=== PATIENT | female | born 1940 | race Caucasian/White ===

== ENCOUNTER 2019-02-25 14:07 | IRF | payer MEDICARE, OTHER, SELFPAY ==
[2019-02-25 14:51] LABS: Glucose Point of Care 216 (65-105)
[2019-02-25 14:57] VITALS: BP 151/73; PULSE 65; RESP 18; TEMP 36.2; O2SAT 96; BMI 18.3
--- NOTE | 2019-02-25 16:47 | P.DS_ITS ---
DS: Summary Time Spent with Patient Time attestation: Total time spent providing and/or coordinating discharge ser vices: 35 minutes DS: Data Data Completed and Pending Labs on day of discharge: Labs from last 24 hours 02/25/19 14:46 POC Capillary Glucose 216 H Discharge Plan Discharge Discharge Medications: No Action ergocalciferol (vitamin D2) 2,500 unit capsule 2,500 unit PO DAILY RF: 0 atenolol 25 mg tablet 50 mg PO BID RF: 0 Durlaza 162.5 mg capsule,extended release 24hr 162.5 mg PO DAILY RF: 0 Januvia 100 mg Tablet 100 mg PO DAILY RF: 0 ezetimibe 10 mg tablet 10 mg PO DAILY RF: 0 levofloxacin [Levaquin] 750 mg Tablet 750 mg PO DAILY 3 Days Qty: 3 RF: 0 lisinopril 40 mg tablet 40 mg PO DAILY 30 Days Qty: 30 RF: 0 insulin aspart U-100 [Novolog U-100 Insulin aspart] 100 unit/mL Solution 3 - 6 unit subcut TIDWM Qty: 10 RF: 0 Date of admission: 02/25/19 14:07 Primary Care Provider: UNKNOWN,DOCTOR Admitting Provider: Sher Ortega Attending physician on admission: Sher Ortega
[2019-02-25 17:41] LABS: Glucose Point of Care 174 (65-105)
[2019-02-25 18:00] VITALS: PULSE 64
[2019-02-25] MEDS: atenoloL 50 MG TABLET PO (18:00)
[2019-02-25 18:01] VITALS: BP 146/56; PULSE 64
--- NOTE | 2019-02-25 20:36 | ADMGEN ---
This patient, Marily St, was admitted to [facility] Room 219-02. Patient/family oriented to hospital policies and general routines including ID bracelet, bed and alarms, visiting hours, pain management, procedures, bathroom and other care routines, personal items, smoking policy, room service/diet, and visiting hours. Valuables list has been completed. Information on how to activate the Rapid Response Team has been discussed. Patient/Family are encouraged to report perceived risks to care and to ask questions if they do not understand what they are told or what they should do. 1450 Here per 3rd med./surg. staff in bed, awake, alert, no complaints, up in bed, call parsons within reach.
[2019-02-25 21:11] VITALS: BP 154/57; PULSE 65; RESP 20; TEMP 36.3; O2SAT 94
[2019-02-26 04:59] LABS: Basophils Absolute Auto 0.1 K/mm3 (0.0-0.1); Basophils Percent Auto 0.9 % (0.2-1.2); Eosinophils Absolute Auto 0.2 K/mm3 (0-0.3); Eosinophils Percent Auto 1.6 % (0-4.4); Hematocrit 40.9 % (37.0-47.0); Hemoglobin 13.8 g/dL (12.0-15.0); Immature Granulocyte Absolute 0.08 K/mm3 (0.00-0.031); Immature Granulocyte Percent A 0.6 % (0-0.5); Lymphocytes Absolute Auto 3.76 K/mm3 (0.9-3.2); Mean Corpuscular HGB Conc 33.7 g/dl (32-36); Mean Corpuscular Hemoglobin 29.9 pg (26-34); Mean Corpuscular Volume 88.7 fl (80-100); Mean Platelet Volume 10.8 fl (7.4-10.4); Monocytes Absolute Auto 1.4 K/mm3 (0.1-0.6); Monocytes Percent Auto 9.3 % (2.6-8.5); Neutrophils Absolute Auto 8.9 K/mm3 (1.3-6.7); Neutrophils Percent Auto 61.6 % (45.5-73.1); Platelet Count Result 299 k/mm3 (150-375); Red Blood Count 4.61 M/mm3 (4.2-5.4); Red Cell Distribution Width 13.6 % (11.5-14.5); White Blood Count 14.5 K/mm3 (4.5-10.0)
[2019-02-26 05:11] LABS: Blood Urea Nitrogen 22 mg/dL (7-17); Calcium 8.9 mg/dL (8.4-10.2); Carbon Dioxide 26 mmol/L (22-30); Chloride 104 mmol/L (98-107); Cholesterol 170 mg/dL (0-200); Estimated CRCL calculation 40 ml/min; Estimated Glomerular Filt Rate > 60; Glucose 247 mg/dL (65-105); HDL Direct 25 mg/dL; Sodium 137 mmol/L (137-145); Triglycerides 167 mg/dL (<150)
[2019-02-26 05:22] LABS: LDL Cholesterol Direct 132 mg/dL
[2019-02-26 06:00] VITALS: BP 215/74; PULSE 56; RESP 20; TEMP 36.4; O2SAT 94
[2019-02-26 06:53] LABS: Glucose Point of Care 244 (65-105)
[2019-02-26 07:14] VITALS: BP 120/88
[2019-02-26] MEDS: INSULIN ASPART (*BKC) 100 UNITS/ML SUB-Q ×3 (09:06→17:16)
[2019-02-26 09:08] VITALS: PULSE 56
[2019-02-26] MEDS: EZETIMIBE 10 MG TABLET PO (09:08)
[2019-02-26] MEDS: ASPIRIN 81 MG ENTERIC TABLET 162 MG PO (09:08)
[2019-02-26] MEDS: atenoloL 50 MG TABLET PO ×2 (09:08→17:15)
[2019-02-26] MEDS: lisinopriL 20 MG TABLET 40 MG PO (09:09)
[2019-02-26 12:13] LABS: Glucose Point of Care 274 (65-105)
--- NOTE | 2019-02-26 13:48 | RPD ---
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 The patient needs physician monitoring and treatment of hypertension, hyperglycemia, UTI with urinary incontinence, monitoring for adverse reactions to new medications, monitoring of infection, and pain control. The patient requires nursing services for frequent neuro checks, anticoagulation therapy, medication management and education, pressure relief and skin care management, monitoring of labs, bowel and bladder training, diabetes management and education, and fall/safety precautions. Deficits include:ADLs, Balance, Endurance, Family Training/Education, Mobility, Pain Management, ROM, Safety, Strength, Transfers, Speech, and Cognition. Keyliner/Case Management for: Discharge Planning and Patient/Family Counseling Physical Therapy: 5 days per week for 90 minutes. Treatments may include: Therapeutic Exercise, Gait Training, Neuromuscular Re-education, Transfer Training, Community Reintegration, Bed Mobility, Patient/Family Education, Wheelchair Mobility Group Therapy/Concurrent Therapy Rationales: -Improve attention span during functional activities in a distracted environment. -Enhance problem solving and/or adequate judgment skills during functional activities in a distracted environment. -Promote increased safety awareness in a distracted environment to reduce fall risk with functional tasks, transfers, and ambulation to allow a more safe, self-sufficient return to the home environment. -Improve dynamic balance skills to promote safety and independence with functional activities in a distracted environment for maximum gain. Occupational Therapy: 5 days per week for 90 minutes. Treatments may include: Therapeutic Exercise, Therapeutic Activity, Cognitive Training, Self-Care Transfer Training, Community Reintegration, Home Management, Patient/Family Education, Wheelchair Mobility Training, Energy Conservation Training Group Therapy/Concurrent Therapy Rationales: -Allow therapist to observe and teach generalization and carry-over of skills learned in individual therapy. -Enhance problem solving and sequencing skills during therapeutic activities in a distracted environment. -Promote increased safety awareness in a realistic setting to reduce fall risk with functional tasks due to visual and verbal distractions. -Increase functional level with ADLs, ADL transfers and use of adaptive equipment through therapeutic activities with others while promoting safety to allow a more safe, self-sufficient return home. Medical Prognosis: Good Anticipated Length of Stay: 10 days Rehab Goals: Eating Goal: 05-Setup or Clean Up Assistance Oral Hygiene Goal: 06-Independent Toileting Hygiene Goal: 04-Supervision or Touching Assistance Shower/Bathe Self Goal: 04-Supervision or Touching Assistance Upper Body Dressing Goal: 04-Supervision or Touching Assistance Lower Body Dressing Goal: 04-Supervision or Touching Assistance Putting On/Taking Off Footwear Goal: 04-Supervision or Touching Assistance Rolling Left and Right Goal: 05-Setup or Clean Up Assistance Sit to Lying Goal: 05-Setup or Clean Up Assistance Lying to Sitting on Side of Bed Goal: 05-Setup or Clean Up Assistance Sit to Stand Goal: 05-Setup or Clean Up Assistance Chair/[id number] Transfer Goal: 05-Setup or Clean Up Assistance Toilet Transfer Goal: 04-Supervision or Touching Assistance Car Transfer Goal: 05-Setup or Clean Up Assistance Walk 10' Goal: 03-Partial/Moderate Assistance Walk 50' with Two Turns Goal: 03-Partial/Moderate Assistance Walk 150' Goal: 09-Not Applicable W
[2019-02-26 13:56] VITALS: BMI 18.3
[2019-02-26 14:00] VITALS: BP 150/69; PULSE 62; RESP 16; TEMP 36.6; O2SAT 94
[2019-02-26 14:17] VITALS: BMI 18.3
--- NOTE | 2019-02-26 14:40 | PCNSR ---
On 02/26/19, the student, Saumya Madison, provided care and completed [facility] documentation on this patient. I have reviewed the student's documentation and agree with the findings.
--- NOTE | 2019-02-26 15:14 | REHAB_ITS ---
DATE OF SERVICE: 02/26/2019 An 79-year-old right-handed female has been admitted to [facility] with the patient's primary rehab impairment category of a stroke and etiological diagnosis of acute infarct in right lentiform nucleus. The patient was seen [id number] on February 26, 2019 at 08:30 a.m. HISTORY OF PRESENT ILLNESS: An 79-year-old right-handed female with past medical history of: 1. Hypertension. 2. Diabetes mellitus. Presented to the [facility] Room on 02/22/2019 with the complaints of left-sided weakness along with slurred speech and recurrent falls. She is usually very active and goes golfing about 3 times a week. She had a CT scan, which revealed right lacunar infract of undetermined age. MRI of the brain documented acute infarct, the right lentiform nucleus, along with the chronic cystic encephalomalacia in the left frontal lobe and right parietal lobe, deep white matter. In addition to the nonspecific white matter disease and pontine disease on the basis of the chronic small-vessel ischemic changes. Carotid Doppler study documented less than 50% stenosis in the right and left internal carotid artery. The chest x-ray was negative. Her blood pressure was elevated at 206/96. She received one dose of hydralazine and was continued on lisinopril and atenolol. Her blood sugar was 349 with A1c of 9.8. UA was positive and patient was started on IV Rocephin and urine cultures were pending at that time. Medical complications included hypertension, hyperglycemia, urinary incontinence, and falls. The patient was hesitant to start any new medication before consulting her primary care physician, who is Dr. Jonathon Love in [facility], because she was unable to tolerate statins in the past and she was already on Zetia. Neurology service was consulted and confirmed finding consistent with bihemispheric stroke with left hemiparesis on clinical examination, along with the left facial droop, dysarthria, unstable gait and turned instability. She was discharged to [facility] on aspirin for DVT prophylaxis and p.o. antibiotic for the UTI. Therapy was initiated at the acute care facility and patient was transferred to us from [facility] on 02/25/2019. Surgery or fall, the patient has had no major surgeries in the last 100 days prior to admission. There were falls in the past year. They have had falls with injury in the past year. PAST MEDICAL HISTORY: Hyperlipidemia, hypertension, diabetes mellitus, closed displaced fracture of the shaft of the 5th metacarpal bone of left hand, arthritis, bilateral cataract, myocardial infarction, and shingles. PAST SURGICAL HISTORY: Cataract extraction, colectomy, cardiac catheterization, intestinal surgery, CABG, and cholecystectomy. SOCIAL HISTORY: The patient is retired and lives alone. She is a former smoker of 30 packs a year with a stop date in 1997. She does not use alcohol or any illicit drugs. FAMILY HISTORY: Mother had colon cancer. Father had a cerebrovascular accident. Sibling had esophageal cancer as well. PRIOR LEVEL OF FUNCTION: The patient was independent in eating, oral care, toileting hygiene, bathing and shower upper body, lower body, footwear, left and right rolling, sit to lying, lying to sitting, sit to stand, bed to chair, toilet transfer. She was previously ambulating independently with no assistive device for 750 feet. She was not using any wheelchair and she was able to complete 14 stairs independently. CURRENT LEVEL OF FUNCTION: The patient required setup for the eating or cleanup. Partial assistance for the oral care, toileting hygiene, bathing and shower, upper body dressing, lower body dressing, footwear, rolling left and right, sit to lying, lying to sitting, sit to stand, bed to chair transfer,
[2019-02-26 17:01] LABS: Glucose Point of Care 216 (65-105)
[2019-02-26 17:15] VITALS: PULSE 62
[2019-02-26 21:41] VITALS: BP 140/80; PULSE 93; RESP 20; TEMP 36.5; O2SAT 94
[2019-02-27 06:00] VITALS: BP 142/80; PULSE 60; RESP 20; TEMP 36.5; O2SAT 95
[2019-02-27 06:51] LABS: Glucose Point of Care 212 (65-105)
[2019-02-27] MEDS: INSULIN ASPART (*BKC) 100 UNITS/ML SUB-Q ×2 (08:49→12:34)
[2019-02-27 08:50] VITALS: PULSE 60
[2019-02-27] MEDS: EZETIMIBE 10 MG TABLET PO (08:50)
[2019-02-27] MEDS: ASPIRIN 81 MG ENTERIC TABLET 162 MG PO (08:50)
[2019-02-27] MEDS: atenoloL 50 MG TABLET PO ×2 (08:50→17:31)
[2019-02-27] MEDS: lisinopriL 20 MG TABLET 40 MG PO (08:51)
[2019-02-27 12:10] LABS: Glucose Point of Care 253 (65-105)
--- NOTE | 2019-02-27 12:51 | WPDNEURORHBP ---
Subjective Date/time seen: 02/27/19 12:51 Interval history: patient is here with a history of stroke and left-sided hemiparesis arm and leg equally involved. She is being treated presently for the UTI does not have any chills or fever sore throat headache nausea vomiting chest pain shortness of breath she was present physically at the time of the weekly conference with her uncle and the friend for 50 years she gives me the history of hypertension and diabetes otherwise moving forward in the rehab Review of Systems Review of Systems: All systems reviewed & are unremarkable except as noted in HPI and below Functional Status Ambulation Ability Ambulation Assistive Devices: Parallel Bars Exam Const: General: comfortable and no acute distress HENMT: Other: normal Eyes: General: appearance normal, both eyes and all related structures Neck: Neck: supple and no JVD Resp: Effort & Inspection: normal respiratory effort Auscultation: clear to auscultation bilaterally Cardio: Rate: regular rate Rhythm: regular rhythm GI: GI Palp: Yes Soft to palpation Auscultation: normal bowel sounds Skin: General skin exam: normal color and no rashes or lesions noted Neuro: Other: patient's mental status examination is fairly decent and intact she is awake alert well oriented in time place and person she has a little neglect on the left side and moderately severe left-sided hemiparesis on the leg equally involved needing assistance in the all the activities of daily living 1+ deep tendon reflexes abnormal gait needing significant assistance and positive Babinski sign on the left side Extrem: General: normal to inspection Objective Data Vital Signs Vital Signs: Vital Signs - 24 hr 02/26/19 14:00 02/26/19 17:15 02/26/19 21:41 Temperature 36.6 C 36.5 C Pulse Rate 62 62 93 Respiratory Rate 16 20 Blood Pressure 150/69 H 140/80 Pulse Oximetry 94 94 02/27/19 06:00 02/27/19 08:50 Temperature 36.5 C Pulse Rate 60 60 Respiratory Rate 20 Blood Pressure 142/80 H Pulse Oximetry 95 Intake/Output Intake/Output: Intake & Output 02/24/19 02/25/19 02/26/19 02/27/19 23:59 23:59 23:59 23:59 Intake Total 840 360 Balance 840 360 Meds/Results Medications: Active Medications Generic Name Dose Route Start Last Admin Trade Name Freq PRN Reason Stop Dose Admin Aspirin 162 mg 02/26/19 09:00 02/27/19 08:50 Aspirin Ec PO 162 mg DAILY JEFF Administration Atenolol 50 mg 02/25/19 17:00 02/27/19 08:50 Tenormin PO 50 mg BID JEFF Administration Dextrose 12.5 gm 02/25/19 17:23 Dextrose 50% Syringe IV PUSH PRN PRN Hypoglycemia Protocol Ezetimibe 10 mg 02/26/19 09:00 02/27/19 08:50 Zetia PO 10 mg DAILY JEFF Administration Glucagon 1 mg 02/25/19 17:23 Glucagon For Inj IM PRN PRN Hypoglycemia Protocol Glucose 15 gm 02/25/19 17:23 Glutose 15 PO PRN PRN Hypoglycemia Protocol Dextrose 1,000 mls @ 100 mls/hr 02/25/19 17:23 Dextrose 5% 1,000 Ml IVPB PRN PRN Hypoglycemia Protocol Insulin Aspart 3 - 6 units 02/25/19 17:25 02/27/19 12:34 Novolog SUB-Q 4 units TIDWM JEFF Administration Protocol Levofloxacin 750 mg 02/27/19 09:00 02/27/19 08:51 Levaquin Tab PO 750 mg Q48HR JEFF Administration Lisinopril 40 mg 02/26/19 09:00 02/27/19 08:51 Prinivil PO 40 mg DAILY JEFF Administration Sitagliptin Phosphate 100 mg 02/26/19 09:00 02/27/19 08:51 Januvia PO 100 mg DAILY JEFF Administration Labs Labs: Laboratory Results - last 24 hr 02/26/19 02/27/19 02/27/19 16:55 06:48 12:02 POC Capillary Glucose 216 H 212 H 253 H Progress Note: A&P Assessment and Plan (1) DVT prophylaxis: Code(s): Z29.9 - Encounter for prophylactic measures, unspecified Status: Acute (2) UTI (urinary tract infection): Code(s): N39.0 - Urinary tract infection, s
[2019-02-27 14:00] VITALS: BP 159/77; PULSE 68; RESP 18; TEMP 36.1; O2SAT 96
[2019-02-27 17:11] LABS: Glucose Point of Care 200 (65-105)
[2019-02-27 17:31] VITALS: PULSE 68
[2019-02-27 21:26] VITALS: BP 150/70; PULSE 60; RESP 18; TEMP 36.6; O2SAT 94
[2019-02-28 06:11] LABS: Glucose Point of Care 211 (65-105)
[2019-02-28 06:46] VITALS: PULSE 60; RESP 18; TEMP 36.2; O2SAT 93
[2019-02-28] MEDS: INSULIN ASPART (*BKC) 100 UNITS/ML SUB-Q ×2 (09:04→16:58)
[2019-02-28 09:09] VITALS: PULSE 60
[2019-02-28] MEDS: lisinopriL 20 MG TABLET 40 MG PO (09:09)
[2019-02-28] MEDS: atenoloL 50 MG TABLET PO ×2 (09:09→16:58)
[2019-02-28] MEDS: ASPIRIN 81 MG ENTERIC TABLET 162 MG PO (09:09)
[2019-02-28] MEDS: EZETIMIBE 10 MG TABLET PO (09:09)
--- NOTE | 2019-02-28 12:57 | WPDNEURORHBP ---
Subjective Date/time seen: 02/28/19 12:57 Interval history: patient is doing fairly well however her sugars are up being on sliding scale and also Januvia she cannot tolerate metformin so we will have to add small dose of Lantus at night overall neurological status is improved Patient denies any headache nausea vomiting chest pain shortness of breath double vision blurred vision etc Review of Systems Review of Systems: All systems reviewed & are unremarkable except as noted in HPI and below Functional Status Ambulation Ability Ambulation Assistive Devices: Cane, Marty and Parallel Bars Exam Const: General: comfortable and no acute distress HENMT: Other: normal exam Eyes: General: appearance normal, both eyes and all related structures Neck: Neck: supple and no JVD Resp: Effort & Inspection: normal respiratory effort Auscultation: clear to auscultation bilaterally Cardio: Rate: regular rate Rhythm: regular rhythm GI: GI Palp: Yes Soft to palpation Auscultation: normal bowel sounds Skin: General skin exam: normal color and no rashes or lesions noted Neuro: Other: mental status examination is normal cranial examination reveals left-sided facial weakness related to the stroke left-sided hemiparesis improving Extrem: General: normal to inspection Objective Data Vital Signs Vital Signs: Vital Signs - 24 hr 02/27/19 14:00 02/27/19 17:31 02/27/19 21:26 Temperature 36.1 C L 36.6 C Pulse Rate 68 68 60 Respiratory Rate 18 18 Blood Pressure 159/77 H 150/70 H Pulse Oximetry 96 94 02/28/19 06:46 02/28/19 09:09 Temperature 36.2 C L Pulse Rate 60 60 Respiratory Rate 18 Blood Pressure Pulse Oximetry 93 Intake/Output Intake/Output: Intake & Output 02/25/19 02/26/19 02/27/19 02/28/19 23:59 23:59 23:59 23:59 Intake Total 840 840 240 Balance 840 840 240 Meds/Results Medications: Active Medications Generic Name Dose Route Start Last Admin Trade Name Freq PRN Reason Stop Dose Admin Aspirin 162 mg 02/26/19 09:00 02/28/19 09:09 Aspirin Ec PO 162 mg DAILY JEFF Administration Atenolol 50 mg 02/25/19 17:00 02/28/19 09:09 Tenormin PO 50 mg BID JEFF Administration Dextrose 12.5 gm 02/25/19 17:23 Dextrose 50% Syringe IV PUSH PRN PRN Hypoglycemia Protocol Ezetimibe 10 mg 02/26/19 09:00 02/28/19 09:09 Zetia PO 10 mg DAILY JEFF Administration Glucagon 1 mg 02/25/19 17:23 Glucagon For Inj IM PRN PRN Hypoglycemia Protocol Glucose 15 gm 02/25/19 17:23 Glutose 15 PO PRN PRN Hypoglycemia Protocol Dextrose 1,000 mls @ 100 mls/hr 02/25/19 17:23 Dextrose 5% 1,000 Ml IVPB PRN PRN Hypoglycemia Protocol Insulin Aspart 3 - 6 units 02/25/19 17:25 02/28/19 12:09 Novolog SUB-Q Not Given TIDWM JEFF Protocol Insulin Glargine 5 units 02/28/19 21:00 Lantus SUB-Q HS JEFF Levofloxacin 750 mg 02/27/19 09:00 02/27/19 08:51 Levaquin Tab PO 750 mg Q48HR JEFF Administration Lisinopril 40 mg 02/26/19 09:00 02/28/19 09:09 Prinivil PO 40 mg DAILY JEFF Administration Sitagliptin Phosphate 100 mg 02/26/19 09:00 02/28/19 09:09 Januvia PO 100 mg DAILY JEFF Administration Labs Labs: Laboratory Results - last 24 hr 02/27/19 02/28/19 17:06 05:52 POC Capillary Glucose 200 H 211 H Progress Note: A&P Assessment and Plan (1) Left hemiparesis: Code(s): G81.94 - Hemiplegia, unspecified affecting left nondominant side Status: Acute (2) DVT prophylaxis: Code(s): Z29.9 - Encounter for prophylactic measures, unspecified Status: Acute (3) UTI (urinary tract infection): Code(s): N39.0 - Urinary tract infection, site not specified Status: Acute (4) HLD (hyperlipidemia): Code(s): E78.5 - Hyperlipidemia, unspecified Status: Chronic (5) Acute CVA (cerebrovascular accident):
[2019-02-28 14:00] VITALS: BP 152/54; PULSE 62; RESP 18; TEMP 36.2; O2SAT 95
[2019-02-28 16:34] LABS: Glucose Point of Care 201 (65-105)
[2019-02-28 16:58] VITALS: PULSE 62
[2019-02-28] MEDS: AMOXICILLIN/CLAVULANATE K 875-125 MG TAB 1 TABLET PO (20:02)
[2019-02-28] MEDS: INSULIN GLARGINE (*BKC) 100 UNITS/ML SUB-Q (20:25)
[2019-02-28 22:00] VITALS: BP 150/54; PULSE 54; RESP 18; TEMP 36.6; O2SAT 95
[2019-03-01 05:56] VITALS: BP 124/56; PULSE 62; RESP 18; TEMP 36.4; O2SAT 95
[2019-03-01 06:14] LABS: Glucose Point of Care 186 (65-105)
[2019-03-01] MEDS: lisinopriL 20 MG TABLET 40 MG PO (09:22)
[2019-03-01] MEDS: ASPIRIN 81 MG ENTERIC TABLET 162 MG PO (09:22)
[2019-03-01] MEDS: AMOXICILLIN/CLAVULANATE K 875-125 MG TAB 1 TABLET PO ×2 (09:22→20:09)
[2019-03-01 09:23] VITALS: PULSE 62
[2019-03-01] MEDS: atenoloL 50 MG TABLET PO ×2 (09:23→17:08)
[2019-03-01] MEDS: EZETIMIBE 10 MG TABLET PO (09:23)
--- NOTE | 2019-03-01 11:49 | WPDNEURORHBP ---
Subjective Date/time seen: 03/01/19 11:49 Interval history: patient is very happy that she has taken 29 steps of course with the assistance she denies any chest pain shortness of breath and any new neurological symptoms particularly nothing to suggest TIA headache chest pain shortness of breath Review of Systems Review of Systems: All systems reviewed & are unremarkable except as noted in HPI and below Functional Status Ambulation Ability Ability to Ambulate 10 Feet: Moderate Assistance X 1 Ambulation Assistive Devices: Cane, Marty Exam Const: General: comfortable and no acute distress HENMT: General nose exam: Normal nares present Mouth: Yes moist mucous membranes Eyes: General: appearance normal, both eyes and all related structures Neck: Neck: supple and no JVD Resp: Effort & Inspection: normal respiratory effort Auscultation: clear to auscultation bilaterally Cardio: Rate: regular rate Rhythm: regular rhythm GI: GI Palp: Yes Soft to palpation Auscultation: normal bowel sounds Skin: General skin exam: normal color and no rashes or lesions noted Neuro: Other: patient's mental status is normal cranial nerve examination reveals facial asymmetry related to the stroke and also the hemiparesis which is improving of course with the assistance Extrem: General: normal to inspection Objective Data Vital Signs Vital Signs: Vital Signs - 24 hr 02/28/19 14:00 02/28/19 16:58 02/28/19 22:00 Temperature 36.2 C L 36.6 C Pulse Rate 62 62 54 L Respiratory Rate 18 18 Blood Pressure 152/54 H 150/54 H Pulse Oximetry 95 95 03/01/19 05:56 03/01/19 09:23 Temperature 36.4 C Pulse Rate 62 62 Respiratory Rate 18 Blood Pressure 124/56 L Pulse Oximetry 95 Intake/Output Intake/Output: Intake & Output 02/26/19 02/27/19 02/28/19 03/01/19 23:59 23:59 23:59 23:59 Intake Total 840 840 720 240 Balance 840 840 720 240 Meds/Results Medications: Active Medications Generic Name Dose Route Start Last Admin Trade Name Freq PRN Reason Stop Dose Admin Amoxicillin/Clavulanate Potassium 1 tablet 02/28/19 21:00 03/01/19 09:22 Augmentin 875-125 Mg Tab PO 03/07/19 09:01 1 tablet Q12HR JEFF Administration Aspirin 162 mg 02/26/19 09:00 03/01/19 09:22 Aspirin Ec PO 162 mg DAILY JEFF Administration Atenolol 50 mg 02/25/19 17:00 03/01/19 09:23 Tenormin PO 50 mg BID JEFF Administration Dextrose 12.5 gm 02/25/19 17:23 Dextrose 50% Syringe IV PUSH PRN PRN Hypoglycemia Protocol Ezetimibe 10 mg 02/26/19 09:00 03/01/19 09:23 Zetia PO 10 mg DAILY JEFF Administration Glucagon 1 mg 02/25/19 17:23 Glucagon For Inj IM PRN PRN Hypoglycemia Protocol Glucose 15 gm 02/25/19 17:23 Glutose 15 PO PRN PRN Hypoglycemia Protocol Dextrose 1,000 mls @ 100 mls/hr 02/25/19 17:23 Dextrose 5% 1,000 Ml IVPB PRN PRN Hypoglycemia Protocol Insulin Aspart 3 - 6 units 02/25/19 17:25 03/01/19 08:45 Novolog SUB-Q Not Given TIDWM [facility] Protocol Insulin Glargine 5 units 02/28/19 21:00 02/28/19 20:25 Lantus SUB-Q 5 units HS JEFF Administration Lisinopril 40 mg 02/26/19 09:00 03/01/19 09:22 Prinivil PO 40 mg DAILY JEFF Administration Sitagliptin Phosphate 100 mg 02/26/19 09:00 03/01/19 09:23 Januvia PO 100 mg DAILY JEFF Administration Labs Labs: Laboratory Results - last 24 hr 02/28/19 03/01/19 16:30 05:45 POC Capillary Glucose 201 H 186 H Progress Note: A&P Assessment and Plan (1) Left hemiparesis: Code(s): G81.94 - Hemiplegia, unspecified affecting left nondominant side Status: Acute (2) DVT prophylaxis: Code(s): Z29.9 - Encounter for prophylactic measures, unspecified Status: Acute (3) UTI (urinary tract infection): Code(s): N39.0 - Urinary tract infection, site not specified Status: Acute (4) HLD (hype
[2019-03-01] MEDS: INSULIN ASPART (*BKC) 100 UNITS/ML SUB-Q (12:07)
--- NOTE | 2019-03-01 12:45 | PCDIET ---
Nutrition Follow-Up Complete: Nutrition Diagnosis: Inadequate energy intake related to decreased appetite as evidenced by unintentional weight loss of approximetley 7.5kg in 2-3 months and report of low appetite. Nutrition Goals: Patient will consume >75% of all meals and drink supplemental drink Glucerna. Goals met. Patient consumed average of 79% of meals since 02/27/19 on diabetic diet which is appropriate. Patient reports taking Glucerna 1x daily and would like to continue to receive daily. Last recorded weight is 47 kg. Recommend obtaining new weight. Bowel Motility: No documented BM; however, patient denies GI c/o at time of visit. Labs Reviewed: Glu (186) Meds Noted: Augmentin, Novolog, Lantus, Januvia Additional Notes: No documented skin breakdown. Recommend adding medication to promote bowel movement, if indicated. Nutrition Monitoring and Evaluation: Will follow up in 7 days.
--- NOTE | 2019-03-01 13:07 | PCPTNOTE ---
Bridget AYolanda David PTA completed an inpatient rehab wheelchair evaluation on [address] on 03/01/2019. The patient is unable to safely and independently ambulate household distances due to their current impairments. Their diagnosis is CVA and their impairments include decreased strength, decreased endurance, decreased range of motion, decreased balance, and lower extremity weakness. Marily's weight bearing status is weight-bearing as tolerated on the bilateral lower legs. The patient demonstrates significant functional mobility limitations that impair their ability to participate in mobility-related activities of daily living (MRADLs), including toileting, feeding, dressing, grooming, and bathing in the customary locations in the home. These limitations cannot be sufficiently resolved by the use of an appropriately fitted cane or walker. It is recommended that the patient utilize a wheelchair for functional mobility within the home in order to facilitate optimal safety, independence and participation in all MRADL's and adequately access their home environment on a regular basis. The patient's home provides adequate access between rooms, maneuvering space, and surfaces to accommodate the recommended wheelchair. The use of a wheelchair for functional mobility is strongly recommended and the patient is receptive to using the wheelchair. The use of this wheelchair will significantly improve the patient's ability to participate in MRADLS and the patient will use it on a regular basis in the home. This will facilitate optimal safety, independence, and participation. The patient has demonstrated sufficient physical and mental capabilities needed to safely propel a manual wheelchair that is provided in the home during a typical day. Recommended Wheelchair Frame: standard Recommended Wheelchair Size: 18x18 Recommended Wheelchair Cushion: standard Wheelchair Leg Recommendations: swing away leg rests - Anti-tippers are recommended due to patient demonstrating increased risk for falls. They would benefit from anti-tippers with added safety and stabilization. - A LEFT arm trough is recommended because the patient has hemiplegia. - Adjustable arm height is recommended because the patient requires an arm height that is different than that which is available using non-adjustable arms. The patient spends at least 2 hours per day in the wheelchair. 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 Referring Physician Date I agree with and certify that the above recommendation is medically necessary. Referring Physician Date
--- NOTE | 2019-03-01 13:12 | PCPTNOTE ---
[address] was evaluated for a malcolm cane on 03/01/2019 by this physical therapist medical receptionist medical assistant. The malcolm cane will resolve patient's mobility limitations and will be used for ADL's within the home. The patient can safely use the malcolm cane. ?The malcolm cane will resolve the patient?s mobility deficits, including decreased left sided weakness in left upper extremity and left lower extremity, decreased balance and decreased endurance.
[2019-03-01 14:00] VITALS: BP 128/62; PULSE 66; RESP 18; TEMP 36.3; O2SAT 97
[2019-03-01 16:29] LABS: Glucose Point of Care 260 (65-105)
[2019-03-01 16:38] LABS: Glucose Point of Care 127 (65-105)
[2019-03-01 17:08] VITALS: PULSE 66
[2019-03-01] MEDS: INSULIN GLARGINE (*BKC) 100 UNITS/ML SUB-Q (20:43)
[2019-03-01 22:00] VITALS: BP 168/56; PULSE 75; RESP 18; TEMP 36.2; O2SAT 99
[2019-03-02 05:53] VITALS: BP 126/56; PULSE 82; RESP 18; TEMP 36.5; O2SAT 98
[2019-03-02 06:31] LABS: Glucose Point of Care 196 (65-105)
[2019-03-02] MEDS: ASPIRIN 81 MG ENTERIC TABLET 162 MG PO (08:42)
[2019-03-02] MEDS: AMOXICILLIN/CLAVULANATE K 875-125 MG TAB 1 TABLET PO ×2 (08:42→20:17)
[2019-03-02 08:43] VITALS: PULSE 82
[2019-03-02] MEDS: lisinopriL 20 MG TABLET 40 MG PO (08:43)
[2019-03-02] MEDS: EZETIMIBE 10 MG TABLET PO (08:43)
[2019-03-02] MEDS: atenoloL 50 MG TABLET PO ×2 (08:43→17:30)
--- NOTE | 2019-03-02 12:00 | WPDNEURORHBP ---
Subjective Date/time seen: 03/02/19 12:00 Interval history: patient is little emotional today and crying due to having had stroke otherwise she is improving in the left hemiparesis she does have movement in the left shoulder and also left foot and able to take several steps with the help of the therapist denies any headache nausea vomiting chest pain or shortness of breath Review of Systems Review of Systems: All systems reviewed & are unremarkable except as noted in HPI and below Functional Status Ambulation Ability Ability to Ambulate 10 Feet: Moderate Assistance X 1 Ambulation Assistive Devices: Cane, Marty Exam Const: General: comfortable and no acute distress HENMT: General nose exam: Normal nares present Mouth: Yes moist mucous membranes Eyes: General: appearance normal, both eyes and all related structures Neck: Neck: supple and no JVD Resp: Effort & Inspection: normal respiratory effort Auscultation: clear to auscultation bilaterally Cardio: Rate: regular rate Rhythm: regular rhythm Skin: General skin exam: normal color and no rashes or lesions noted Neuro: Other: patient's mental status is normal cranial nerve examination reveals flattening of the left nasal labial fold and moderate left hemiparesis which is slowly improving She needs assistance all the activities of daily living Objective Data Vital Signs Vital Signs: Vital Signs - 24 hr 03/01/19 14:00 03/01/19 17:08 03/01/19 22:00 Temperature 36.3 C L 36.2 C L Pulse Rate 66 66 75 Respiratory Rate 18 18 Blood Pressure 128/62 168/56 H Pulse Oximetry 97 99 03/02/19 05:53 03/02/19 08:43 Temperature 36.5 C Pulse Rate 82 82 Respiratory Rate 18 Blood Pressure 126/56 L Pulse Oximetry 98 Intake/Output Intake/Output: Intake & Output 02/27/19 02/28/19 03/01/19 03/02/19 23:59 23:59 23:59 23:59 Intake Total 840 720 720 360 Balance 840 720 720 360 Meds/Results Medications: Active Medications Generic Name Dose Route Start Last Admin Trade Name Freq PRN Reason Stop Dose Admin Amoxicillin/Clavulanate Potassium 1 tablet 02/28/19 21:00 03/02/19 08:42 Augmentin 875-125 Mg Tab PO 03/07/19 09:01 1 tablet Q12HR JEFF Administration Aspirin 162 mg 02/26/19 09:00 03/02/19 08:42 Aspirin Ec PO 162 mg DAILY JEFF Administration Atenolol 50 mg 02/25/19 17:00 03/02/19 08:43 Tenormin PO 50 mg BID JEFF Administration Dextrose 12.5 gm 02/25/19 17:23 Dextrose 50% Syringe IV PUSH PRN PRN Hypoglycemia Protocol Ezetimibe 10 mg 02/26/19 09:00 03/02/19 08:43 Zetia PO 10 mg DAILY JEFF Administration Glucagon 1 mg 02/25/19 17:23 Glucagon For Inj IM PRN PRN Hypoglycemia Protocol Glucose 15 gm 02/25/19 17:23 Glutose 15 PO PRN PRN Hypoglycemia Protocol Dextrose 1,000 mls @ 100 mls/hr 02/25/19 17:23 Dextrose 5% 1,000 Ml IVPB PRN PRN Hypoglycemia Protocol Insulin Aspart 3 - 6 units 02/25/19 17:25 03/02/19 08:42 Novolog SUB-Q Not Given TIDWM [facility] Protocol Insulin Glargine 5 units 02/28/19 21:00 03/01/19 20:43 Lantus SUB-Q 5 units HS JEFF Administration Lisinopril 40 mg 02/26/19 09:00 03/02/19 08:43 Prinivil PO 40 mg DAILY JEFF Administration Sitagliptin Phosphate 100 mg 02/26/19 09:00 03/02/19 08:43 Januvia PO 100 mg DAILY JEFF Administration Labs Labs: Laboratory Results - last 24 hr 03/01/19 03/01/19 03/02/19 11:45 16:34 06:26 POC Capillary Glucose 260 H 127 H 196 H Progress Note: A&P Assessment and Plan (1) Left hemiparesis: Code(s): G81.94 - Hemiplegia, unspecified affecting left nondominant side Status: Acute (2) DVT prophylaxis: Code(s): Z29.9 - Encounter for prophylactic measures, unspecified Status: Acute (3) UTI (urinary tract infection): Code(s): N39.0 - Urinary tract infection, site not specified S
[2019-03-02 12:15] LABS: Glucose Point of Care 256 (65-105)
[2019-03-02] MEDS: INSULIN ASPART (*BKC) 100 UNITS/ML SUB-Q (12:23)
[2019-03-02 14:00] VITALS: BP 175/67; PULSE 62; RESP 18; TEMP 36.4; O2SAT 94
[2019-03-02 17:07] LABS: Glucose Point of Care 144 (65-105)
[2019-03-02 17:30] VITALS: PULSE 62
[2019-03-02 20:16] VITALS: BP 183/63; PULSE 56; RESP 18; TEMP 36.6; O2SAT 93
[2019-03-02] MEDS: INSULIN GLARGINE (*BKC) 100 UNITS/ML SUB-Q (20:19)
[2019-03-03 06:00] VITALS: BP 140/60; PULSE 59; RESP 18; TEMP 36.6; O2SAT 95
[2019-03-03 06:52] LABS: Glucose Point of Care 155 (65-105)
[2019-03-03] MEDS: AMOXICILLIN/CLAVULANATE K 875-125 MG TAB 1 TABLET PO ×2 (08:44→20:07)
[2019-03-03] MEDS: EZETIMIBE 10 MG TABLET PO (08:44)
[2019-03-03] MEDS: ASPIRIN 81 MG ENTERIC TABLET 162 MG PO (08:44)
[2019-03-03] MEDS: lisinopriL 20 MG TABLET 40 MG PO (08:44)
[2019-03-03 08:45] VITALS: PULSE 64
[2019-03-03] MEDS: atenoloL 50 MG TABLET PO ×2 (08:45→17:26)
[2019-03-03 12:02] LABS: Glucose Point of Care 228 (65-105)
[2019-03-03] MEDS: INSULIN ASPART (*BKC) 100 UNITS/ML SUB-Q (12:24)
[2019-03-03 14:00] VITALS: BP 180/72; PULSE 56; RESP 18; TEMP 36.6; O2SAT 96
[2019-03-03 16:59] LABS: Glucose Point of Care 144 (65-105)
[2019-03-03 17:26] VITALS: PULSE 566
[2019-03-03] MEDS: INSULIN GLARGINE (*BKC) 100 UNITS/ML SUB-Q (20:06)
[2019-03-03 21:29] VITALS: BP 163/59; PULSE 56; RESP 20; TEMP 36.3; O2SAT 96
[2019-03-03 21:54] LABS: Glucose Point of Care 220 (65-105)
[2019-03-04 06:00] VITALS: BP 169/70; PULSE 72; RESP 16; TEMP 36.2; O2SAT 97
[2019-03-04 06:33] LABS: Glucose Point of Care 155 (65-105)
[2019-03-04 09:09] VITALS: PULSE 74
[2019-03-04] MEDS: AMOXICILLIN/CLAVULANATE K 875-125 MG TAB 1 TABLET PO ×2 (09:09→20:15)
[2019-03-04] MEDS: EZETIMIBE 10 MG TABLET PO (09:09)
[2019-03-04] MEDS: ASPIRIN 81 MG ENTERIC TABLET 162 MG PO (09:09)
[2019-03-04] MEDS: atenoloL 50 MG TABLET PO ×2 (09:09→16:50)
[2019-03-04] MEDS: lisinopriL 20 MG TABLET 40 MG PO (09:10)
[2019-03-04 11:56] LABS: Glucose Point of Care 243 (65-105)
[2019-03-04] MEDS: INSULIN ASPART (*BKC) 100 UNITS/ML SUB-Q (12:20)
--- NOTE | 2019-03-04 13:32 | WPDNEURORHBP ---
Subjective Date/time seen: 03/04/19 13:32 Interval history: this patient is here having had a stroke of right hemisphere with the left hemiparesis along with history of diabetes mellitus and high blood pressure also being treated for urinary tract infection She denies any headache chest pain or shortness of breath She is depressed and at times has raised concern about emotional state and depression She is not suicidal Review of Systems Review of Systems: All systems reviewed & are unremarkable except as noted in HPI and below Constitutional: Constitutional: Reports no additional constitutional complaints Eyes: Eyes: Reports no additional eye complaints ENT: Reports system reviewed and no additional complaints, except as documented Cardiovascular: Cardiovascular: Reports no additional cardiovascular complaints Respiratory: Respiratory: Reports no additional respiratory complaints Gastrointestinal: Gastrointestinal: Reports no additional gastrointestinal complaints Musculoskeletal: Musculoskeletal: Reports no additional musculoskeletal complaints Integumentary/Breasts: Skin/Breast: Reports system reviewed and no additional complaints, except as docu Neurologic: Comments: she was able to walk 20 steps and happy about it Psychiatric: Comments: patient is emotional relatively tearful and depressed Functional Status Ambulation Ability Ability to Ambulate 10 Feet: Moderate Assistance X 1 Ambulation Assistive Devices: Railings Exam Const: General: comfortable and no acute distress HENMT: General nose exam: Normal nares present Eyes: General: appearance normal, both eyes and all related structures Neck: Neck: supple and no JVD Resp: Effort & Inspection: normal respiratory effort Auscultation: clear to auscultation bilaterally Cardio: Rate: regular rate Rhythm: regular rhythm GI: GI Palp: Yes Soft to palpation Auscultation: normal bowel sounds Skin: General skin exam: normal color and no rashes or lesions noted Neuro: Other: left-sided hemiparesis improvement noted needing assistance all the activities of daily living Extrem: General: normal to inspection Objective Data Vital Signs Vital Signs: Vital Signs - 24 hr 03/03/19 14:00 03/03/19 17:26 03/03/19 21:29 Temperature 36.6 C 36.3 C L Pulse Rate 56 L 566 H 56 L Respiratory Rate 18 20 Blood Pressure 180/72 H 163/59 H Pulse Oximetry 96 96 03/04/19 06:00 03/04/19 09:09 Temperature 36.2 C L Pulse Rate 72 74 Respiratory Rate 16 Blood Pressure 169/70 H Pulse Oximetry 97 Intake/Output Intake/Output: Intake & Output 03/01/19 03/02/19 03/03/19 03/04/19 23:59 23:59 23:59 23:59 Intake Total 720 700 840 360 Balance 720 700 840 360 Meds/Results Medications: Active Medications Generic Name Dose Route Start Last Admin Trade Name Freq PRN Reason Stop Dose Admin Amoxicillin/Clavulanate Potassium 1 tablet 02/28/19 21:00 03/04/19 09:09 Augmentin 875-125 Mg Tab PO 03/07/19 09:01 1 tablet Q12HR JEFF Administration Aspirin 162 mg 02/26/19 09:00 03/04/19 09:09 Aspirin Ec PO 162 mg DAILY JEFF Administration Atenolol 50 mg 02/25/19 17:00 03/04/19 09:09 Tenormin PO 50 mg BID JEFF Administration Dextrose 12.5 gm 02/25/19 17:23 Dextrose 50% Syringe IV PUSH PRN PRN Hypoglycemia Protocol Ezetimibe 10 mg 02/26/19 09:00 03/04/19 09:09 Zetia PO 10 mg DAILY JEFF Administration Glucagon 1 mg 02/25/19 17:23 Glucagon For Inj IM PRN PRN Hypoglycemia Protocol Glucose 15 gm 02/25/19 17:23 Glutose 15 PO PRN PRN Hypoglycemia Protocol Dextrose 1,000 mls @ 100 mls/hr 02/25/19 17:23 Dextrose 5% 1,000 Ml IVPB PRN PRN Hypoglycemia Protocol Insulin Aspart 3 - 6 units 02/25/19 17:25 03/04/19 12:20 Novolog SUB-Q 3 units TIDWM JEFF Administration Protocol Insulin Glargine 5 units 02/28/19 21:00 03/03/19 20
[2019-03-04 14:00] VITALS: BP 141/66; PULSE 62; RESP 18; TEMP 36.4; O2SAT 93
[2019-03-04] MEDS: ESCITALOPRAM OXALATE 5 MG TABLET PO (14:17)
[2019-03-04 16:47] LABS: Glucose Point of Care 128 (65-105)
[2019-03-04 16:50] VITALS: PULSE 60
[2019-03-04] MEDS: INSULIN GLARGINE (*BKC) 100 UNITS/ML 6 UNITS SUB-Q (20:16)
[2019-03-04 22:00] VITALS: BP 174/66; PULSE 56; RESP 16; TEMP 36.3; O2SAT 93
[2019-03-05 02:02] LABS: Glucose Point of Care 194 (65-105)
[2019-03-05 05:12] LABS: Basophils Absolute Auto 0.1 K/mm3 (0.0-0.1); Basophils Percent Auto 0.9 % (0.2-1.2); Eosinophils Absolute Auto 0.4 K/mm3 (0-0.3); Immature Granulocyte Absolute 0.13 K/mm3 (0.00-0.031); Immature Granulocyte Percent A 0.9 % (0-0.5); Lymphocytes Absolute Auto 3.43 K/mm3 (0.9-3.2); Lymphocytes Percent Auto 24.3 % (18.3-44.2); Mean Corpuscular HGB Conc 32.5 g/dl (32-36); Mean Corpuscular Hemoglobin 29.4 pg (26-34); Mean Corpuscular Volume 90.5 fl (80-100); Mean Platelet Volume 11.6 fl (7.4-10.4); Monocytes Absolute Auto 1.7 K/mm3 (0.1-0.6); Monocytes Percent Auto 11.7 % (2.6-8.5); Neutrophils Absolute Auto 8.4 K/mm3 (1.3-6.7); Neutrophils Percent Auto 59.2 % (45.5-73.1); Platelet Count Result 271 k/mm3 (150-375); Red Blood Count 4.42 M/mm3 (4.2-5.4); Red Cell Distribution Width 13.6 % (11.5-14.5); White Blood Count 14.1 K/mm3 (4.5-10.0)
[2019-03-05 05:18] LABS: Blood Urea Nitrogen 19 mg/dL (7-17); Calcium 8.9 mg/dL (8.4-10.2); Carbon Dioxide 26 mmol/L (22-30); Chloride 103 mmol/L (98-107); Estimated CRCL calculation 40 ml/min; Estimated Glomerular Filt Rate > 60; Glucose 147 mg/dL (65-105); Potassium 3.8 mmol/L (3.4-5.0); Sodium 138 mmol/L (137-145)
[2019-03-05 05:50] VITALS: BP 108/56; PULSE 55; RESP 16; TEMP 36.4; O2SAT 96
[2019-03-05 06:03] LABS: Glucose Point of Care 155 (65-105)
[2019-03-05] MEDS: AMOXICILLIN/CLAVULANATE K 875-125 MG TAB 1 TABLET PO ×2 (07:43→21:00)
[2019-03-05] MEDS: ASPIRIN 81 MG ENTERIC TABLET 162 MG PO (07:43)
[2019-03-05] MEDS: ESCITALOPRAM OXALATE 5 MG TABLET PO (07:44)
[2019-03-05] MEDS: EZETIMIBE 10 MG TABLET PO (07:44)
[2019-03-05] MEDS: atenoloL 50 MG TABLET PO ×2 (07:44→16:45)
[2019-03-05] MEDS: lisinopriL 20 MG TABLET 40 MG PO (07:44)
[2019-03-05 11:48] LABS: Glucose Point of Care 157 (65-105)
[2019-03-05 14:33] VITALS: BP 150/60; PULSE 60; RESP 18; TEMP 36; O2SAT 97
[2019-03-05 16:49] LABS: Glucose Point of Care 160 (65-105)
[2019-03-05] MEDS: INSULIN GLARGINE (*BKC) 100 UNITS/ML 6 UNITS SUB-Q (21:00)
[2019-03-05 21:04] LABS: Glucose Point of Care 166 (65-105)
[2019-03-05 21:45] VITALS: BP 144/65; PULSE 57; RESP 20; TEMP 36.4; O2SAT 93
[2019-03-06 05:53] VITALS: BP 155/57; PULSE 51; RESP 20; TEMP 36.3; O2SAT 97
[2019-03-06 07:01] LABS: Glucose Point of Care 145 (65-105)
[2019-03-06] MEDS: ASPIRIN 81 MG ENTERIC TABLET 162 MG PO (08:33)
[2019-03-06] MEDS: AMOXICILLIN/CLAVULANATE K 875-125 MG TAB 1 TABLET PO ×2 (08:33→20:16)
[2019-03-06 08:34] VITALS: PULSE 51
[2019-03-06] MEDS: atenoloL 50 MG TABLET PO ×2 (08:34→17:49)
[2019-03-06] MEDS: ESCITALOPRAM OXALATE 5 MG TABLET PO (08:34)
[2019-03-06] MEDS: EZETIMIBE 10 MG TABLET PO (08:34)
[2019-03-06] MEDS: lisinopriL 20 MG TABLET 40 MG PO (08:35)
--- NOTE | 2019-03-06 11:56 | WPDNEURORHBP ---
Subjective Date/time seen: 03/06/19 11:56 Interval history: this 79-year-old woman who has never been is here because of the stroke having left-sided hemiparesis superimposed with the urinary tract infection which is being treated and she herself is present in the team conference along with the uncle and a friend Patient is happy with the care improving overall however is still has needs Beside the hemiparesis the patient has does not have any headache chest pain shortness of breath double vision blurred vision or any new evidence of stroke or TIAs Review of Systems Constitutional: Constitutional: Reports no additional constitutional complaints Eyes: Eyes: Reports no additional eye complaints ENT: Reports system reviewed and no additional complaints, except as documented Cardiovascular: Cardiovascular: Reports no additional cardiovascular complaints Respiratory: Respiratory: Reports no additional respiratory complaints Gastrointestinal: Gastrointestinal: Reports no additional gastrointestinal complaints Genitourinary: Genitourinary: Reports no additional female genitourinary complaints Musculoskeletal: Musculoskeletal: Reports no additional musculoskeletal complaints Integumentary/Breasts: Skin/Breast: Reports system reviewed and no additional complaints, except as docu Neurologic: Reports system reviewed and no additional complaints, except as documented Psychiatric: Comments: patient's situational depression is much better she is not diet tearful are crying Functional Status Ambulation Ability Ability to Ambulate 10 Feet: Moderate Assistance X 1 Ability to Ambulate 50 Feet With 2 Turns: Moderate Assistance X 1 Ambulation Assistive Devices: Cane, Marty Exam Const: General: comfortable and no acute distress HENMT: General nose exam: Normal nares present Mouth: Yes moist mucous membranes Eyes: General: appearance normal, both eyes and all related structures Neck: Neck: supple and no JVD Resp: Effort & Inspection: normal respiratory effort Auscultation: clear to auscultation bilaterally Cardio: Rate: regular rate Rhythm: regular rhythm GI: GI Palp: Yes Soft to palpation Auscultation: normal bowel sounds Skin: General skin exam: normal color and no rashes or lesions noted Neuro: Other: mental status is normal left-sided hemiparesis is improving however she has still needs and has potential to improve Extrem: General: normal to inspection Objective Data Vital Signs Vital Signs: Vital Signs - 24 hr 03/05/19 14:33 03/05/19 21:45 03/06/19 05:53 Temperature 36.0 C L 36.4 C L 36.3 C L Pulse Rate 60 57 L 51 L Respiratory Rate 18 20 20 Blood Pressure 150/60 H 144/65 H 155/57 H Pulse Oximetry 97 93 97 03/06/19 08:34 Temperature Pulse Rate 51 L Respiratory Rate Blood Pressure Pulse Oximetry Intake/Output Intake/Output: Intake & Output 03/03/19 03/04/19 03/05/19 03/06/19 23:59 23:59 23:59 23:59 Intake Total 840 1060 480 240 Balance 840 1060 480 240 Meds/Results Medications: Active Medications Generic Name Dose Route Start Last Admin Trade Name Freq PRN Reason Stop Dose Admin Amoxicillin/Clavulanate Potassium 1 tablet 02/28/19 21:00 03/06/19 08:33 Augmentin 875-125 Mg Tab PO 03/07/19 09:01 1 tablet Q12HR JEFF Administration Aspirin 162 mg 02/26/19 09:00 03/06/19 08:33 Aspirin Ec PO 162 mg DAILY JEFF Administration Atenolol 50 mg 02/25/19 17:00 03/06/19 08:34 Tenormin PO 50 mg BID JEFF Administration Dextrose 12.5 gm 02/25/19 17:23 Dextrose 50% Syringe IV PUSH PRN PRN Hypoglycemia Protocol Ezetimibe 10 mg 02/26/19 09:00 03/06/19 08:34 Zetia PO 10 mg DAILY JEFF Administration Escitalopram Oxalate 5 mg 03/04/19 13:50 03/06/19 08:34 Lexapro PO 5 mg QAM JEFF Administration Glucagon 1 mg 02/25/19 17:23 Glucagon For Inj IM PRN PRN Hypoglycemia Protocol Glucose 15 gm
[2019-03-06 12:19] LABS: Glucose Point of Care 146 (65-105)
[2019-03-06 14:00] VITALS: BP 154/65; PULSE 55; RESP 18; TEMP 36; O2SAT 98
[2019-03-06 17:44] LABS: Glucose Point of Care 173 (65-105)
[2019-03-06 17:49] VITALS: PULSE 65
[2019-03-06 20:05] LABS: Glucose Point of Care 118 (65-105)
[2019-03-06 22:00] VITALS: BP 173/63; PULSE 58; RESP 16; TEMP 36.5; O2SAT 92
[2019-03-07 05:31] VITALS: BP 174/63; PULSE 55; RESP 16; TEMP 36.2; O2SAT 93
[2019-03-07 06:40] LABS: Glucose Point of Care 138 (65-105)
[2019-03-07] MEDS: ASPIRIN 81 MG ENTERIC TABLET 162 MG PO (08:43)
[2019-03-07] MEDS: ESCITALOPRAM OXALATE 5 MG TABLET PO (08:43)
[2019-03-07] MEDS: AMOXICILLIN/CLAVULANATE K 875-125 MG TAB 1 TABLET PO (08:43)
[2019-03-07] MEDS: EZETIMIBE 10 MG TABLET PO (08:43)
[2019-03-07] MEDS: lisinopriL 20 MG TABLET 40 MG PO (08:43)
[2019-03-07 08:45] VITALS: PULSE 58
[2019-03-07] MEDS: atenoloL 50 MG TABLET PO ×2 (08:45→17:23)
[2019-03-07 11:48] LABS: Glucose Point of Care 177 (65-105)
--- NOTE | 2019-03-07 12:50 | WPDNEURORHBP ---
Subjective Date/time seen: 03/07/19 12:50 Interval history: patient's depression is better she is moving forward and engage in therapy no new specific complaints She is recuperating from stroke with left-sided hemiparesis Review of Systems Constitutional: Constitutional: Reports no additional constitutional complaints Eyes: Eyes: Reports no additional eye complaints ENT: Reports system reviewed and no additional complaints, except as documented Cardiovascular: Cardiovascular: Reports no additional cardiovascular complaints Respiratory: Respiratory: Reports no additional respiratory complaints Gastrointestinal: Gastrointestinal: Reports no additional gastrointestinal complaints Genitourinary: Genitourinary: Reports no additional female genitourinary complaints Musculoskeletal: Musculoskeletal: Reports no additional musculoskeletal complaints Integumentary/Breasts: Skin/Breast: Reports system reviewed and no additional complaints, except as docu Neurologic: Reports system reviewed and no additional complaints, except as documented Psychiatric: Psychiatric: Reports no additional psychiatric complaints Functional Status Ambulation Ability Ability to Ambulate 10 Feet: Moderate Assistance X 1 Ability to Ambulate 50 Feet With 2 Turns: Moderate Assistance X 1 Ambulation Assistive Devices: Cane, Marty Exam Const: General: comfortable and no acute distress HENMT: General nose exam: Normal nares present Mouth: Yes moist mucous membranes Eyes: General: appearance normal, both eyes and all related structures Neck: Neck: supple and no JVD Resp: Effort & Inspection: normal respiratory effort Auscultation: clear to auscultation bilaterally Cardio: Rate: regular rate Rhythm: regular rhythm GI: GI Palp: Yes Soft to palpation Auscultation: normal bowel sounds Skin: General skin exam: normal color and no rashes or lesions noted Neuro: Other: mental status is fairly decent and intact, cranial examination is now except the facial asymmetry Left-sided hemiparesis is improving likewise the sensory deficit is also improving Extrem: General: normal to inspection Objective Data Vital Signs Vital Signs: Vital Signs - 24 hr 03/06/19 14:00 03/06/19 17:49 03/06/19 22:00 Temperature 36.0 C L 36.5 C Pulse Rate 55 L 65 58 L Respiratory Rate 18 16 Blood Pressure 154/65 H 173/63 H Pulse Oximetry 98 92 03/07/19 05:31 03/07/19 08:45 Temperature 36.2 C L Pulse Rate 55 L 58 L Respiratory Rate 16 Blood Pressure 174/63 H Pulse Oximetry 93 Intake/Output Intake/Output: Intake & Output 03/04/19 03/05/19 03/06/19 03/07/19 23:59 23:59 23:59 23:59 Intake Total 1060 480 720 540 Balance 1060 480 720 540 Meds/Results Medications: Active Medications Generic Name Dose Route Start Last Admin Trade Name Freq PRN Reason Stop Dose Admin Aspirin 162 mg 02/26/19 09:00 03/07/19 08:43 Aspirin Ec PO 162 mg DAILY JEFF Administration Atenolol 50 mg 02/25/19 17:00 03/07/19 08:45 Tenormin PO 50 mg BID JEFF Administration Dextrose 12.5 gm 02/25/19 17:23 Dextrose 50% Syringe IV PUSH PRN PRN Hypoglycemia Protocol Ezetimibe 10 mg 02/26/19 09:00 03/07/19 08:43 Zetia PO 10 mg DAILY JEFF Administration Escitalopram Oxalate 5 mg 03/04/19 13:50 03/07/19 08:43 Lexapro PO 5 mg QAM JEFF Administration Glucagon 1 mg 02/25/19 17:23 Glucagon For Inj IM PRN PRN Hypoglycemia Protocol Glucose 15 gm 02/25/19 17:23 Glutose 15 PO PRN PRN Hypoglycemia Protocol Dextrose 1,000 mls @ 100 mls/hr 02/25/19 17:23 Dextrose 5% 1,000 Ml IVPB PRN PRN Hypoglycemia Protocol Insulin Aspart 3 - 6 units 02/25/19 17:25 03/07/19 12:05 Novolog SUB-Q Not Given TIDWM [facility] Protocol Insulin Glargine 6 units 03/04/19 13:39 03/05/19 21:00 Lantus SUB-Q 6 units HS JEFF Administration Lisinopril 40 mg
[2019-03-07 14:00] VITALS: BP 178/69; PULSE 64; RESP 18; TEMP 36.1; O2SAT 93
[2019-03-07 17:07] LABS: Glucose Point of Care 136 (65-105)
[2019-03-07 17:23] VITALS: PULSE 60
[2019-03-07 21:04] LABS: Glucose Point of Care 116 (65-105)
[2019-03-07 21:11] VITALS: BP 167/70; PULSE 56; RESP 20; TEMP 36.4; O2SAT 93
[2019-03-08 06:00] VITALS: BP 174/62; PULSE 53; RESP 20; TEMP 36.1; O2SAT 93
[2019-03-08 06:59] LABS: Glucose Point of Care 140 (65-105)
[2019-03-08 07:15] VITALS: BP 211/60
[2019-03-08] MEDS: ASPIRIN 81 MG ENTERIC TABLET 162 MG PO (11:13)
[2019-03-08 11:14] VITALS: PULSE 64
[2019-03-08] MEDS: atenoloL 50 MG TABLET PO ×2 (11:14→17:21)
[2019-03-08] MEDS: ESCITALOPRAM OXALATE 5 MG TABLET PO (11:14)
[2019-03-08] MEDS: EZETIMIBE 10 MG TABLET PO (11:14)
[2019-03-08] MEDS: lisinopriL 20 MG TABLET 40 MG PO (11:15)
--- NOTE | 2019-03-08 11:35 | WPDNEURORHBP ---
Subjective Date/time seen: 03/08/19 11:35 Interval history: patient is doing well her depression is better she does not have any new specific complaints particularly denies chest pain shortness of breath Review of Systems Constitutional: Constitutional: Reports no additional constitutional complaints Eyes: Eyes: Reports no additional eye complaints ENT: Reports system reviewed and no additional complaints, except as documented Cardiovascular: Cardiovascular: Reports no additional cardiovascular complaints Respiratory: Respiratory: Reports no additional respiratory complaints Gastrointestinal: Gastrointestinal: Reports no additional gastrointestinal complaints Genitourinary: Genitourinary: Reports no additional female genitourinary complaints Musculoskeletal: Musculoskeletal: Reports no additional musculoskeletal complaints Integumentary/Breasts: Skin/Breast: Reports system reviewed and no additional complaints, except as docu Neurologic: Reports system reviewed and no additional complaints, except as documented Psychiatric: Psychiatric: Reports no additional psychiatric complaints Functional Status Ambulation Ability Ability to Ambulate 10 Feet: Moderate Assistance X 1 Ability to Ambulate 50 Feet With 2 Turns: Moderate Assistance X 1 Ambulation Assistive Devices: Cane, Marty Exam Const: General: comfortable and no acute distress HENMT: General nose exam: Normal nares present Mouth: Yes moist mucous membranes Eyes: General: appearance normal, both eyes and all related structures Neck: Neck: supple and no JVD Resp: Auscultation: clear to auscultation bilaterally Cardio: Rate: regular rate Rhythm: regular rhythm GI: GI Palp: Yes Soft to palpation Auscultation: normal bowel sounds Skin: General skin exam: normal color and no rashes or lesions noted Neuro: Other: mental status examination is decent more weakness of the left side is getting better she has already done 57 steps today which is significant improvement from the time we received her at our acute rehab Extrem: General: normal to inspection Objective Data Vital Signs Vital Signs: Vital Signs - 24 hr 03/07/19 14:00 03/07/19 17:23 03/07/19 21:11 Temperature 36.1 C L 36.4 C Pulse Rate 64 60 56 L Respiratory Rate 18 20 Blood Pressure 178/69 H 167/70 H Pulse Oximetry 93 93 03/08/19 06:00 03/08/19 11:14 Temperature 36.1 C L Pulse Rate 53 L 64 Respiratory Rate 20 Blood Pressure 174/62 H Pulse Oximetry 93 Intake/Output Intake/Output: Intake & Output 03/05/19 03/06/19 03/07/19/30/20 23:59 23:59 23:59 23:59 Intake Total 075 810 7745 300 Balance 618 667 5844 300 Meds/Results Medications: Active Medications Generic Name Dose Route Start Last Admin Trade Name Freq PRN Reason Stop Dose Admin Aspirin 162 mg 02/26/19 09:00 03/08/19 11:13 Aspirin Ec PO 162 mg DAILY JEFF Administration Atenolol 50 mg 02/25/19 17:00 03/08/19 11:14 Tenormin PO 50 mg BID JEFF Administration Dextrose 12.5 gm 02/25/19 17:23 Dextrose 50% Syringe IV PUSH PRN PRN Hypoglycemia Protocol Ezetimibe 10 mg 02/26/19 09:00 03/08/19 11:14 Zetia PO 10 mg DAILY JEFF Administration Escitalopram Oxalate 5 mg 03/04/19 13:50 03/08/19 11:14 Lexapro PO 5 mg QAM JEFF Administration Glucagon 1 mg 02/25/19 17:23 Glucagon For Inj IM PRN PRN Hypoglycemia Protocol Glucose 15 gm 02/25/19 17:23 Glutose 15 PO PRN PRN Hypoglycemia Protocol Dextrose 1,000 mls @ 100 mls/hr 02/25/19 17:23 Dextrose 5% 1,000 Ml IVPB PRN PRN Hypoglycemia Protocol Insulin Aspart 3 - 6 units 02/25/19 17:25 03/08/19 11:12 Novolog SUB-Q Not Given TIDWM [facility] Protocol Insulin Glargine 6 units 03/04/19 13:39 03/05/19 21:00 Lantus SUB-Q 6 units HS JEFF Administration Lisinopril 40 mg 02/26/19 09:00 03/08/19 11:15 Prinivil PO
[2019-03-08 12:52] LABS: Glucose Point of Care 196 (65-105)
[2019-03-08 14:00] VITALS: BP 157/79; PULSE 53; RESP 17; TEMP 36.2; O2SAT 97
--- NOTE | 2019-03-08 14:35 | PCDIET ---
Nutrition Follow-Up Complete: Nutrition Diagnosis: Inadequate energy intake related to decreased appetite as evidenced by unintentional weight loss of approximetley 7.5kg in 2-3 months and report of low appetite. Nutrition Goals: Patient will consume >75% of all meals and drink supplemental drink Glucerna. Goals met with patient consuming an average of 78% of meals since 03/02/19. Patient also reports taking Glucerna daily and feels once daily is adequate. Diet order is appropriate. Recommend continuing Glucerna 1x daily for time being. Last recorded weight is 47 kg. Recommend obtaining new weight. Bowel Motility: +BM 03/07/19. Labs Reviewed: Glu (140) Meds Noted: Novolog, Lantus, Januvia Additional Notes: No reported skin breakdown. Will continue to monitor with same goals. Nutrition Monitoring and Evaluation: Will follow up in 7 days.
[2019-03-08 17:21] VITALS: PULSE 53
[2019-03-08 17:42] LABS: Glucose Point of Care 130 (65-105)
[2019-03-08 20:45] LABS: Glucose Point of Care 157 (65-105)
[2019-03-08 22:00] VITALS: BP 187/68; PULSE 54; RESP 17; TEMP 36; O2SAT 97
[2019-03-08] MEDS: INSULIN GLARGINE (*BKC) 100 UNITS/ML 6 UNITS SUB-Q (22:28)
[2019-03-09] VITALS (7 sets, daily range): BP systolic 123–204; BP diastolic 61–74; PULSE 57–97; RESP 16–22; TEMP 36.6–37.1; O2SAT 94–100
[2019-03-09] MEDS: lisinopriL 20 MG TABLET 40 MG PO (05:12)
[2019-03-09] MEDS: atenoloL 50 MG TABLET PO ×2 (05:13→17:51)
[2019-03-09 06:32] LABS: Glucose Point of Care 140 (65-105)
[2019-03-09] MEDS: ASPIRIN 81 MG ENTERIC TABLET 162 MG PO (08:53)
[2019-03-09] MEDS: ESCITALOPRAM OXALATE 5 MG TABLET PO (08:54)
[2019-03-09] MEDS: EZETIMIBE 10 MG TABLET PO (08:54)
[2019-03-09 12:31] LABS: Glucose Point of Care 170 (65-105)
--- NOTE | 2019-03-09 13:15 | WPDNEURORHBP ---
Subjective Date/time seen: 03/09/19 13:15 Interval history: patient was relatively hypertensive earlier this morning when I was called by the night nurse however she did not need clonidine which I had ordered and the blood pressure settled down after her regular medications She is doing fairly well and stable at this point without any complaints Review of Systems Constitutional: Constitutional: Reports no additional constitutional complaints Eyes: Eyes: Reports no additional eye complaints ENT: Reports system reviewed and no additional complaints, except as documented Cardiovascular: Cardiovascular: Reports no additional cardiovascular complaints Respiratory: Respiratory: Reports no additional respiratory complaints Gastrointestinal: Gastrointestinal: Reports no additional gastrointestinal complaints Genitourinary: Genitourinary: Reports no additional female genitourinary complaints Musculoskeletal: Musculoskeletal: Reports no additional musculoskeletal complaints Integumentary/Breasts: Skin/Breast: Reports system reviewed and no additional complaints, except as docu Neurologic: Reports system reviewed and no additional complaints, except as documented Psychiatric: Psychiatric: Reports no additional psychiatric complaints Functional Status Ambulation Ability Ability to Ambulate 10 Feet: Moderate Assistance X 1 Ability to Ambulate 50 Feet With 2 Turns: Moderate Assistance X 1 Ambulation Assistive Devices: Cane, Marty Exam Const: General: comfortable and no acute distress HENMT: General nose exam: Normal nares present Mouth: Yes moist mucous membranes Eyes: General: appearance normal, both eyes and all related structures Neck: Neck: supple and no JVD Resp: Effort & Inspection: normal respiratory effort Auscultation: clear to auscultation bilaterally Cardio: Rate: regular rate Rhythm: regular rhythm GI: GI Palp: Yes Soft to palpation Auscultation: normal bowel sounds Skin: General skin exam: normal color and no rashes or lesions noted Neuro: Other: patient's left hemiparesis is improving and mental status Flick is decent and within the normal range along with a cane the examination except she does have left-sided facial weakness Objective Data Vital Signs Vital Signs: Vital Signs - 24 hr 03/08/19 14:00 03/08/19 17:21 03/08/19 22:00 Temperature 36.2 C L 36.0 C L Pulse Rate 53 L 53 L 54 L Respiratory Rate 17 17 Blood Pressure 157/79 H 187/68 H Pulse Oximetry 97 97 03/09/19 05:13 03/09/19 05:57 03/09/19 07:28 Temperature 37.1 C Pulse Rate 58 L 58 L Respiratory Rate 16 Blood Pressure 167/73 H 204/64 H Pulse Oximetry 94 03/09/19 08:27 Temperature Pulse Rate 57 L Respiratory Rate Blood Pressure 136/61 Pulse Oximetry Intake/Output Intake/Output: Intake & Output 03/06/19 03/07/19 03/08/19 03/09/19 23:59 23:59 23:59 23:59 Intake Total 720 1040 780 360 Balance 720 1040 780 360 Meds/Results Medications: Active Medications Generic Name Dose Route Start Last Admin Trade Name Freq PRN Reason Stop Dose Admin Aspirin 162 mg 02/26/19 09:00 03/09/19 08:53 Aspirin Ec PO 162 mg DAILY JEFF Administration Atenolol 50 mg 02/25/19 17:00 03/09/19 05:13 Tenormin PO 50 mg BID JEFF Administration Dextrose 12.5 gm 02/25/19 17:23 Dextrose 50% Syringe IV PUSH PRN PRN Hypoglycemia Protocol Ezetimibe 10 mg 02/26/19 09:00 03/09/19 08:54 Zetia PO 10 mg DAILY JEFF Administration Escitalopram Oxalate 5 mg 03/04/19 13:50 03/09/19 08:54 Lexapro PO 5 mg QAM JEFF Administration Glucagon 1 mg 02/25/19 17:23 Glucagon For Inj IM PRN PRN Hypoglycemia Protocol Glucose 15 gm 02/25/19 17:23 Glutose 15 PO PRN PRN Hypoglycemia Protocol Dextrose 1,000 mls @ 100 mls/hr 02/25/19 17:23 Dextrose 5% 1,000 Ml IVPB PRN PRN Hypoglycemia Protocol Insulin Aspart 3 - 6
[2019-03-09 18:11] LABS: Glucose Point of Care 138 (65-105)
[2019-03-09] MEDS: INSULIN GLARGINE (*BKC) 100 UNITS/ML 6 UNITS SUB-Q (21:20)
[2019-03-10 06:00] VITALS: BP 164/57; PULSE 55; RESP 16; TEMP 36.3; O2SAT 93
[2019-03-10 06:29] LABS: Glucose Point of Care 139 (65-105)
[2019-03-10 08:20] VITALS: PULSE 55
[2019-03-10] MEDS: atenoloL 50 MG TABLET PO ×2 (08:20→17:57)
[2019-03-10] MEDS: ASPIRIN 81 MG ENTERIC TABLET 162 MG PO (08:20)
[2019-03-10] MEDS: ESCITALOPRAM OXALATE 5 MG TABLET PO (08:21)
[2019-03-10] MEDS: lisinopriL 20 MG TABLET 40 MG PO (08:21)
[2019-03-10] MEDS: EZETIMIBE 10 MG TABLET PO (08:21)
[2019-03-10 12:09] LABS: Glucose Point of Care 217 (65-105)
[2019-03-10] MEDS: INSULIN ASPART (*BKC) 100 UNITS/ML SUB-Q (12:49)
[2019-03-10 14:00] VITALS: BP 153/50; PULSE 62; RESP 18; TEMP 36.1; O2SAT 94
[2019-03-10 17:13] LABS: Glucose Point of Care 102 (65-105)
[2019-03-10 17:57] VITALS: PULSE 62
[2019-03-10 20:40] LABS: Glucose Point of Care 197 (65-105)
[2019-03-10] MEDS: INSULIN GLARGINE (*BKC) 100 UNITS/ML 6 UNITS SUB-Q (20:49)
[2019-03-10 22:00] VITALS: BP 106/60; PULSE 80; RESP 18; TEMP 36.9; O2SAT 100
[2019-03-11 06:00] VITALS: BP 120/78; PULSE 60; RESP 20; TEMP 36.6; O2SAT 93
[2019-03-11 06:37] LABS: Glucose Point of Care 137 (65-105)
[2019-03-11 08:53] VITALS: PULSE 60
[2019-03-11] MEDS: atenoloL 50 MG TABLET PO ×2 (08:53→17:36)
[2019-03-11] MEDS: ASPIRIN 81 MG ENTERIC TABLET 162 MG PO (08:53)
[2019-03-11] MEDS: ESCITALOPRAM OXALATE 5 MG TABLET PO (08:54)
[2019-03-11] MEDS: lisinopriL 20 MG TABLET 40 MG PO (08:54)
[2019-03-11] MEDS: EZETIMIBE 10 MG TABLET PO (08:54)
[2019-03-11 12:11] LABS: Glucose Point of Care 193 (65-105)
--- NOTE | 2019-03-11 12:32 | WPDNEURORHBP ---
Subjective Date/time seen: 03/11/19 12:32 Review of Systems Review of Systems: All systems reviewed & are unremarkable except as noted in HPI and below Functional Status Ambulation Ability Ability to Ambulate 10 Feet: Minimum Assistance X 1 Ability to Ambulate 50 Feet With 2 Turns: Moderate Assistance X 1 Ambulation Assistive Devices: Cane, Marty Exam Const: General: cooperative and comfortable Eyes: General: appearance normal, both eyes and all related structures Neck: Neck: full ROM and no lymphadenopathy Thyroid: thyroid normal Resp: Effort & Inspection: normal respiratory effort Auscultation: clear to auscultation bilaterally Cardio: Rate: regular rate Rhythm: regular rhythm GI: Auscultation: normal bowel sounds Neuro: General: patient oriented x3 and moves all extremities Cranial nerves: Yes Equal, round and reactive pupils present, Yes Bilaterally intact EOM present, Yes Nystagmus not present, Yes facial symmetry, Yes Midline tongue present and Yes Normal gag reflex present Gait exam (Neuro): Ataxic gait present Motor exam (neuro): Abnormal motor strength present (left hemiparesis) Deep tendon reflexes (DTR's): Right triceps reflex intensity grade: 1+, Left triceps reflex intensity grade: 2+, Rt Biceps (C5, C6): 1+, Left biceps reflex intensity grade: 2+, Right brachioradialis reflex intensity grade: 1+, Left brachioradialis reflex intensity grade: 2+, Right patellar reflex intensity grade: 1+, Left patellar reflex intensity grade: 2+, Right ankle reflex intensity grade: 1+ and Left ankle reflex intensity grade: 2+ Plantar Reflex Responses: downgoing: right and upgoing (positive Babinski): left Psych: Appearance: grossly normal Objective Data Vital Signs Vital Signs: Vital Signs - 24 hr 03/10/19 14:00 03/10/19 17:57 03/10/19 22:00 Temperature 36.1 C L 36.9 C Pulse Rate 62 62 80 Respiratory Rate 18 18 Blood Pressure 153/50 H 106/60 Pulse Oximetry 94 100 03/11/19 06:00 03/11/19 08:53 Temperature 36.6 C Pulse Rate 60 60 Respiratory Rate 20 Blood Pressure 120/78 Pulse Oximetry 93 Intake/Output Intake/Output: Intake & Output 03/08/19 03/09/19 03/10/19 03/11/19 23:59 23:59 23:59 23:59 Intake Total 780 600 680 360 Balance 780 600 680 360 Meds/Results Medications: Active Medications Generic Name Dose Route Start Last Admin Trade Name Freq PRN Reason Stop Dose Admin Aspirin 162 mg 02/26/19 09:00 03/11/19 08:53 Aspirin Ec PO 162 mg DAILY JEFF Administration Atenolol 50 mg 02/25/19 17:00 03/11/19 08:53 Tenormin PO 50 mg BID JEFF Administration Dextrose 12.5 gm 02/25/19 17:23 Dextrose 50% Syringe IV PUSH PRN PRN Hypoglycemia Protocol Ezetimibe 10 mg 02/26/19 09:00 03/11/19 08:54 Zetia PO 10 mg DAILY JEFF Administration Escitalopram Oxalate 5 mg 03/04/19 13:50 03/11/19 08:54 Lexapro PO 5 mg QAM JEFF Administration Glucagon 1 mg 02/25/19 17:23 Glucagon For Inj IM PRN PRN Hypoglycemia Protocol Glucose 15 gm 02/25/19 17:23 Glutose 15 PO PRN PRN Hypoglycemia Protocol Dextrose 1,000 mls @ 100 mls/hr 02/25/19 17:23 Dextrose 5% 1,000 Ml IVPB PRN PRN Hypoglycemia Protocol Insulin Aspart 3 - 6 units 02/25/19 17:25 03/11/19 12:01 Novolog SUB-Q Not Given [facility] Protocol Insulin Glargine 6 units 03/04/19 13:39 03/10/19 20:49 Lantus SUB-Q 6 units HS JEFF Administration Lisinopril 40 mg 02/26/19 09:00 03/11/19 08:54 Prinivil PO 40 mg DAILY JEFF Administration Sitagliptin Phosphate 100 mg 02/26/19 09:00 03/11/19 08:54 Januvia PO 100 mg DAILY JEFF Administration Labs Labs: Laboratory Results - last 24 hr 03/10/19 03/10/19 03/11/19 16:45 20:16 06:14 POC Capillary Glucose 102 197 H 137 H 03/11/19 11:50 POC Capillary Glucose 193 H Progress Note: A&P Assessment and Plan (1) Dep
[2019-03-11 14:00] VITALS: BP 175/80; PULSE 58; RESP 16; TEMP 37; O2SAT 94
[2019-03-11 17:07] LABS: Glucose Point of Care 121 (65-105)
[2019-03-11 17:36] VITALS: PULSE 58
[2019-03-11] MEDS: INSULIN GLARGINE (*BKC) 100 UNITS/ML 6 UNITS SUB-Q (20:26)
[2019-03-11 21:25] LABS: Glucose Point of Care 160 (65-105)
[2019-03-11 22:00] VITALS: BP 140/80; PULSE 61; RESP 18; TEMP 36.9; O2SAT 94
[2019-03-12] VITALS (7 sets, daily range): BP systolic 130–172; BP diastolic 62–90; PULSE 57–62; RESP 17–18; TEMP 36.3–36.7; O2SAT 92–94
[2019-03-12 06:01] LABS: Basophils Absolute Auto 0.1 K/mm3 (0.0-0.1); Basophils Percent Auto 0.9 % (0.2-1.2); Eosinophils Absolute Auto 0.4 K/mm3 (0-0.3); Eosinophils Percent Auto 3.2 % (0-4.4); Hematocrit 40.2 % (37.0-47.0); Hemoglobin 13.2 g/dL (12.0-15.0); Immature Granulocyte Percent A 0.9 % (0-0.5); Lymphocytes Absolute Auto 3.38 K/mm3 (0.9-3.2); Lymphocytes Percent Auto 28.9 % (18.3-44.2); Mean Corpuscular HGB Conc 32.8 g/dl (32-36); Mean Corpuscular Hemoglobin 29.7 pg (26-34); Mean Corpuscular Volume 90.3 fl (80-100); Mean Platelet Volume 10.9 fl (7.4-10.4); Monocytes Absolute Auto 1.2 K/mm3 (0.1-0.6); Neutrophils Absolute Auto 6.6 K/mm3 (1.3-6.7); Neutrophils Percent Auto 56.1 % (45.5-73.1); Platelet Count Result 337 k/mm3 (150-375); Red Blood Count 4.45 M/mm3 (4.2-5.4); Red Cell Distribution Width 13.9 % (11.5-14.5); White Blood Count 11.7 K/mm3 (4.5-10.0)
[2019-03-12 06:05] LABS: Blood Urea Nitrogen 13 mg/dL (7-17); Carbon Dioxide 28 mmol/L (22-30); Chloride 104 mmol/L (98-107); Estimated CRCL calculation 46 ml/min; Estimated Glomerular Filt Rate > 60; Glucose 125 mg/dL (65-105); Sodium 138 mmol/L (137-145)
[2019-03-12 07:42] LABS: Glucose Point of Care 138 (65-105)
[2019-03-12] MEDS: ASPIRIN 81 MG ENTERIC TABLET 162 MG PO (08:47)
[2019-03-12] MEDS: lisinopriL 20 MG TABLET 40 MG PO (08:48)
[2019-03-12] MEDS: EZETIMIBE 10 MG TABLET PO (08:48)
[2019-03-12] MEDS: atenoloL 50 MG TABLET PO ×2 (08:48→17:15)
[2019-03-12] MEDS: ESCITALOPRAM OXALATE 5 MG TABLET PO (08:48)
[2019-03-12 12:25] LABS: Glucose Point of Care 218 (65-105)
[2019-03-12] MEDS: INSULIN ASPART (*BKC) 100 UNITS/ML SUB-Q (12:51)
[2019-03-12] MEDS: ERGOCALCIFEROL 50,000 UNIT CAPSULE 50000 UNITS PO (15:17)
[2019-03-12 17:36] LABS: Glucose Point of Care 125 (65-105)
[2019-03-12] MEDS: INSULIN GLARGINE (*BKC) 100 UNITS/ML 6 UNITS SUB-Q (21:02)
[2019-03-12 21:26] LABS: Glucose Point of Care 148 (65-105)
[2019-03-13 06:00] VITALS: BP 166/61; PULSE 97; RESP 20; TEMP 36.4; O2SAT 98
[2019-03-13 07:07] LABS: Glucose Point of Care 129 (65-105)
[2019-03-13] MEDS: ESCITALOPRAM OXALATE 5 MG TABLET PO (07:47)
[2019-03-13] MEDS: ASPIRIN 81 MG ENTERIC TABLET 162 MG PO (07:47)
[2019-03-13 07:48] VITALS: PULSE 64
[2019-03-13] MEDS: EZETIMIBE 10 MG TABLET PO (07:48)
[2019-03-13] MEDS: atenoloL 50 MG TABLET PO ×2 (07:48→17:32)
[2019-03-13] MEDS: lisinopriL 20 MG TABLET 40 MG PO (07:48)
--- NOTE | 2019-03-13 12:23 | WPDNEURORHBP ---
Subjective Date/time seen: 03/13/19 12:23 Interval history: patient is slowly progressing in rehab and improving the left-sided hemiparesis walking about 40 feet with assistance of course quite motivated and energetic the family members were present at the time of the meeting 1 of them was sister from [place] the questions from the OT and PT in the nursing were answered to them Patient is doing fairly well but still needing lot of assistance Review of Systems Constitutional: Constitutional: Reports no additional constitutional complaints Eyes: Eyes: Reports no additional eye complaints ENT: Reports system reviewed and no additional complaints, except as documented Cardiovascular: Cardiovascular: Reports no additional cardiovascular complaints Respiratory: Respiratory: Reports no additional respiratory complaints Gastrointestinal: Gastrointestinal: Reports no additional gastrointestinal complaints Genitourinary: Genitourinary: Reports no additional female genitourinary complaints Musculoskeletal: Musculoskeletal: Reports no additional musculoskeletal complaints Integumentary/Breasts: Skin/Breast: Reports system reviewed and no additional complaints, except as docu Neurologic: Reports system reviewed and no additional complaints, except as documented Psychiatric: Psychiatric: Reports no additional psychiatric complaints Functional Status Ambulation Ability Ability to Ambulate 10 Feet: Minimum Assistance X 1 Ability to Ambulate 50 Feet With 2 Turns: Moderate Assistance X 1 Ambulation Assistive Devices: Cane, Marty Exam Const: General: comfortable and no acute distress HENMT: General nose exam: Normal nares present Mouth: Yes moist mucous membranes Eyes: General: appearance normal, both eyes and all related structures Neck: Neck: supple and no JVD Resp: Effort & Inspection: normal respiratory effort Auscultation: clear to auscultation bilaterally Cardio: Rate: regular rate Rhythm: regular rhythm GI: GI Palp: Yes Soft to palpation Auscultation: normal bowel sounds Skin: General skin exam: normal color and no rashes or lesions noted Neuro: Other: improving left-sided hemiparesis walking about 40 feet with a cane Extrem: General: normal to inspection Objective Data Vital Signs Vital Signs: Vital Signs - 24 hr 03/12/19 14:00 03/12/19 14:35 03/12/19 17:15 Temperature 36.3 C L 36.3 C L Pulse Rate 57 L 57 L 57 L Respiratory Rate 17 17 Blood Pressure 166/62 H 166/62 H Pulse Oximetry 93 93 03/12/19 20:19 03/13/19 06:00 03/13/19 07:48 Temperature 36.4 C L 36.4 C Pulse Rate 62 97 64 Respiratory Rate 18 20 Blood Pressure 172/70 H 166/61 H Pulse Oximetry 92 98 Intake/Output Intake/Output: Intake & Output 03/10/19 03/11/19 03/12/19 03/13/19 23:59 23:59 23:59 23:59 Intake Total 680 660 480 640 Balance 680 660 480 640 Meds/Results Medications: Active Medications Generic Name Dose Route Start Last Admin Trade Name Freq PRN Reason Stop Dose Admin Aspirin 162 mg 02/26/19 09:00 03/13/19 07:47 Aspirin Ec PO 162 mg DAILY JEFF Administration Atenolol 50 mg 02/25/19 17:00 03/13/19 07:48 Tenormin PO 50 mg BID JEFF Administration Dextrose 12.5 gm 02/25/19 17:23 Dextrose 50% Syringe IV PUSH PRN PRN Hypoglycemia Protocol Ezetimibe 10 mg 02/26/19 09:00 03/13/19 07:48 Zetia PO 10 mg DAILY JEFF Administration Ergocalciferol 50,000 unit 03/12/19 09:00 03/12/19 15:17 Drisdol PO 50,000 unit Mo@0900 JEFF Administration Escitalopram Oxalate 5 mg 03/04/19 13:50 03/13/19 07:47 Lexapro PO 5 mg QAM JEFF Administration Glucagon 1 mg 02/25/19 17:23 Glucagon For Inj IM PRN PRN Hypoglycemia Protocol Glucose 15 gm 02/25/19 17:23 Glutose 15 PO PRN PRN Hypoglycemia Protocol Dextrose 1,000 mls @ 100 mls/hr 02/25/19 17:23 Dextrose 5% 1,000 Ml IVPB PRN PRN Hypoglyce
[2019-03-13 12:47] LABS: Glucose Point of Care 193 (65-105)
[2019-03-13 14:00] VITALS: BP 165/66; PULSE 62; RESP 16; TEMP 35.8; O2SAT 94
[2019-03-13 17:32] VITALS: PULSE 62
[2019-03-13 17:47] LABS: Glucose Point of Care 123 (65-105)
[2019-03-13] MEDS: INSULIN GLARGINE (*BKC) 100 UNITS/ML 6 UNITS SUB-Q (21:01)
[2019-03-13 21:12] LABS: Glucose Point of Care 172 (65-105)
[2019-03-13 22:00] VITALS: BP 157/64; PULSE 79; RESP 16; TEMP 36.3; O2SAT 92
[2019-03-14 05:53] LABS: Glucose Point of Care 128 (65-105)
[2019-03-14 06:00] VITALS: BP 174/80; PULSE 58; RESP 16; TEMP 36.1; O2SAT 96
[2019-03-14] MEDS: lisinopriL 20 MG TABLET 40 MG PO (08:33)
[2019-03-14] MEDS: EZETIMIBE 10 MG TABLET PO (08:33)
[2019-03-14] MEDS: ESCITALOPRAM OXALATE 5 MG TABLET PO (08:33)
[2019-03-14] MEDS: ASPIRIN 81 MG ENTERIC TABLET 162 MG PO (08:33)
[2019-03-14 08:34] VITALS: PULSE 68
[2019-03-14] MEDS: atenoloL 50 MG TABLET PO ×2 (08:34→17:52)
[2019-03-14 11:54] LABS: Glucose Point of Care 194 (65-105)
--- NOTE | 2019-03-14 11:57 | WPDNEURORHBP ---
Subjective Date/time seen: 03/14/19 11:57 Interval history: This 79-year-old is on the acute rehab because having had a stroke with left-sided hemiparesis from which she is improving Patient denies any new complaints particularly denies any chest pain shortness of breath nausea vomiting abdominal pain fevers chills or sore throat She is happy with the care she is receiving and engage in therapy and quite motivated Review of Systems Constitutional: Constitutional: Reports no additional constitutional complaints Eyes: Eyes: Reports no additional eye complaints ENT: Reports system reviewed and no additional complaints, except as documented Cardiovascular: Cardiovascular: Reports no additional cardiovascular complaints Respiratory: Respiratory: Reports no additional respiratory complaints Gastrointestinal: Gastrointestinal: Reports no additional gastrointestinal complaints Genitourinary: Genitourinary: Reports no additional female genitourinary complaints Musculoskeletal: Musculoskeletal: Reports no additional musculoskeletal complaints Integumentary/Breasts: Skin/Breast: Reports system reviewed and no additional complaints, except as docu Neurologic: Reports system reviewed and no additional complaints, except as documented Psychiatric: Psychiatric: Reports no additional psychiatric complaints Functional Status Ambulation Ability Ability to Ambulate 10 Feet: Moderate Assistance X 1 Ability to Ambulate 50 Feet With 2 Turns: Moderate Assistance X 1 Ambulation Assistive Devices: Cane, Marty Exam Const: General: comfortable and no acute distress HENMT: General nose exam: Normal nares present Mouth: Yes moist mucous membranes Eyes: General: appearance normal, both eyes and all related structures Neck: Neck: supple and no JVD Resp: Effort & Inspection: normal respiratory effort Auscultation: clear to auscultation bilaterally Cardio: Rate: regular rate Rhythm: regular rhythm GI: GI Palp: Yes Soft to palpation Auscultation: normal bowel sounds Skin: General skin exam: normal color and no rashes or lesions noted Neuro: Other: patient is well oriented time place and person apart from the left-sided facial central weakness the cranial nerve examination is normal she is improving as for as the walking is concerned left hemiparesis is improving and patient is able to walk up to 50 feet reflexes remained the same and Babinski sign is positive on the left side Extrem: General: normal to inspection Objective Data Vital Signs Vital Signs: Vital Signs - 24 hr 03/13/19 14:00 03/13/19 17:32 03/13/19 22:00 Temperature 35.8 C L 36.3 C L Pulse Rate 62 62 79 Respiratory Rate 16 16 Blood Pressure 165/66 H 157/64 H Pulse Oximetry 94 92 03/14/19 06:00 03/14/19 08:34 Temperature 36.1 C L Pulse Rate 58 L 68 Respiratory Rate 16 Blood Pressure 174/80 H Pulse Oximetry 96 Intake/Output Intake/Output: Intake & Output 03/11/19 03/12/19 03/13/19 03/14/19 23:59 23:59 23:59 23:59 Intake Total 116 585 2111 540 Balance 973 218 6757 540 Meds/Results Medications: Active Medications Generic Name Dose Route Start Last Admin Trade Name Freq PRN Reason Stop Dose Admin Aspirin 162 mg 02/26/19 09:00 03/14/19 08:33 Aspirin Ec PO 162 mg DAILY JEFF Administration Atenolol 50 mg 02/25/19 17:00 03/14/19 08:34 Tenormin PO 50 mg BID JEFF Administration Dextrose 12.5 gm 02/25/19 17:23 Dextrose 50% Syringe IV PUSH PRN PRN Hypoglycemia Protocol Ezetimibe 10 mg 02/26/19 09:00 03/14/19 08:33 Zetia PO 10 mg DAILY JEFF Administration Ergocalciferol 50,000 unit 03/12/19 09:00 03/12/19 15:17 Drisdol PO 50,000 unit Mo@0900 JEFF Administration Escitalopram Oxalate 5 mg 03/04/19 13:50 03/14/19 08:33 Lexapro PO 5 mg QAM JEFF Administration Glucagon 1 mg 02/25/19 17:23 Glucagon For Inj IM PRN PRN Hypoglycemia Protocol Glucos
[2019-03-14 14:00] VITALS: BP 165/62; PULSE 55; RESP 18; TEMP 36; O2SAT 95
[2019-03-14 17:07] LABS: Glucose Point of Care 138 (65-105)
[2019-03-14 17:52] VITALS: PULSE 72
[2019-03-14] MEDS: INSULIN GLARGINE (*BKC) 100 UNITS/ML 6 UNITS SUB-Q (20:54)
[2019-03-14 20:55] LABS: Glucose Point of Care 153 (65-105)
[2019-03-14 21:27] VITALS: BP 187/76; PULSE 102; RESP 18; TEMP 36.6; O2SAT 92
[2019-03-15 06:00] VITALS: BP 164/83; PULSE 55; RESP 16; TEMP 36.5; O2SAT 94
[2019-03-15 06:58] LABS: Glucose Point of Care 135 (65-105)
[2019-03-15 08:29] VITALS: PULSE 55
[2019-03-15] MEDS: ESCITALOPRAM OXALATE 5 MG TABLET PO (08:29)
[2019-03-15] MEDS: ASPIRIN 81 MG ENTERIC TABLET 162 MG PO (08:29)
[2019-03-15] MEDS: EZETIMIBE 10 MG TABLET PO (08:29)
[2019-03-15] MEDS: atenoloL 50 MG TABLET PO ×2 (08:29→17:30)
[2019-03-15] MEDS: lisinopriL 20 MG TABLET 40 MG PO (08:30)
--- NOTE | 2019-03-15 09:11 | PCCCNOTE ---
On 03/15/19, the student, [Jacques Thayer ], provided care and completed [facility] documentation on this patient. I have reviewed the student's documentation and agree with the findings.
--- NOTE | 2019-03-15 10:39 | WPDNEURORHBP ---
Subjective Date/time seen: 03/15/19 10:39 Interval history: this patient is here with the stroke with the left-sided hemiparesis and is improving she walked with the him I walker 53 feet and continues to make progress She denies any headache chest pain shortness of breath fevers chills sore throat diarrhea or vomiting Review of Systems Constitutional: Constitutional: Reports no additional constitutional complaints Eyes: Eyes: Reports no additional eye complaints ENT: Reports system reviewed and no additional complaints, except as documented Cardiovascular: Cardiovascular: Reports no additional cardiovascular complaints Respiratory: Respiratory: Reports no additional respiratory complaints Gastrointestinal: Gastrointestinal: Reports no additional gastrointestinal complaints Genitourinary: Genitourinary: Reports no additional female genitourinary complaints Musculoskeletal: Musculoskeletal: Reports no additional musculoskeletal complaints Integumentary/Breasts: Skin/Breast: Reports system reviewed and no additional complaints, except as docu Neurologic: Reports system reviewed and no additional complaints, except as documented Psychiatric: Psychiatric: Reports no additional psychiatric complaints Functional Status Ambulation Ability Ability to Ambulate 10 Feet: Minimum Assistance X 1 Ability to Ambulate 50 Feet With 2 Turns: Minimum Assistance X 1 Ambulation Assistive Devices: Cane, Marty Exam Const: General: comfortable and no acute distress HENMT: General nose exam: Normal nares present Mouth: Yes moist mucous membranes Eyes: General: appearance normal, both eyes and all related structures Neck: Neck: supple and no JVD Resp: Effort & Inspection: normal respiratory effort Auscultation: clear to auscultation bilaterally Cardio: Rate: regular rate Rhythm: regular rhythm GI: GI Palp: Yes Soft to palpation Auscultation: normal bowel sounds Skin: General skin exam: normal color and no rashes or lesions noted Neuro: Other: patient remains alert and well oriented in time place person the cranial examination is also improving by the fact that the face is not assessed is symmetrical is used to be the left-sided neglect is also improving likewise left-sided hemiparesis is also improving Extrem: General: normal to inspection Objective Data Vital Signs Vital Signs: Vital Signs - 24 hr 03/14/19 14:00 03/14/19 17:52 03/14/19 21:27 Temperature 36.0 C L 36.6 C Pulse Rate 55 L 72 102 H Respiratory Rate 18 18 Blood Pressure 165/62 H 187/76 H Pulse Oximetry 95 92 03/15/19 06:00 03/15/19 08:29 Temperature 36.5 C Pulse Rate 55 L 55 L Respiratory Rate 16 Blood Pressure 164/83 H Pulse Oximetry 94 Intake/Output Intake/Output: Intake & Output 03/12/19 03/13/19 03/14/19 03/15/19 23:59 23:59 23:59 23:59 Intake Total 480 1180 1020 240 Balance 480 1180 1020 240 Meds/Results Medications: Active Medications Generic Name Dose Route Start Last Admin Trade Name Freq PRN Reason Stop Dose Admin Aspirin 162 mg 02/26/19 09:00 03/15/19 08:29 Aspirin Ec PO 162 mg DAILY JEFF Administration Atenolol 50 mg 02/25/19 17:00 03/15/19 08:29 Tenormin PO 50 mg BID JEFF Administration Dextrose 12.5 gm 02/25/19 17:23 Dextrose 50% Syringe IV PUSH PRN PRN Hypoglycemia Protocol Ezetimibe 10 mg 02/26/19 09:00 03/15/19 08:29 Zetia PO 10 mg DAILY JEFF Administration Ergocalciferol 50,000 unit 03/12/19 09:00 03/12/19 15:17 Drisdol PO 50,000 unit Mo@0900 JEFF Administration Escitalopram Oxalate 5 mg 03/04/19 13:50 03/15/19 08:29 Lexapro PO 5 mg QAM JEFF Administration Glucagon 1 mg 02/25/19 17:23 Glucagon For Inj IM PRN PRN Hypoglycemia Protocol Glucose 15 gm 02/25/19 17:23 Glutose 15 PO PRN PRN Hypoglycemia Protocol Dextrose 1,000 mls @ 100 mls/hr 02/25/19 17:23 Dextrose 5% 1,000 Ml
[2019-03-15 11:49] LABS: Glucose Point of Care 245 (65-105)
--- NOTE | 2019-03-15 12:09 | PCDIET ---
Nutrition Follow-Up Complete: Nutrition Diagnosis: Inadequate energy intake related to decreased appetite as evidenced by unintentional weight loss of approximately 7.5kg in 2-3 months and report of low appetite. Nutrition Goals: Patient will consume >75% of all meals and drink supplemental drink Glucerna. Goals met. Patient consuming 75-100% of most meals on diabetic diet with Glucerna 1x daily. Recommend continuing present diet/supplement due to light meals being ordered. Patient aware of importance of choosing heart healthy meals long-term and plans to [facility]. Last recorded weight is 47 kg. Recommend obtaining new weight. Bowel Motility: +BM on 03/15/19. Labs Reviewed: Glu (135) Meds Noted: Julissa Vinson, Sekou Arenas Additional Notes: No documented skin breakdown. Will continue to monitor with same goals. Nutrition Monitoring and Evaluation: Will follow up in 7 days.
[2019-03-15] MEDS: INSULIN ASPART (*BKC) 100 UNITS/ML SUB-Q (12:17)
[2019-03-15 14:00] VITALS: BP 174/86; PULSE 60; RESP 18; TEMP 36.2; O2SAT 99
[2019-03-15 17:30] VITALS: PULSE 60
[2019-03-15 17:46] LABS: Glucose Point of Care 147 (65-105)
[2019-03-15 20:14] LABS: Glucose Point of Care 140 (65-105)
[2019-03-15] MEDS: INSULIN GLARGINE (*BKC) 100 UNITS/ML 6 UNITS SUB-Q (20:19)
[2019-03-15 22:00] VITALS: BP 156/61; PULSE 120; RESP 18; TEMP 36.9; O2SAT 92
[2019-03-16 06:00] VITALS: BP 164/70; PULSE 96; RESP 20; TEMP 36.6; O2SAT 93
[2019-03-16 07:09] LABS: Glucose Point of Care 142 (65-105)
[2019-03-16 08:00] VITALS: PULSE 96; RESP 20; O2SAT 93
[2019-03-16 09:21] VITALS: PULSE 96
[2019-03-16] MEDS: ASPIRIN 81 MG ENTERIC TABLET 162 MG PO (09:21)
[2019-03-16] MEDS: lisinopriL 20 MG TABLET 40 MG PO (09:21)
[2019-03-16] MEDS: atenoloL 50 MG TABLET PO ×2 (09:21→17:34)
[2019-03-16] MEDS: EZETIMIBE 10 MG TABLET PO (09:21)
[2019-03-16] MEDS: ESCITALOPRAM OXALATE 5 MG TABLET PO (09:22)
--- NOTE | 2019-03-16 11:56 | WPDNEURORHBP ---
Subjective Date/time seen: 03/16/19 11:56 Interval history: patient is doing remarkably well she walked 73 feet today and quite proud of herself she denies any headache chest pain shortness of breath or any other neurological complaints the stroke signs are improving and her and she herself is a very happy Review of Systems Constitutional: Constitutional: Reports no additional constitutional complaints Eyes: Eyes: Reports no additional eye complaints ENT: Reports system reviewed and no additional complaints, except as documented Cardiovascular: Cardiovascular: Reports no additional cardiovascular complaints Respiratory: Respiratory: Reports no additional respiratory complaints Gastrointestinal: Gastrointestinal: Reports no additional gastrointestinal complaints Genitourinary: Genitourinary: Reports no additional female genitourinary complaints Musculoskeletal: Musculoskeletal: Reports no additional musculoskeletal complaints Integumentary/Breasts: Skin/Breast: Reports system reviewed and no additional complaints, except as docu Neurologic: Reports system reviewed and no additional complaints, except as documented Psychiatric: Psychiatric: Reports no additional psychiatric complaints Functional Status Ambulation Ability Ability to Ambulate 10 Feet: Minimum Assistance X 1 Ability to Ambulate 50 Feet With 2 Turns: Minimum Assistance X 1 Ambulation Assistive Devices: Cane, Marty Exam Const: General: comfortable and no acute distress HENMT: General nose exam: Normal nares present Mouth: Yes moist mucous membranes Eyes: General: appearance normal, both eyes and all related structures Neck: Neck: supple and no JVD Resp: Effort & Inspection: normal respiratory effort Auscultation: clear to auscultation bilaterally Cardio: Rate: regular rate Rhythm: regular rhythm GI: GI Palp: Yes Soft to palpation Auscultation: normal bowel sounds Skin: General skin exam: normal color and no rashes or lesions noted Neuro: Other: the mental status examination is within the normal limits the cranial examination reveals now rather subtle left-sided facial weakness along with the significantly improving left-sided hemiparesis Extrem: General: normal to inspection Objective Data Vital Signs Vital Signs: Vital Signs - 24 hr 03/15/19 14:00 03/15/19 17:30 03/15/19 22:00 Temperature 36.2 C L 36.9 C Pulse Rate 60 60 120 H Respiratory Rate 18 18 Blood Pressure 174/86 H 156/61 H Pulse Oximetry 99 92 03/16/19 06:00 03/16/19 08:00 03/16/19 09:21 Temperature 36.6 C Pulse Rate 96 96 96 Respiratory Rate 20 20 Blood Pressure 164/70 H Pulse Oximetry 93 93 Intake/Output Intake/Output: Intake & Output 03/13/19 03/14/19 03/15/19 03/16/19 23:59 23:59 23:59 23:59 Intake Total 1180 1020 480 Balance 1180 1020 480 Meds/Results Medications: Active Medications Generic Name Dose Route Start Last Admin Trade Name Freq PRN Reason Stop Dose Admin Aspirin 162 mg 02/26/19 09:00 03/16/19 09:21 Aspirin Ec PO 162 mg DAILY JEFF Administration Atenolol 50 mg 02/25/19 17:00 03/16/19 09:21 Tenormin PO 50 mg BID JEFF Administration Dextrose 12.5 gm 02/25/19 17:23 Dextrose 50% Syringe IV PUSH PRN PRN Hypoglycemia Protocol Ezetimibe 10 mg 02/26/19 09:00 03/16/19 09:21 Zetia PO 10 mg DAILY JEFF Administration Ergocalciferol 50,000 unit 03/12/19 09:00 03/12/19 15:17 Drisdol PO 50,000 unit Mo@0900 JEFF Administration Escitalopram Oxalate 5 mg 03/04/19 13:50 03/16/19 09:22 Lexapro PO 5 mg QAM JEFF Administration Glucagon 1 mg 02/25/19 17:23 Glucagon For Inj IM PRN PRN Hypoglycemia Protocol Glucose 15 gm 02/25/19 17:23 Glutose 15 PO PRN PRN Hypoglycemia Protocol Dextrose 1,000 mls @ 100 mls/hr 02/25/19 17:23 Dextrose 5% 1,000 Ml IVPB PRN PRN Hypoglycemia Protocol Insu
[2019-03-16 12:13] LABS: Glucose Point of Care 188 (65-105)
[2019-03-16 15:25] VITALS: BP 150/57; PULSE 59; RESP 16; O2SAT 94
[2019-03-16 17:21] LABS: Glucose Point of Care 124 (65-105)
[2019-03-16 17:34] VITALS: PULSE 96
[2019-03-16 22:00] VITALS: BP 192/79; PULSE 60; RESP 16; TEMP 36.1; O2SAT 94
[2019-03-16 22:19] LABS: Glucose Point of Care 118 (65-105)
[2019-03-17 06:00] VITALS: BP 150/94; PULSE 60; RESP 16; TEMP 36.2; O2SAT 95
[2019-03-17 06:40] LABS: Glucose Point of Care 124 (65-105)
[2019-03-17] MEDS: ESCITALOPRAM OXALATE 5 MG TABLET PO (09:12)
[2019-03-17] MEDS: EZETIMIBE 10 MG TABLET PO (09:12)
[2019-03-17] MEDS: atenoloL 50 MG TABLET PO ×2 (09:12→18:02)
[2019-03-17] MEDS: ASPIRIN 81 MG ENTERIC TABLET 162 MG PO (09:12)
[2019-03-17] MEDS: lisinopriL 20 MG TABLET 40 MG PO (09:12)
[2019-03-17 11:51] LABS: Glucose Point of Care 179 (65-105)
[2019-03-17 14:00] VITALS: BP 151/64; PULSE 58; RESP 20; TEMP 36.4; O2SAT 95
[2019-03-17 17:25] LABS: Glucose Point of Care 107 (65-105)
[2019-03-17 20:49] LABS: Glucose Point of Care 116 (65-105)
[2019-03-17 22:00] VITALS: BP 150/60; PULSE 59; RESP 16; TEMP 36.2; O2SAT 95
[2019-03-18 06:00] VITALS: BP 160/80; PULSE 55; RESP 18; TEMP 36; O2SAT 99
[2019-03-18 06:55] LABS: Glucose Point of Care 131 (65-105)
[2019-03-18 09:33] VITALS: PULSE 61
[2019-03-18] MEDS: ASPIRIN 81 MG ENTERIC TABLET 162 MG PO (09:33)
[2019-03-18] MEDS: atenoloL 50 MG TABLET PO ×2 (09:33→16:48)
[2019-03-18] MEDS: ESCITALOPRAM OXALATE 5 MG TABLET PO (09:33)
[2019-03-18] MEDS: EZETIMIBE 10 MG TABLET PO (09:34)
[2019-03-18] MEDS: lisinopriL 20 MG TABLET 40 MG PO (09:34)
[2019-03-18 09:35] VITALS: BP 128/59; PULSE 61
[2019-03-18 11:51] LABS: Glucose Point of Care 176 (65-105)
--- NOTE | 2019-03-18 13:51 | WPDNEURORHBP ---
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 which is improving quite a bit she walked today 73 feet and quite happy about it her depression is fairly decently controlled with counseling and the medications there are no new issues particularly no change in the mental status no headache nausea vomiting shortness of breath and no neurological complaints Review of Systems Constitutional: Constitutional: Reports no additional constitutional complaints Eyes: Eyes: Reports no additional eye complaints ENT: Reports system reviewed and no additional complaints, except as documented Cardiovascular: Cardiovascular: Reports no additional cardiovascular complaints Respiratory: Respiratory: Reports no additional respiratory complaints Gastrointestinal: Gastrointestinal: Reports no additional gastrointestinal complaints Genitourinary: Genitourinary: Reports no additional female genitourinary complaints Musculoskeletal: Musculoskeletal: Reports no additional musculoskeletal complaints Integumentary/Breasts: Skin/Breast: Reports system reviewed and no additional complaints, except as docu Neurologic: Reports system reviewed and no additional complaints, except as documented Psychiatric: Psychiatric: Reports no additional psychiatric complaints Functional Status Ambulation Ability Ability to Ambulate 10 Feet: Minimum Assistance X 1 Ability to Ambulate 50 Feet With 2 Turns: Minimum Assistance X 1 Ambulation Assistive Devices: Cane, Marty Exam Const: General: comfortable and no acute distress HENMT: General nose exam: Normal nares present Mouth: Yes moist mucous membranes Eyes: General: appearance normal, both eyes and all related structures Neck: Neck: supple and no JVD Resp: Effort & Inspection: normal respiratory effort Auscultation: clear to auscultation bilaterally Cardio: Rate: regular rate Rhythm: regular rhythm GI: GI Palp: Yes Soft to palpation Auscultation: normal bowel sounds Skin: General skin exam: normal color and no rashes or lesions noted Neuro: Other: mental status is normal speech and language functions are normal flattening of the left-sided of the face is improving likewise the more weakness on the left side is improving she walked 73 feet today and quite happy about it Extrem: General: normal to inspection Objective Data Vital Signs Vital Signs: Vital Signs - 24 hr 03/17/19 14:00 03/17/19 22:00 03/18/19 06:00 Temperature 36.4 C 36.2 C L 36.0 C L Pulse Rate 58 L 59 L 55 L Respiratory Rate 20 16 18 Blood Pressure 151/64 H 150/60 H 160/80 H Pulse Oximetry 95 95 99 03/18/19 09:33 03/18/19 09:35 Temperature Pulse Rate 61 61 Respiratory Rate Blood Pressure 128/59 L Pulse Oximetry Intake/Output Intake/Output: Intake & Output 03/15/19 03/16/19 03/17/19 03/18/19 23:59 23:59 23:59 23:59 Intake Total 510 728 3508 420 Balance 328 710 6479 420 Meds/Results Medications: Active Medications Generic Name Dose Route Start Last Admin Trade Name Freq PRN Reason Stop Dose Admin Aspirin 162 mg 02/26/19 09:00 03/18/19 09:33 Aspirin Ec PO 162 mg DAILY JEFF Administration Atenolol 50 mg 02/25/19 17:00 03/18/19 09:33 Tenormin PO 50 mg BID JEFF Administration Dextrose 12.5 gm 02/25/19 17:23 Dextrose 50% Syringe IV PUSH PRN PRN Hypoglycemia Protocol Ezetimibe 10 mg 02/26/19 09:00 03/18/19 09:34 Zetia PO 10 mg DAILY JEFF Administration Ergocalciferol 50,000 unit 03/12/19 09:00 03/12/19 15:17 Drisdol PO 50,000 unit Mo@0900 JEFF Administration Escitalopram Oxalate 5 mg 03/04/19 13:50 03/18/19 09:33 Lexapro PO 5 mg QAM JEFF Administration Glucagon 1 mg 02/25/19 17:23 Glucagon For Inj IM PRN PRN Hypoglycemia Protocol Glucose 15 gm 02/25/19 17:23 Glutose 15 PO PRN PRN Hypoglycem
[2019-03-18 14:00] VITALS: BP 152/67; PULSE 58; RESP 16; TEMP 36.2; O2SAT 95
[2019-03-18 16:48] VITALS: PULSE 72
[2019-03-18 17:43] LABS: Glucose Point of Care 109 (65-105)
[2019-03-18 21:08] VITALS: BP 171/67; PULSE 53; RESP 20; TEMP 36.1; O2SAT 93
[2019-03-18 21:28] LABS: Glucose Point of Care 110 (65-105)
[2019-03-19 05:04] LABS: Basophils Absolute Auto 0.1 K/mm3 (0.0-0.1); Basophils Percent Auto 0.7 % (0.2-1.2); Eosinophils Absolute Auto 0.3 K/mm3 (0-0.3); Eosinophils Percent Auto 3.3 % (0-4.4); Hematocrit 39.9 % (37.0-47.0); Hemoglobin 13.2 g/dL (12.0-15.0); Immature Granulocyte Absolute 0.06 K/mm3 (0.00-0.031); Immature Granulocyte Percent A 0.6 % (0-0.5); Lymphocytes Absolute Auto 2.85 K/mm3 (0.9-3.2); Lymphocytes Percent Auto 28.5 % (18.3-44.2); Mean Corpuscular HGB Conc 33.1 g/dl (32-36); Mean Corpuscular Hemoglobin 29.9 pg (26-34); Mean Corpuscular Volume 90.3 fl (80-100); Mean Platelet Volume 10.5 fl (7.4-10.4); Monocytes Percent Auto 9.7 % (2.6-8.5); Neutrophils Absolute Auto 5.7 K/mm3 (1.3-6.7); Neutrophils Percent Auto 57.2 % (45.5-73.1); Platelet Count Result 333 k/mm3 (150-375); Red Blood Count 4.42 M/mm3 (4.2-5.4); Red Cell Distribution Width 14.2 % (11.5-14.5)
[2019-03-19 05:24] LABS: Blood Urea Nitrogen 14 mg/dL (7-17); Calcium 9.3 mg/dL (8.4-10.2); Carbon Dioxide 26 mmol/L (22-30); Chloride 103 mmol/L (98-107); Estimated CRCL calculation 46 ml/min; Estimated Glomerular Filt Rate > 60; Glucose 125 mg/dL (65-105); Sodium 139 mmol/L (137-145)
[2019-03-19 06:00] VITALS: BP 181/70; PULSE 52; RESP 20; TEMP 36.1; O2SAT 96
[2019-03-19 07:06] LABS: Glucose Point of Care 131 (65-105)
[2019-03-19 09:47] VITALS: PULSE 52
[2019-03-19] MEDS: EZETIMIBE 10 MG TABLET PO (09:47)
[2019-03-19] MEDS: ESCITALOPRAM OXALATE 5 MG TABLET PO (09:47)
[2019-03-19] MEDS: lisinopriL 20 MG TABLET 40 MG PO (09:47)
[2019-03-19] MEDS: ERGOCALCIFEROL 50,000 UNIT CAPSULE 50000 UNITS PO (09:47)
[2019-03-19] MEDS: ASPIRIN 81 MG ENTERIC TABLET 162 MG PO (09:47)
[2019-03-19] MEDS: atenoloL 50 MG TABLET PO ×2 (09:47→18:11)
[2019-03-19 12:27] LABS: Glucose Point of Care 143 (65-105)
[2019-03-19 14:00] VITALS: BP 128/80; PULSE 63; RESP 17; TEMP 36.6; O2SAT 96
[2019-03-19 17:25] LABS: Glucose Point of Care 117 (65-105)
[2019-03-19 18:11] VITALS: PULSE 63
[2019-03-19] MEDS: INSULIN GLARGINE (*BKC) 100 UNITS/ML 6 UNITS SUB-Q (21:03)
[2019-03-19 21:30] LABS: Glucose Point of Care 121 (65-105)
[2019-03-19 22:00] VITALS: BP 163/76; PULSE 55; RESP 18; TEMP 36.3; O2SAT 94
[2019-03-20 06:00] VITALS: BP 116/78; PULSE 56; RESP 18; TEMP 36.6; O2SAT 96
[2019-03-20 07:00] LABS: Glucose Point of Care 130 (65-105)
[2019-03-20 08:02] VITALS: PULSE 56
[2019-03-20] MEDS: ASPIRIN 81 MG ENTERIC TABLET 162 MG PO (08:02)
[2019-03-20] MEDS: EZETIMIBE 10 MG TABLET PO (08:02)
[2019-03-20] MEDS: ESCITALOPRAM OXALATE 5 MG TABLET PO (08:02)
[2019-03-20] MEDS: atenoloL 50 MG TABLET PO (08:02)
[2019-03-20] MEDS: lisinopriL 20 MG TABLET 40 MG PO (08:03)
--- NOTE | 2019-03-20 11:36 | WPDNEURORHBP ---
Subjective Date/time seen: 03/20/19 11:36 Interval history: Patient is here for stroke and she has done remarkably well and going to be discharged to shelter facility because of the social situation as for as the goals are concerned that have been achieved she denies any particular complaints particularly no headache nausea vomiting chest pain or shortness of breath Review of Systems Constitutional: Constitutional: Reports no additional constitutional complaints Eyes: Eyes: Reports no additional eye complaints ENT: Reports system reviewed and no additional complaints, except as documented Cardiovascular: Cardiovascular: Reports no additional cardiovascular complaints Respiratory: Respiratory: Reports no additional respiratory complaints Gastrointestinal: Gastrointestinal: Reports no additional gastrointestinal complaints Genitourinary: Genitourinary: Reports no additional female genitourinary complaints Musculoskeletal: Musculoskeletal: Reports no additional musculoskeletal complaints Integumentary/Breasts: Skin/Breast: Reports system reviewed and no additional complaints, except as docu Neurologic: Reports system reviewed and no additional complaints, except as documented Psychiatric: Psychiatric: Reports no additional psychiatric complaints Functional Status Ambulation Ability Ability to Ambulate 10 Feet: Minimum Assistance X 1 Ability to Ambulate 50 Feet With 2 Turns: Minimum Assistance X 1 Ambulation Assistive Devices: Cane, Marty Exam Const: General: comfortable and no acute distress HENMT: General nose exam: Normal nares present Mouth: Yes moist mucous membranes Eyes: General: appearance normal, both eyes and all related structures Neck: Neck: supple and no JVD Resp: Effort & Inspection: normal respiratory effort Auscultation: clear to auscultation bilaterally Cardio: Rate: regular rate Rhythm: regular rhythm GI: GI Palp: Yes Soft to palpation Auscultation: normal bowel sounds Skin: General skin exam: normal color and no rashes or lesions noted Neuro: Other: significantly improved hemiparesis please refer to the functionally independent measures at the time of discharge in the final discharge summary Extrem: General: normal to inspection Objective Data Vital Signs Vital Signs: Vital Signs - 24 hr 03/19/19 14:00 03/19/19 18:11 03/19/19 22:00 Temperature 36.6 C 36.3 C L Pulse Rate 63 63 55 L Respiratory Rate 17 18 Blood Pressure 128/80 163/76 H Pulse Oximetry 96 94 03/20/19 06:00 03/20/19 08:02 Temperature 36.6 C Pulse Rate 56 L 56 L Respiratory Rate 18 Blood Pressure 116/78 Pulse Oximetry 96 Intake/Output Intake/Output: Intake & Output 03/17/19 03/18/19 03/19/19 03/20/19 23:59 23:59 23:59 23:59 Intake Total 1200 900 730 350 Balance 1200 900 730 350 Meds/Results Medications: Active Medications Generic Name Dose Route Start Last Admin Trade Name Freq PRN Reason Stop Dose Admin Aspirin 162 mg 02/26/19 09:00 03/20/19 08:02 Aspirin Ec PO 162 mg DAILY JEFF Administration Atenolol 50 mg 02/25/19 17:00 03/20/19 08:02 Tenormin PO 50 mg BID JEFF Administration Dextrose 12.5 gm 02/25/19 17:23 Dextrose 50% Syringe IV PUSH PRN PRN Hypoglycemia Protocol Ezetimibe 10 mg 02/26/19 09:00 03/20/19 08:02 Zetia PO 10 mg DAILY JEFF Administration Ergocalciferol 50,000 unit 03/12/19 09:00 03/19/19 09:47 Drisdol PO 50,000 unit Mo@0900 JEFF Administration Escitalopram Oxalate 5 mg 03/04/19 13:50 03/20/19 08:02 Lexapro PO 5 mg QAM JEFF Administration Glucagon 1 mg 02/25/19 17:23 Glucagon For Inj IM PRN PRN Hypoglycemia Protocol Glucose 15 gm 02/25/19 17:23 Glutose 15 PO PRN PRN Hypoglycemia Protocol Dextrose 1,000 mls @ 100 mls/hr 02/25/19 17:23 Dextrose 5% 1,000 Ml IVPB PRN PRN Hypoglycemia Protocol Insulin Aspart 3 -
[2019-03-20 12:07] LABS: Glucose Point of Care 148 (65-105)
--- NOTE | 2019-03-24 15:16 | PM.DS ---
DS: Diagnosis Admitting Diagnosis Admitting Diagnosis: Cerebral infarction due to unspecified occlusion or stenosis of unspecified cerebral artery Discharge Diagnosis (1) Depression: Code(s): F32.9 - Major depressive disorder, single episode, unspecified Status: Acute (2) Left hemiparesis: Code(s): G81.94 - Hemiplegia, unspecified affecting left nondominant side Status: Acute (3) DVT prophylaxis: Code(s): Z29.9 - Encounter for prophylactic measures, unspecified Status: Acute (4) UTI (urinary tract infection): Code(s): N39.0 - Urinary tract infection, site not specified Status: Acute (5) HLD (hyperlipidemia): Code(s): E78.5 - Hyperlipidemia, unspecified Status: Chronic (6) Acute CVA (cerebrovascular accident): Code(s): I63.9 - Cerebral infarction, unspecified Status: Acute (7) Hypertension: Code(s): I10 - Essential (primary) hypertension Status: Acute (8) Diabetes: Code(s): E11.9 - Type 2 diabetes mellitus without complications Status: Acute DS: Summary Hospital Course Reason for hospitalization: this 79-year-old right-handed woman was admitted because of stroke of the right lentiform nucleus with left-sided hemiparesis along with the history of hypertension and diabetes the details are available from the history and physical examination by Dr. Peacock Hospital Course: patient's hospital course was complicated by the urinary tract infection which was treated and she did did fairly well At the time of discharge the functional independent measure as follows eating independent oral hygiene independent toileting partial assistance bearing partial assistance of her body dressing partial assistance well by dressing partial assistance foot fair partial assistance rolling in bed minimum assist sitting to lying partial assistance lying to sitting partial assistance sit to stand partial assistance chair transfers partial assistance per the transverse partial stents car transfers partial assistance walking 10 feet minimum assistance walking 50 feet with to torso partial assistance walking 150 feet Ancef to perform walking 10 feet and even surfaces minimum assist car were set up minimum assistance 4 steps partial systems 12 steps Ancef to perform became optic partial assistance wheelchair 50 feet partial assistance wheelchair 150 feet partial assistance Patient was sent to custodial facility for 20 days until assisted living is arranged no falls were Status at Discharge Cognitive/behavioral status at discharge: much better and improved Time Spent with Patient Time attestation: Total time spent providing and/or coordinating discharge services: Exam Const: General: comfortable and no acute distress Limitations: physical limitations HENMT: General nose exam: Normal nares present Mouth: Yes dry mucous membranes Eyes: General: appearance normal, both eyes and all related structures Neck: Neck: supple and no JVD Resp: Effort & Inspection: normal respiratory effort Auscultation: clear to auscultation bilaterally Cardio: Rate: regular rate Rhythm: regular rhythm GI: GI Palp: Yes Soft to palpation Auscultation: normal bowel sounds : External Female Exam: normal external appearance Skin: General skin exam: normal color and no rashes or lesions noted Neuro: Other: much improved neurological status particularly the left-sided weakness Extrem: General: normal to inspection DS: Data Data Completed and Pending Completed studies during hospitalization: [place] [address] hemoglobin 13.2 hematocrit of 39.9 and platelet from T under 33,000 patient did have UTI which was treated with the antibiotics she had E coli and group B Streptococcus not enterococcus Discharge Plan Discharge Attending physician on discharge: Fidel Virk Discharging Clinician: Fidel Virk Anticipated Discharge Date/Time: 03/20/19 11:39
== END 2019-03-20 13:30 | DRG 57 ==
PROVIDERS: Admitting Provider Psychiatry & Neurology Neurology; Visit Provider Psychiatry & Neurology Neurology
DX: I69.354 Hemiplegia and hemiparesis following cerebral infarction affecting left non-dominant side (principal); N39.0 Urinary tract infection, site not specified; I69.322 Dysarthria following cerebral infarction; I69.392 Facial weakness following cerebral infarction; B96.20 Unspecified Escherichia coli [E. coli] as the cause of diseases classified elsewhere; E78.5 Hyperlipidemia, unspecified; E11.65 Type 2 diabetes mellitus with hyperglycemia; F32.9 Major depressive disorder, single episode, unspecified; G93.89 Other specified disorders of brain; I25.2 Old myocardial infarction; I10 Essential (primary) hypertension; M19.90 Unspecified osteoarthritis, unspecified site; R32 Unspecified urinary incontinence; R29.6 Repeated falls; Z95.1 Presence of aortocoronary bypass graft; Z79.4 Long term (current) use of insulin; Z87.891 Personal history of nicotine dependence; Z79.82 Long term (current) use of aspirin
CPT/HCPCS: 36415; 80048; 80061; 85025; 92522; 97014; 97110; 97112; 97116; 97150; 97162; 97165; 97530; 97535; 97542; A9270; G0283; J1815

== ENCOUNTER 2019-09-17 20:12 | Observation (INO) | payer MEDICARE, OTHER, SELFPAY ==
--- NOTE | ~2019-09-17 | XR_ITS ---
EXAMINATION: XR chest 1V portable EXAM DATE: 09/17/2019 22:08 INDICATION: Leukocytosis. TECHNIQUE: Portable AP frontal chest x-ray was obtained. Comparison is made to prior examination from 02/22/2019. FINDINGS: The lungs are clear. There are no pleural effusions. Sternotomy wires are present without findings to suggest sternal dehiscence. Cardiomediastinal silhouette is normal. There is no pneumot horax suspected. The bones and soft tissues are unremarkable. There are cholecystectomy clips. Acc ounting for differences in technique, there is no significant interval change. IMPRESSION: No acute cardiopulmonary findings. Reviewed, dictated and finalized at location A.
--- NOTE | ~2019-09-17 | CT_ITS ---
EXAMINATION: CT brain wo con EXAM DATE: 09/17/2019 20:36 INDICATION: Fall, history of left-sided weakness from past stroke. TECHNIQUE: Spiral CT of the head was performed without contrast. Axial, coronal and sagittal images were reviewed. The dose-length product (DLP) for this examination was 605.33 mGy-cm. The exposure w as tailored according to patient size, and iterative reconstruction (ASIR) was used as additional dos e reduction technique. Comparison is made to prior examination from 02/22/2019. FINDINGS: Small old right periventricular infarction. Small old left occipital lobe infarction. Punct ate old bilateral basal ganglia lacunar infarctions. There is no acute intraparenchymal hemorrhage. No evidence of intraparenchymal brain mass lesion. No evidence of acute infarction. Please note vee t initial head CT has limited sensitivity for small or acute infarctions. There is moderate to severe periventricular and subcortical hypodensity, nonspecific but probably related to small vessel ischem ic disease. There is moderate prominence of the sulci and ventricles related to cerebral atrophy. There is intracranial carotid arteriosclerosis. There are no extra-axial collections. There is no mass effect or midline shift. Patient has had bilateral ocular lens surgery. Soft tissue is unremar kable. The visualized sinuses and mastoid air cells are well aerated. IMPRESSION: 1. No acute intracranial findings. 2. Chronic age related findings. 3. Old small infarctions. Reviewed, dictated and finalized at location A.
--- NOTE | ~2019-09-17 | XR_ITS ---
EXAMINATION: XR hand RT min 3V EXAM DATE: 09/17/2019 20:55 INDICATION: Initial encounter following injury, with pain of the right 1st finger. TECHNIQUE: Right hand frontal, lateral and oblique projections obtained and reviewed. There is no pr ior study for comparison. FINDINGS: Right metacarpal bones are unremarkable. There are no acute right 1st finger fractures or dislocations identified. There is no subcutaneous gas. The soft tissue is unremarkable. There are no radiopaque foreign bodies. IMPRESSION: 1. XR hand RT min 3V exam without acute osseous findings. Reviewed, dictated and finalized at location A.
--- NOTE | ~2019-09-17 | XR_ITS ---
EXAMINATION: XR shoulder LT min 2V EXAM DATE: 09/17/2019 20:55 INDICATION: Initial encounter following injury, with pain of the left shoulder. TECHNIQUE: The following left shoulder projections obtained: frontal projection with internal rotatio n, frontal projection with external rotation, Grashey, and scapular Y view (4+ views). There is no p rior study for comparison. FINDINGS: Acute closed posttraumatic minimally displaced fracture of the left humeral neck. No syl l dislocation. No other fracture identified. IMPRESSION: Acute left humeral neck fracture Reviewed, dictated and finalized at location A.
[2019-09-17 20:12] VITALS: PULSE 70; RESP 19; TEMP 36.5; O2SAT 98
--- NOTE | 2019-09-17 20:20 | ED.FALL ---
HPI - Fall General Chief Complaint: Fall Stated Complaint: fall, eye lac History of Present Illness HPI Narrative: History limited by poor historian She had a fall earlier in the day. Unclear how she fell. She hit the left side of her head. She also has pain in the left shoulder and right thumb. She reports multiple recent falls. She was not able to provide any details of these falls. She denies any other symptoms at this time. Related Data Home Medications Medication Instructions Recorded Confirmed aspirin 162.5 mg capsule,extended 162.5 mg PO DAILY 12/18/18 09/18/19 release 24 hr atenolol 25 mg tablet 50 mg PO BID 12/18/18 09/18/19 Januvia 100 mg PO DAILY 02/22/19 09/18/19 ezetimibe 10 mg PO DAILY 02/22/19 09/18/19 Allergies Allergy/AdvReac Type Severity Reaction Status Date / Time metformin Allergy Unknown Unknown Verified 09/17/19 23:03 Qiwvbrw-Fht-Tza Reductase Allergy Unknown Unknown Verified 09/17/19 23:03 Inhibitor Review of Systems Review of Systems: All systems reviewed & are unremarkable except as noted in HPI and below Constitutional: Constitutional: Denies fever(s) Cardiovascular: Cardiovascular: Denies chest pain Respiratory: Respiratory: Denies dyspnea Gastrointestinal: Gastrointestinal: Denies nausea Genitourinary: Genitourinary: Denies dysuria Musculoskeletal: Musculoskeletal: Denies back pain Neurologic: Denies dizziness [facility] Past Medical History Medical History (Updated 09/18/19 @ 03:50 by Shakeel Rebollar MD) Arm fracture, left Arthritis Cataracts, bilateral Diabetes HLD (hyperlipidemia) Hypertension Myocardial infarction Shingles Surgical History Surgical History (Updated 02/22/19 @ 23:59 by Queenie Smyth NP) H/O cataract extraction bilaterally H/O colectomy due to diverticular bleed History of cardiac catheterization History of intestinal surgery Hx of CABG 4 vessels Hx of cholecystectomy Family History Family History (Updated 09/18/19 @ 01:09 by Aixa Palacios RN) Father Cerebrovascular accident Mother Colon cancer Sibling Esophageal cancer Alzheimers disease Social History Social History (Updated 02/23/19 @ 00:01 by Queenie Smyth NP) Social History: the patient stated that she is single and has never . She requested to be a DNR. 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 She quit smoking when she had her heart attack in 1997. She smoked for about 30 years Smoking packs per day: 1 Smoking cigarettes per day: 20.0 Years smoked: 30 Smoking pack-years: 30.00 Smoking status: Former smoker Tobacco type: cigarettes Second hand tobacco smoke exposure: No Smoking end date: 03/03/97 Alcohol intake: never Substance use: never Substance use type: does not use Gender identity (if verbalized by the patient): Female Spiritual care concerns: No Agree to blood products: Yes Course Vital Signs Vital signs: Vital Signs Temperature 36.5 C 09/17/19 20:12 Pulse Rate 70 09/17/19 20:12 Respiratory Rate 19 09/17/19 20:12 Pulse Oximetry 98 09/17/19 20:12 Temperature 36.5 C 09/18/19 00:15 Pulse Rate 68 09/18/19 00:15 Respiratory Rate 16 09/18/19 00:15 Blood Pressure 158/73 H 09/18/19 00:15 Pulse Oximetry 94 09/18/19 00:15 MDM - Fall MDM Narrative Medical decision making narrative: She is mildly confused. She reports multiple falls, although history is unrelieable. She has UA concerning for infection. Very elevated BP. Proximal humerus fracture, which will require immobilization. I will admit for observation Medical Records Attestation: I reviewed the patient's medical records. Lab Data Attestation: I reviewed the patient's lab results. Result diagrams: 09/17/19 21:16 09/17/19 21:16 Labs: Lab Results 09/17/19 09/17/19 09/17/19 Range/Units 21:16 21:16 22:18 WBC 20.1 H (4.5-10.0) K/mm3 RB
[2019-09-17 20:30] VITALS: BP 225/115; PULSE 64; RESP 19; O2SAT 95
--- NOTE | 2019-09-17 21:02 | ECG_ITS ---
Measurements Intervals [place] Rate: 65 P: 48 DE: 145 QRS: 47 QRSD: 84 T: 78 QT: 463 QTc: 484 Interpretive Statements SINUS RHYTHM POSSIBLE LEFT ATRIAL ENLARGEMENT LEFT VENTRICULAR HYPERTROPHY AND ST-T CHANGE ST-T WAVE ABNORMALITY IN ANTERIOR LEADS- CONSIDER ISCHEMIA ABNORMAL ECG Electronically Signed On 09-18-2019 7:13:51 CDT by Cruzito Bourgeois D.O.
[2019-09-17] MEDS: hydrALAZINE HCL 20 MG/ML VIAL 10 MG IV PUSH (21:13)
[2019-09-17 21:21] LABS: Basophils Absolute Auto 0.1 K/mm3 (0.0-0.1); Basophils Percent Auto 0.7 % (0.2-1.2); Eosinophils Absolute Auto 0.2 K/mm3 (0-0.3); Eosinophils Percent Auto 0.8 % (0-4.4); Hematocrit 46.8 % (37.0-47.0); Hemoglobin 15.6 g/dL (12.0-15.0); Immature Granulocyte Absolute 0.17 K/mm3 (0.00-0.031); Immature Granulocyte Percent A 0.8 % (0-0.5); Lymphocytes Absolute Auto 2.06 K/mm3 (0.9-3.2); Lymphocytes Percent Auto 10.2 % (18.3-44.2); Mean Corpuscular HGB Conc 33.3 g/dl (32-36); Mean Corpuscular Hemoglobin 29.8 pg (26-34); Mean Corpuscular Volume 89.5 fl (80-100); Monocytes Percent Auto 5.1 % (2.6-8.5); Neutrophils Absolute Auto 16.6 K/mm3 (1.3-6.7); Neutrophils Percent Auto 82.4 % (45.5-73.1); Platelet Count Result 336 k/mm3 (150-375); Red Blood Count 5.23 M/mm3 (4.2-5.4); Red Cell Distribution Width 14.1 % (11.5-14.5); White Blood Count 20.1 K/mm3 (4.5-10.0)
[2019-09-17 21:26] VITALS: BP 172/73; PULSE 66; RESP 18; O2SAT 94
[2019-09-17 21:34] LABS: Anion Gap 10 mmol/L (8-16); Blood Urea Nitrogen 16 mg/dL (7-17); Calcium 9.2 mg/dL (8.4-10.2); Carbon Dioxide 25 mmol/L (22-30); Chloride 101 mmol/L (98-107); Estimated Glomerular Filt Rate > 60; Glucose 208 mg/dL (65-105); Potassium 3.8 mmol/L (3.4-5.0); Sodium 136 mmol/L (137-145)
[2019-09-17 22:14] VITALS: BP 140/64; PULSE 74; RESP 19; O2SAT 100
[2019-09-17 22:33] LABS: Add Urine Microscopic? YES; Appearance Urine Clear (Clear); Bacteria Urine Trace /hpf; Bilirubin Urine Negative (Negative); Blood Urine Negative (Negative); Color Urine Straw (Yellow); Glucose Urine UA 2+ mg/dL (Negative); Ketones Urine Negative (Negative); Leukocyte Esterase Ur Trace LEU/UL (Negative); Mucus Urine Rare /lpf; Nitrate Urine Negative (Negative); Protein Urine 2+ mg/dL (Negative); Specific Grav Ur 1.011 (1.001-1.035); Squamous Epithelial Cell Urine Moderate /hpf (Few); Urobilinogen Urine Negative mg/dL (<2.0); WBC Urine 16-20 /hpf
[2019-09-17 22:58] VITALS: BP 166/64; PULSE 63; RESP 17; O2SAT 95
[2019-09-17 23:49] VITALS: BP 133/64; PULSE 62; RESP 18; O2SAT 98
[2019-09-18] VITALS (13 sets, daily range): BP systolic 135–205; BP diastolic 63–89; PULSE 60–92; RESP 16–20; TEMP 36.5–37.1; O2SAT 60–95; BMI 18.8
--- NOTE | 2019-09-18 00:15 | ADMGEN ---
This patient, Marily St, was admitted to [facility] Room [facility]-01. Patient/family oriented to hospital policies and general routines including ID bracelet, bed and alarms, visiting hours, pain management, procedures, bathroom and other care routines, personal items, smoking policy, room service/diet, and visiting hours. Valuables list has been completed. Information on how to activate the Rapid Response Team has been discussed. Patient/Family are encouraged to report perceived risks to care and to ask questions if they do not understand what they are told or what they should do.
[2019-09-18 08:54] LABS: Basophils Absolute Auto 0.1 K/mm3 (0.0-0.1); Basophils Percent Auto 0.6 % (0.2-1.2); Eosinophils Absolute Auto 0.1 K/mm3 (0-0.3); Eosinophils Percent Auto 0.4 % (0-4.4); Hematocrit 42.4 % (37.0-47.0); Hemoglobin 14.1 g/dL (12.0-15.0); Immature Granulocyte Absolute 0.07 K/mm3 (0.00-0.031); Immature Granulocyte Percent A 0.4 % (0-0.5); Lymphocytes Absolute Auto 2.19 K/mm3 (0.9-3.2); Lymphocytes Percent Auto 13.7 % (18.3-44.2); Mean Corpuscular HGB Conc 33.3 g/dl (32-36); Mean Corpuscular Hemoglobin 29.6 pg (26-34); Mean Corpuscular Volume 88.9 fl (80-100); Mean Platelet Volume 10.7 fl (7.4-10.4); Monocytes Absolute Auto 1.3 K/mm3 (0.1-0.6); Monocytes Percent Auto 8.2 % (2.6-8.5); Neutrophils Absolute Auto 12.2 K/mm3 (1.3-6.7); Neutrophils Percent Auto 76.7 % (45.5-73.1); Platelet Count Result 277 k/mm3 (150-375); Red Blood Count 4.77 M/mm3 (4.2-5.4); Red Cell Distribution Width 14.1 % (11.5-14.5); White Blood Count 15.9 K/mm3 (4.5-10.0)
[2019-09-18 09:09] LABS: Anion Gap 6 mmol/L (8-16); Blood Urea Nitrogen 15 mg/dL (7-17); Carbon Dioxide 28 mmol/L (22-30); Chloride 103 mmol/L (98-107); Estimated CRCL calculation 46 ml/min; Estimated Glomerular Filt Rate > 60; Glucose 163 mg/dL (65-105); Potassium 3.5 mmol/L (3.4-5.0); Sodium 137 mmol/L (137-145)
[2019-09-18 09:29] LABS: Hemoglobin A1C 5.7 % (<5.7)
--- NOTE | 2019-09-18 09:38 | PM.CNOR ---
Assessment and Plan Assessment and plan (1) Fracture of proximal humerus: Qualifiers: Encounter type: initial encounter Fracture morphology: other fracture Fracture type: closed Laterality: left Fracture alignment: nondisplaced Qualified Code(s): S42.295A - Other nondisplaced fracture of upper end of left humerus, initial encounter for closed fracture Code(s): S42.209A - Unspecified fracture of upper end of unspecified humerus, initial encounter for closed fracture Status: Acute Assessment and Plan: New patient evaluation status post injury. The history, physical exam and radiographs reviewed with the patient. Type of fracture discussed in detail. left proximal humerus fracture with minimal displacement. Treatment options including operative and non operative treatment reviewed . Risks, benefits and alternatives of each treatment discussed in detail . The patient has declined surgical treatment. Risks of treatment decision discussed in detail. Potential problems with displacement of the fracture, loss of alignment, nonunion, malunion and dysfunction discussed in detail. The patient's questions were answered. They verbalized understanding and agreement. Conservative treatment with immobilization, ice. Fit with shoulder immobilizer in the emergency room. Continue with immobilizer. May adjust p.r.n. and for hygiene. Discussed treatment plan with the patient. Will need follow-up radiographs in approximately 3 weeks. History of Present Illness HPI Consult date: 09/18/19 Requesting physician: Shakeel Rebollar MD Consult reason: fracture ( left proximal humerus) Chief complaint: HTN, Multiple falls, humerus fracture,leukocytosis Narrative: 79-year-old female who is status post stroke with left-sided hemiparesis and multiple falls. Recent fall with left-sided head injury, left shoulder and right hand injury. Brought to the emergency room where radiographs showed left shoulder fracture. Also with urinary tract infection, admitted for further care. Complains of left shoulder pain and left arm pain. No mobility of the arm secondary to her stroke. She has been in physical therapy where they have improved her lower extremity strength and range of motion. Denies any new deficits. Review of Systems Constitutional: Constitutional: Denies fever(s) Eyes: Eyes: Denies blurry vision ENT: Reports Normal hearing present Cardiovascular: Cardiovascular: Denies chest pain and Denies dyspnea Respiratory: Respiratory: Denies dyspnea and Denies wheezing Gastrointestinal: Gastrointestinal: Denies abdominal pain Genitourinary: Genitourinary: Denies urinary urgency Musculoskeletal: Musculoskeletal: Reports as per HPI and Denies numbness Integumentary/Breasts: Skin/Breast: Denies changing lesions and Denies sores Neurologic: Reports Normal hearing present, Denies behavioral changes, Denies confusion, Reports frequent falls, Denies numbness, Denies convulsions and Reports other ( Stroke with left-sided hemiparesis) Psychiatric: Psychiatric: Denies behavioral changes, Denies confusion and Denies hallucinations Endocrine: Endocrine: Denies heat intolerance Hematologic/Lymphatic: Hematologic/Lymphatic: Denies easy bleeding Allergic/Immunologic: Allergic/Immunologic: Denies wheezing PMFSH Past Medical History Medical History Arm fracture, left Arthritis Cataracts, bilateral Diabetes HLD (hyperlipidemia) Hypertension Myocardial infarction Shingles Surgical History Surgical History H/O cataract extraction bilaterally H/O colectomy due to diverticular bleed History of cardiac catheterization History of intestinal surgery Hx of CABG 4 vessels Hx of cholecystectomy Family History Family History Father Cerebrovascular accident M
[2019-09-18] MEDS: atenoloL 50 MG TABLET PO ×2 (09:48→17:43)
[2019-09-18] MEDS: ASPIRIN 81 MG ENTERIC TABLET 162 MG PO (09:48)
[2019-09-18] MEDS: EZETIMIBE 10 MG TABLET PO (09:48)
[2019-09-18] MEDS: lisinopriL 20 MG TABLET 40 MG PO (09:48)
[2019-09-18] MEDS: ESCITALOPRAM OXALATE 5 MG TABLET PO (09:48)
[2019-09-18 10:00] LABS: Glucose Point of Care 150 (65-105)
--- NOTE | 2019-09-18 10:48 | PM.IMHP ---
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 Patient states she has some issues with ambulation due to her left sided deficit, but recently has been doing quite well the past 2 months with PT/OT at [facility]. Unfortunately, she states she lost her balance yesterday and stated she tripped over her feet, pushing a mobile table out of the way, causing her to fall on her left side. She notes hitting her head, but denies any LOC. She denies any associated dizziness, lightheadness, loss of vision, or increased deficits in left arm/leg. She has not had a fall since July. She is unsure many more details about her fall. She notes her pain, at its worse, was 5/10, but notes no pain at all at the moment. She has no other complaints at the moment. She denies any dysuria, hematuria, or cloudy urine. Denies f/c/s, headaches, current dizziness, lightheadedness, changes in v/h, cp/palpitations, sob/cough, current n/v/d/c, abd pain, changes in BMs, calf pain/swelling. While in the ED she was found to have an acute left humeral neck fracture. No other acute findings in right hand xray, or head ct. She was noted to have abnormal UA suggestive of possible UTI and leukocytosis of 20.1k. Review of Systems Review of Systems: All systems reviewed & are unremarkable except as noted in HPI and below PMFSH Past Medical History Medical History (Updated 09/18/19 @ 11:09 by Buck Contreras PA-C) Arm fracture, left Arthritis Cataracts, bilateral CVA (cerebral vascular accident) 02/2019, with residual left sided arm/leg deficits Diabetes HLD (hyperlipidemia) Hypertension Myocardial infarction Shingles Surgical History Surgical History (Updated 09/18/19 @ 11:10 by Buck Contreras PA-C) H/O cataract extraction bilaterally H/O colectomy due to diverticular bleed; patient denies this History of cardiac catheterization History of intestinal surgery Hx of CABG 4 vessels Hx of cholecystectomy Family History Family History Father Cerebrovascular accident Mother Colon cancer Sibling Esophageal cancer Alzheimers disease Social History Social History (Updated 09/18/19 @ 11:13 by Buck Contreras PA-C) Social History: Patient is single and has never . She requested to be a DNR. 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 She quit smoking when she had her heart attack in 1997. She smoked for about 30 years Smoking packs per day: 1 Smoking cigarettes per day: 20.0 Years smoked: 30 Smoking pack-years: 30.00 Smoking status: Former smoker Tobacco type: cigarettes Second hand tobacco smoke exposure: No Smoking end date: 03/03/97 Alcohol intake: never Substance use: never Substance use type: does not use Gender identity (if verbalized by the patient): Female Spiritual care concerns: No Agree to blood products: Yes Meds Home Medications and Allergies Home Medications Medication Instructions Recorded Confirmed Type aspirin 162.5 mg capsule,extended 162.5 mg PO DAILY 12/18/18 09/18/19 History release 24 hr atenolol 25 mg tablet 50 mg PO BID 12/18/18 09/18/19 History Januvia 100 mg PO DAILY 02/22/19 09/18/19 History ezetimibe 10 mg PO DAILY 02/22/19 09/18/19 History lisinopril 40 mg PO DAILY 30 Days #30 tablet 02/25/19 09/18/19 Rx ergocalciferol (vitamin D2) 50,000 unit PO Mo@0900 #0 cap 03/20/19 09/18/19 Rx [Vitamin D2] escitalopram oxalate 5 mg PO QAM #0 tablet 03/20/19 09/18/19 Rx Allergies Allergy/AdvReac Type Severity Reaction
[2019-09-18] MEDS: INSULIN ASPART (*BKC) 100 UNITS/ML SUB-Q (12:46)
[2019-09-18 14:27] LABS: Glucose Point of Care 210 (65-105)
[2019-09-18] MEDS: ACETAMINOPHEN 325 MG TABLET 650 MG PO (16:15)
[2019-09-18 18:06] LABS: Glucose Point of Care 134 (65-105)
[2019-09-18 22:07] LABS: Glucose Point of Care 128 (65-105)
[2019-09-19] VITALS (10 sets, daily range): BP systolic 150–192; BP diastolic 66–102; PULSE 56–67; RESP 16–20; TEMP 36.3–36.9; O2SAT 92–100
[2019-09-19 06:07] LABS: Basophils Absolute Auto 0.1 K/mm3 (0.0-0.1); Basophils Percent Auto 0.8 % (0.2-1.2); Eosinophils Absolute Auto 0.2 K/mm3 (0-0.3); Eosinophils Percent Auto 1.5 % (0-4.4); Hematocrit 44.8 % (37.0-47.0); Immature Granulocyte Absolute 0.06 K/mm3 (0.00-0.031); Immature Granulocyte Percent A 0.4 % (0-0.5); Lymphocytes Absolute Auto 2.63 K/mm3 (0.9-3.2); Lymphocytes Percent Auto 19.5 % (18.3-44.2); Mean Corpuscular HGB Conc 33.5 g/dl (32-36); Mean Corpuscular Hemoglobin 29.8 pg (26-34); Mean Corpuscular Volume 89.1 fl (80-100); Mean Platelet Volume 10.9 fl (7.4-10.4); Monocytes Absolute Auto 1.2 K/mm3 (0.1-0.6); Monocytes Percent Auto 8.7 % (2.6-8.5); Neutrophils Absolute Auto 9.3 K/mm3 (1.3-6.7); Neutrophils Percent Auto 69.1 % (45.5-73.1); Platelet Count Result 282 k/mm3 (150-375); Red Blood Count 5.03 M/mm3 (4.2-5.4); White Blood Count 13.5 K/mm3 (4.5-10.0)
[2019-09-19 06:25] LABS: Anion Gap 7 mmol/L (8-16); Blood Urea Nitrogen 11 mg/dL (7-17); Calcium 8.9 mg/dL (8.4-10.2); Carbon Dioxide 29 mmol/L (22-30); Chloride 103 mmol/L (98-107); Estimated CRCL calculation 54 ml/min; Estimated Glomerular Filt Rate > 60; Glucose 176 mg/dL (65-105); Potassium 3.5 mmol/L (3.4-5.0); Sodium 139 mmol/L (137-145)
[2019-09-19] MEDS: POTASSIUM CHLORIDE 20 MEQ TABLET 40 MEQ PO (08:24)
[2019-09-19] MEDS: ASPIRIN 81 MG ENTERIC TABLET 162 MG PO (08:25)
[2019-09-19] MEDS: atenoloL 50 MG TABLET PO ×2 (08:25→17:05)
[2019-09-19] MEDS: EZETIMIBE 10 MG TABLET PO (08:25)
[2019-09-19] MEDS: lisinopriL 20 MG TABLET 40 MG PO (08:26)
[2019-09-19] MEDS: ESCITALOPRAM OXALATE 5 MG TABLET PO (08:26)
[2019-09-19 10:27] LABS: Glucose Point of Care 167 (65-105)
[2019-09-19] MEDS: amLODIPine BESYLATE 2.5 MG TABLET PO (10:47)
--- NOTE | 2019-09-19 14:05 | P.PNIM_ITS ---
Progress Note: A&P Assessment and Plan (1) Fracture of proximal humerus: Qualifiers: Encounter type: initial encounter Fracture alignment: nondisplaced Fracture morphology: other fracture Fracture type: closed Laterality: left Qualified Code(s): S42.295A - Other nondisplaced fracture of upper end of left humerus, initial encounter for closed fracture Code(s): S42.209A - Unspecified fracture of upper end of unspecified humerus, initial encounter for closed fracture Status: Acute Assessment and Plan: s/p fall while at [facility]. Ortho consulted from ER and appreciate recommendations. Left arm immobilizer placed by ED. Discussed with CC; patient will be returning back to [facility] after discharge. Pain is well controlled * PT/OT per Orthopedic Surgery * Will need f/u with ortho for further imaging in 3 weeks per Ortho rec * Will do Tylenol PRN for pain; will refrain from narcotics due to fall risk * Continue with immobilizer per Ortho recs * Monitor * Plan to discharge to [facility] once COVID testing is back * Medically stable for discharge (2) Abnormal urinalysis: Code(s): R82.90 - Unspecified abnormal findings in urine Status: Acute Assessment and Plan: UA suggestive of UTI, although patient denies any symptoms. Leukocytosis improved to 13.5k today; possibly reactive 2/2 fall. UCx showed multiple organisms present, each less than 10,000 CFU/mL * Will d/c Rocpehin * Monitor for symptoms (3) CVA (cerebral vascular accident): Code(s): I63.9 - Cerebral infarction, unspecified Status: Acute Assessment and Plan: No acute issues. CT head unremarkable for acute intracranial findings. * Continue home Aspirin * Monitor * Continue PT/OT (4) Left hemiparesis: Code(s): G81.94 - Hemiplegia, unspecified affecting left nondominant side Status: Acute Assessment and Plan: 2/2 above; chronic findings. No acute issues. See above a/p. (5) HLD (hyperlipidemia): Code(s): E78.5 - Hyperlipidemia, unspecified Status: Chronic Assessment and Plan: Continue home medications (6) Hypertension: Code(s): I10 - Essential (primary) hypertension Status: Acute Assessment and Plan: BP labile as high as 225 sys on arrival; possibly secondary to injury. 200s sys last night; improved this morning, but still elevated * Will monitor overnight * Continue home antihypertensives * Low dose amlodipine added; likely will discharge with amlodipine * Monitor * F/u with PCP for further adjustments of medications (7) Diabetes: Code(s): E11.9 - Type 2 diabetes mellitus without complications Status: Acute Assessment and Plan: A1c has significantly improved to 5.7 this morning (9.8 in 02/2019). * Sekou held during hospital stay; continue at discharge * Accuchecks ACHS, hypoglycemia protocol, correctional insulin, diabetic diet (8) Depression: Code(s): F32.9 - Major depressive disorder, single episode, unspecified Status: Acute Assessment and Plan: No acute issues * Continue home medication Subjective Date/time seen: 09/19/19 14:05 Interval history: Patient is a 79 yo F with history of [place] (s/p CABG in 1997), CVA (02/2019) with residual left sided arm/leg d
--- NOTE | 2019-09-19 14:05 | PM.IMPN ---
Progress Note: A&P Assessment and Plan (1) Fracture of proximal humerus: Qualifiers: Encounter type: initial encounter Fracture alignment: nondisplaced Fracture morphology: other fracture Fracture type: closed Laterality: left Qualified Code(s): S42.295A - Other nondisplaced fracture of upper end of left humerus, initial encounter for closed fracture Code(s): S42.209A - Unspecified fracture of upper end of unspecified humerus, initial encounter for closed fracture Status: Acute Assessment and Plan: s/p fall while at [facility]. Ortho consulted from ER and appreciate recommendations. Left arm immobilizer placed by ED. Discussed with CC; patient will be returning back to [facility] after discharge. Pain is well controlled PT/OT per Orthopedic Surgery Will need f/u with ortho for further imaging in 3 weeks per Ortho rec Will do Tylenol PRN for pain; will refrain from narcotics due to fall risk Continue with immobilizer per Ortho recs Monitor Plan to discharge to [facility] once COVID testing is back Medically stable for discharge (2) Abnormal urinalysis: Code(s): R82.90 - Unspecified abnormal findings in urine Status: Acute Assessment and Plan: UA suggestive of UTI, although patient denies any symptoms. Leukocytosis improved to 13.5k today; possibly reactive 2/2 fall. UCx showed multiple organisms present, each less than 10,000 CFU/mL Will d/c Rocpehin Monitor for symptoms (3) CVA (cerebral vascular accident): Code(s): I63.9 - Cerebral infarction, unspecified Status: Acute Assessment and Plan: No acute issues. CT head unremarkable for acute intracranial findings. Continue home Aspirin Monitor Continue PT/OT (4) Left hemiparesis: Code(s): G81.94 - Hemiplegia, unspecified affecting left nondominant side Status: Acute Assessment and Plan: 2/2 above; chronic findings. No acute issues. See above a/p. (5) HLD (hyperlipidemia): Code(s): E78.5 - Hyperlipidemia, unspecified Status: Chronic Assessment and Plan: Continue home medications (6) Hypertension: Code(s): I10 - Essential (primary) hypertension Status: Acute Assessment and Plan: BP labile as high as 225 sys on arrival; possibly secondary to injury. 200s sys last night; improved this morning, but still elevated Will monitor overnight Continue home antihypertensives Low dose amlodipine added; likely will discharge with amlodipine Monitor F/u with PCP for further adjustments of medications (7) Diabetes: Code(s): E11.9 - Type 2 diabetes mellitus without complications Status: Acute Assessment and Plan: A1c has significantly improved to 5.7 this morning (9.8 in 02/2019). 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 Patient states she is feeling well today. No complaints. Working well with therapy. She denies any left arm/shoulder pain at the moment. Denies f/c/s, myalgias/arthralgias, headaches, dizziness, lightheadedness, changes in v/h, cp/palpitations, sob/cough, n/v/d/c, abd pain, changes
[2019-09-19] MEDS: ONDANSETRON HCL ODT 4 MG TABLET PO (17:09)
[2019-09-19 17:58] LABS: Glucose Point of Care 136 (65-105)
[2019-09-19 18:41] LABS: SARS-CoV-2 RNA PCR Negative
[2019-09-20 02:23] LABS: Glucose Point of Care 151 (65-105)
[2019-09-20 06:00] VITALS: BP 191/63; PULSE 57; RESP 16; TEMP 36.5; O2SAT 90
[2019-09-20 06:33] LABS: Basophils Absolute Auto 0.1 K/mm3 (0.0-0.1); Basophils Percent Auto 0.7 % (0.2-1.2); Eosinophils Absolute Auto 0.2 K/mm3 (0-0.3); Eosinophils Percent Auto 1.5 % (0-4.4); Hematocrit 41.1 % (37.0-47.0); Hemoglobin 13.4 g/dL (12.0-15.0); Immature Granulocyte Absolute 0.07 K/mm3 (0.00-0.031); Immature Granulocyte Percent A 0.6 % (0-0.5); Lymphocytes Absolute Auto 3.18 K/mm3 (0.9-3.2); Mean Corpuscular HGB Conc 32.6 g/dl (32-36); Mean Corpuscular Hemoglobin 29.5 pg (26-34); Mean Corpuscular Volume 90.5 fl (80-100); Mean Platelet Volume 10.7 fl (7.4-10.4); Monocytes Absolute Auto 1.4 K/mm3 (0.1-0.6); Monocytes Percent Auto 10.7 % (2.6-8.5); Neutrophils Absolute Auto 7.8 K/mm3 (1.3-6.7); Neutrophils Percent Auto 61.5 % (45.5-73.1); Platelet Count Result 255 k/mm3 (150-375); Red Blood Count 4.54 M/mm3 (4.2-5.4); Red Cell Distribution Width 14.2 % (11.5-14.5); White Blood Count 12.7 K/mm3 (4.5-10.0)
[2019-09-20 07:04] LABS: Anion Gap 5 mmol/L (8-16); Blood Urea Nitrogen 16 mg/dL (7-17); Calcium 8.9 mg/dL (8.4-10.2); Carbon Dioxide 28 mmol/L (22-30); Chloride 105 mmol/L (98-107); Estimated CRCL calculation 46 ml/min; Estimated Glomerular Filt Rate > 60; Glucose 154 mg/dL (65-105); Magnesium 2.1 mg/dL (1.6-2.3); Sodium 138 mmol/L (137-145)
[2019-09-20 08:50] LABS: Glucose Point of Care 148 (65-105)
[2019-09-20] MEDS: ACETAMINOPHEN 325 MG TABLET 650 MG PO (08:53)
[2019-09-20 08:54] VITALS: PULSE 58
[2019-09-20] MEDS: ASPIRIN 81 MG ENTERIC TABLET 162 MG PO (08:54)
[2019-09-20] MEDS: atenoloL 50 MG TABLET PO (08:54)
[2019-09-20] MEDS: amLODIPine BESYLATE 2.5 MG TABLET PO (08:54)
[2019-09-20] MEDS: EZETIMIBE 10 MG TABLET PO (08:54)
[2019-09-20] MEDS: lisinopriL 20 MG TABLET 40 MG PO (08:54)
[2019-09-20] MEDS: ESCITALOPRAM OXALATE 5 MG TABLET PO (08:55)
--- NOTE | 2019-09-20 10:47 | PM.DS ---
DS: Admitting Diagnosis Admitting Diagnosis Admitting Diagnosis: left arm pain DS: Discharge Diagnosis Discharge Diagnosis (1) Fracture of proximal humerus: Qualifiers: Encounter type: initial encounter Fracture alignment: nondisplaced Fracture morphology: other fracture Fracture type: closed Laterality: left Qualified Code(s): S42.295A - Other nondisplaced fracture of upper end of left humerus, initial encounter for closed fracture Code(s): S42.209A - Unspecified fracture of upper end of unspecified humerus, initial encounter for closed fracture Status: Acute Assessment and Plan: s/p fall while at [facility]. Ortho consulted from ER and appreciate recommendations. Left arm immobilizer placed by ED. Discussed with CC; patient will be returning back to [facility] after discharge. Pain is well controlled PT/OT per Orthopedic Surgery Will need f/u with ortho for further imaging in 3 weeks per Ortho rec Will do Tylenol PRN for pain; will refrain from narcotics due to fall risk Continue with immobilizer per Ortho recs d/c to [facility] today (2) Abnormal urinalysis: Code(s): R82.90 - Unspecified abnormal findings in urine Status: Acute Assessment and Plan: UA suggestive of UTI, although patient denies any symptoms. Leukocytosis improved to 13.5k today; possibly reactive 2/2 fall. UCx showed multiple organisms present, each less than 10,000 CFU/mL No antibiotics at this time; patient asymptomatic Monitor for symptoms (3) CVA (cerebral vascular accident): Code(s): I63.9 - Cerebral infarction, unspecified Status: Acute Assessment and Plan: No acute issues. CT head unremarkable for acute intracranial findings. Continue home Aspirin Monitor Continue PT/OT (4) Left hemiparesis: Code(s): G81.94 - Hemiplegia, unspecified affecting left nondominant side Status: Acute Assessment and Plan: 2/2 above; chronic findings. No acute issues. See above a/p. (5) HLD (hyperlipidemia): Code(s): E78.5 - Hyperlipidemia, unspecified Status: Chronic Assessment and Plan: Continue home medications (6) Hypertension: Code(s): I10 - Essential (primary) hypertension Status: Acute Assessment and Plan: BP labile as high as 225 sys on arrival; possibly secondary to injury. 190s sys this morning prior to meds. Continue home antihypertensives Low dose amlodipine added;will discharge with amlodipine with further adjustments per [facility] physician/PCP Monitor F/u with PCP for further adjustments of medications (7) Diabetes: Code(s): E11.9 - Type 2 diabetes mellitus without complications Status: Acute Assessment and Plan: A1c has significantly improved to 5.7 this morning (9.8 in 02/2019). 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 While in the ED, patient was found to have a proximal left humerus fracture evident on xray. REGINA webster
[2019-09-20 14:00] VITALS: BP 150/64; PULSE 62; RESP 18; TEMP 36.7; O2SAT 96
== END 2019-09-20 13:30 ==
LOC: ANHED 22:38 → ANH3MEDSUR 23:42
PROVIDERS: Physician Assistant; Admitting Provider Internal Medicine; Emergency Provider Emergency Medicine; Visit Provider Family Medicine
DX: S42.295A Other nondisplaced fracture of upper end of left humerus, initial encounter for closed fracture (principal); R82.90 Unspecified abnormal findings in urine; E78.5 Hyperlipidemia, unspecified; I10 Essential (primary) hypertension; E11.9 Type 2 diabetes mellitus without complications; F32.9 Major depressive disorder, single episode, unspecified; I69.354 Hemiplegia and hemiparesis following cerebral infarction affecting left non-dominant side; I25.2 Old myocardial infarction; Z79.4 Long term (current) use of insulin; Z20.828 Contact with and (suspected) exposure to other viral communicable diseases
CPT/HCPCS: 36415; 70450; 71045; 73030; 73130; 80048; 81001; 83036; 83735; 85025; 87086; 87088; 87635; 93005; 96365; 96375; 97110; 97116; 97161; 97165; 97530; 99285; A9270; C9803; G0378; J0360; J0696; J1815; U0003

== ENCOUNTER 2020-11-06 02:05 | Inpatient (IN) | payer MEDICARE, OTHER, SELFPAY ==
[2020-11-06] VITALS (7 sets, daily range): BP systolic 148–163; BP diastolic 54–93; PULSE 60–80; RESP 16–20; TEMP 36.7–37.1; O2SAT 90–95; BMI 19.5
--- NOTE | ~2020-11-06 | XR_ITS ---
EXAMINATION: XR hip LT 2V w AP pelvis DATE: 11/06/2020 04:32 INDICATION: Left groin pain post fall TECHNIQUE: Anteroposterior view of the pelvis and anteroposterior and frog-leg lateral views of the l eft hip were obtained. COMPARISON: None. FINDINGS: Anteriorly and laterally impacted subcapital fracture of the left hip. Alignment remains near-anatomi c. No other fractures identified. Bilateral hip joint spaces are relatively preserved. Mild bilateral sacroiliac osteoarthritis. Severe degenerative disc disease at L4-L5. Atherosclerotic aorta. Small c alcified uterine fibroid at the central pelvis. IMPRESSION: 1. Impacted subcapital fracture of the proximal left femur. Reviewed, dictated and finalized at location A.
--- NOTE | ~2020-11-06 | XR_ITS ---
EXAMINATION: [id number]_[id number]_CR DATE: 11/06/2020 04:32 INDICATION: Left rib pain post fall TECHNIQUE: A frontal inspiratory view of the chest and 3 views of the left ribs were obtained. COMPARISON: Chest radiograph dated 07/18/2019 and left shoulder radiographs dated 10/30/2019 FINDINGS: Old anterior left third and fourth rib fractures and old right seventh-10th rib fractures. Age-indete rminate nondisplaced anterior left fifth rib fracture which is not definitively identified on the edgar or studies however given the proximity to the additional old rib fractures is more likely chronic. Ol d healed fracture of the left humeral neck. Elevation of the right hemidiaphragm with mild linear discoid atelectasis at the right lower lung zon e. No pulmonary edema, pleural effusion or pneumothorax. Cardiomediastinal silhouette is within bishnu l limits. Median sternotomy wires and mediastinal surgical clips are seen, likely from prior coronary artery bypass grafting. Cholecystectomy clips in right upper quadrant. IMPRESSION: 1. Several old bilateral rib fractures and age indeterminate anterior left fifth rib fracture which g iven the proximity to old anterior left third and fourth rib fractures is likely chronic but would co rrelate for point tenderness at this location. 2. Mild discoid atelectasis in the right lower lung zone. No other acute cardiopulmonary disease. Reviewed, dictated and finalized at location A. IMPRESSION: 1. Several old bilateral rib fractures and age indeterminate anterior left fift h rib fracture which given the proximity to old anterior left third and fourth rib fractures is likely chronic but would correlate for point tenderness at thi s location. 2. Mild discoid atelectasis in the right lower lung zone. No other acute cardio pulmonary disease.
--- NOTE | ~2020-11-06 | XR_ITS ---
EXAMINATION: XR surgery orthopedic EXAM DATE: 11/07/2020 08:48 INDICATION: Left hip pinning. TECHNIQUE: Fluoroscopy used during XR surgery orthopedic performed by Dr. Carlos Henderson MD. R adiologist was not present for the imaging or procedure. Total fluoroscopic time of 136 seconds. Th e DAP for this procedure was 0.42 mGym2. A total of 8 images sent to PACS from the exam. Correlation is made to left hip x-ray 11/06/2020. FINDINGS: There are 3 lag screws bridging a left hip subcapital femoral neck fracture, have been ins erted compared to prior x-ray. Correlate with procedure note. IMPRESSION: Fluoroscopy used during left subcapital femoral neck fixation. Reviewed, dictated and finalized at location A.
--- NOTE | ~2020-11-06 | CT_ITS ---
EXAMINATION: CT brain wo con DATE: 11/06/2020 04:23 INDICATION: Ground-level fall. TECHNIQUE: Computed tomography (CT) of the head was performed without intravenous contrast. The mA wa s adjusted according to patient size. Iterative reconstruction technique was employed. Exam dose: 60 5.33 mGy-cm total exam DLP. COMPARISON: 09/17/2019 CT brain FINDINGS: Chronic right periventricular, bilateral basal ganglia lacunar infarcts. Small old right oc cipital infarct. There is nonspecific patchy diminished attenuation of the subcortical and periventricular cerebral wh ite matter, likely due to chronic small vessel ischemic changes. Bilateral vertebral artery, basilar artery and bilateral carotid siphon internal carotid artery calcifications are noted. No intracranial mass lesion or hemorrhage, midline shift or mass effect effect or subdural or epidura l hematoma is detected. Included paranasal sinuses and mastoid air cells are unremarkable. No fracture or bone destruction of the cranial vault. IMPRESSION: Stable chronic right periventricular, bilateral basal ganglia lacunar infarcts and small focal right occipital infarct Cerebral atherosclerosis and chronic small vessel ischemic changes of the cerebral white matter No acute intracranial abnormality or skull fracture Reviewed, dictated and finalized at Location A. Reviewed, dictated and finalized at location B. IMPRESSION: Stable chronic right periventricular, bilateral basal ganglia lacu garret infarcts and small focal right occipital infarct Cerebral atherosclerosis and chronic small vessel ischemic changes of the cereb ral white matter No acute intracranial abnormality or skull fracture
--- NOTE | ~2020-11-06 | CT_ITS ---
EXAMINATION: CT pelvis wo con DATE: 11/06/2020 05:09 INDICATION: Left hip and groin pain. TECHNIQUE: High resolution computed tomography (CT) of the pelvis was performed without intravenous c ontrast. Additional sagittal and coronal reconstructions were performed. Automated exposure control a nd iterative reconstruction technique were employed. The dose-length product was 112.86 mGy-cm. COMPARISON: Left hip and pelvis radiographs dated 11/06/2020 FINDINGS: Nondisplaced subcapital fracture of the proximal left femur with anterior and lateral impaction. No o ther fractures identified. Mild bilateral hip and sacroiliac osteoarthritis. Severe disc height loss with sclerotic degenerative endplate changes at L4-L5. Moderate disc height loss at L3-L4 and mild di sc height loss at L5-S1. Severe facet osteoarthritis bilaterally at L4-L5 and L5-S1. Multiple diverti cula along the sigmoid and distal descending colon without adjacent inflammatory change to suggest di verticulitis. Appendix and visualized portions of the small bowels are normal. Calcified degenerated uterine fibroid. Bladder and bilateral adnexa are unremarkable. No free fluid in the pelvis. There is calcified atherosclerosis of the aorta and many of the arteries in the pelvis and proximal thighs. No pathologically enlarged pelvic or inguinal lymphadenopathy. IMPRESSION: 1. Anterior and laterally impacted nondisplaced subcapital fracture of the proximal left femur. 2. Severe lower lumbar spondylosis. 3. Degenerated uterine fibroid. 4. Diverticulosis. Reviewed, dictated and finalized at location A. IMPRESSION: 1. Anterior and laterally impacted nondisplaced subcapital fracture of the prox imal left femur. 2. Severe lower lumbar spondylosis. 3. Degenerated uterine fibroid. 4. Diverticulosis.
[2020-11-06 02:37] LABS: Add Urine Microscopic? YES; Appearance Urine Clear (Clear); Bilirubin Urine Negative (Negative); Blood Urine 1+ (Negative); Color Urine Straw (Yellow); Glucose Urine UA 1+ mg/dL (Negative); Ketones Urine Negative (Negative); Leukocyte Esterase Ur Negative LEU/UL (Negative); Mucus Urine Rare /lpf; Nitrate Urine Negative (Negative); Protein Urine 2+ mg/dL (Negative); Urobilinogen Urine Negative mg/dL (<2.0); WBC Urine 0-3 /hpf
[2020-11-06 03:28] LABS: Basophils Absolute Auto 0.1 K/mm3 (0.0-0.1); Basophils Percent Auto 0.4 % (0.2-1.2); Eosinophils Absolute Auto 0.1 K/mm3 (0-0.3); Eosinophils Percent Auto 0.6 % (0-4.4); Hematocrit 43.9 % (37.0-47.0); Hemoglobin 14.9 g/dL (12.0-15.0); Immature Granulocyte Absolute 0.18 K/mm3 (0.00-0.031); Immature Granulocyte Percent A 0.8 % (0-0.5); Lymphocytes Absolute Auto 1.77 K/mm3 (0.9-3.2); Lymphocytes Percent Auto 8.2 % (18.3-44.2); Mean Corpuscular HGB Conc 33.9 g/dl (32-36); Mean Corpuscular Hemoglobin 30.1 pg (26-34); Mean Corpuscular Volume 88.7 fl (80-100); Mean Platelet Volume 10.4 fl (7.4-10.4); Monocytes Absolute Auto 1.5 K/mm3 (0.1-0.6); Monocytes Percent Auto 6.9 % (2.6-8.5); Neutrophils Absolute Auto 17.9 K/mm3 (1.3-6.7); Neutrophils Percent Auto 83.1 % (45.5-73.1); Platelet Count Result 308 k/mm3 (150-375); Red Blood Count 4.95 M/mm3 (4.2-5.4); Red Cell Distribution Width 13.1 % (11.5-14.5); White Blood Count 21.6 K/mm3 (4.5-10.0)
[2020-11-06] MEDS: ONDANSETRON INJ 4 MG/2 ML VIAL IV PUSH (03:58)
[2020-11-06 04:12] LABS: Alanine Aminotransferase 23 U/L (4-35); Albumin Level 4.4 g/dL (3.5-5.1); Alkaline Phosphatase 89 U/L (38-126); Anion Gap 12 mmol/L (8-16); Aspartate Amino Transferase 32 U/L (14-36); Bilirubin,Total 0.7 mg/dL (0.2-1.3); Blood Urea Nitrogen 17 mg/dL (7-17); Calcium 9.5 mg/dL (8.4-10.2); Carbon Dioxide 18 mmol/L (22-30); Chloride 107 mmol/L (98-107); Estimated CRCL calculation 48 ml/min; Estimated Glomerular Filt Rate > 60; Glucose 234 mg/dL (65-110); Potassium 3.9 mmol/L (3.4-5.0); Sodium 137 mmol/L (137-145)
--- NOTE | 2020-11-06 04:18 | ED.FALL ---
HPI - Fall General Chief Complaint: Fall Stated Complaint: Fall Time Seen by Provider: 11/06/20 03:08 Source: patient, EMS and RN notes reviewed Mode of arrival: EMS Limitations: no limitations History of Present Illness HPI Narrative: This is a an 80 year old female who presents from an Assisted living facility for evaluation of fall. Patient reported to nursing that she fell around 2100 last night but she woke up with nausea at 130 am. Patient states she fell because someone startled her when she was getting off the toilet. She fell onto her left side. She has left rib pain and left groin pain. She is unsure if she hit her head but she denies headache or neck pain. She denies sob as well. Patient is having difficulty extending her left leg at her hip due to pain per patient. She takes aspirin. Related Data Home Medications Medication Instructions Recorded Confirmed aspirin 162.5 mg capsule,extended 162.5 mg PO DAILY 12/18/18 10/09/19 release 24 hr atenolol 25 mg tablet 50 mg PO BID 12/18/18 10/09/19 Januvia 100 mg PO DAILY 02/22/19 10/09/19 ezetimibe 10 mg PO DAILY 02/22/19 10/09/19 Allergies Allergy/AdvReac Type Severity Reaction Status Date / Time metformin Allergy Unknown Unknown Verified 10/30/19 09:05 Dgmrzsi-Jgl-Ivs Reductase Allergy Unknown Unknown Verified 10/30/19 09:05 Inhibitor Review of Systems Review of Systems: All systems reviewed & are unremarkable except as noted in HPI and below PMFSH Past Medical History Medical History (Updated 11/06/20 @ 06:10 by Yoana Gonzales MD) Arm fracture, left Arthritis Cataracts, bilateral CVA (cerebral vascular accident) 02/2019, with residual left sided arm/leg deficits Diabetes HLD (hyperlipidemia) Hypertension Myocardial infarction Shingles Surgical History Surgical History H/O cataract extraction bilaterally H/O colectomy due to diverticular bleed; patient denies this History of cardiac catheterization History of intestinal surgery Hx of CABG 4 vessels Hx of cholecystectomy Family History Family History Father Cerebrovascular accident Mother Colon cancer Sibling Esophageal cancer Alzheimers disease Social History Social History Social History: Patient is single and has never . She requested to be a DNR. 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 She quit smoking when she had her heart attack in 1997. She smoked for about 30 years Smoking packs per day: 1 Smoking cigarettes per day: 20.0 Years smoked: 30 Smoking pack-years: 30.00 Smoking status: Current every day smoker Tobacco type: cigarettes Second hand tobacco smoke exposure: No Smoking end date: 03/03/97 Alcohol intake: never Substance use: never Substance use type: does not use Gender identity (if verbalized by the patient): Female Spiritual care concerns: No Agree to blood products: Yes Exam Const: General: no acute distress and alert Orientation/consciousness: patient oriented x3 HENMT: Head: normocephalic and atraumatic General nose exam: Normal external nose present Face and sinus: normal facial exam, sinuses nontender and face symmetric Mouth: Yes Normal oral and palatal mucosa present, Yes lip normal, Yes oropharynx normal and Yes moist mucous membranes Eyes: EOM: EOMs intact bilaterally Chest: Chest palpation & inspection: tenderness rib Resp: Effort & Inspection: normal respiratory effort Auscultation: clear to auscultation bilaterally Cardio: Rate: regular rate Rhythm: regular rhythm Heart sounds: no murmurs GI: GI Palp: Yes Soft to palpation, No Tenderness to palpation present (GI) and No Guarding due to palpation present (GI) Auscultation: normal bowel sounds Skin: General skin exam: normal color
--- NOTE | 2020-11-06 06:09 | ECG_ITS ---
Measurements Intervals [place] Rate: 73 P: 48 MN: 160 QRS: 29 QRSD: 85 T: 226 QT: 399 QTc: 442 Interpretive Statements SINUS RHYTHM BORDERLINE ST-T WAVE ABNORMALITY- DIFFUSE LEADS BASELINE ARTIFACT- I, II, III, AVR, AVL, AVF, V2-V6 BORDERLINE ECG Electronically Signed On 11-06-2020 8:23:23 CDT by Cruzito Bourgeois D.O.
--- NOTE | 2020-11-06 07:05 | PC.NURSE ---
assumed care of pt from alfie mcgregor. pt sleeping on stretcher on back with both legs bent. no distress noted. bed assignment just received from floor. admission in progress.
--- NOTE | 2020-11-06 08:19 | PM.IMHP ---
H&P: HPI History of Present Illness Date/Time: 11/06/20 08:19 Chief Complaint: Fall Narrative: Patient is a 80-year-old female with a past medical history of hypertension, diabetes, CVA affecting her left side, and depression who presented to the emergency room due to a fall. She states that yesterday around 9:00 p.m. she was on the commode and she was getting up to transfer to her wheelchair when the staff walked in and scared her and she fell. She states that she did not lose consciousness but is unsure if she hit her head. She had no initial pain and was able to get put back in her wheelchair but she woke up in the middle the night with significant pain to the left hip/groin and left ribs. She has no numbness or tingling to the lower extremity and she is chronically unable to move the extremity due to an old stroke. She states that she is usually in a wheelchair and can transfer by herself. She does occasionally walk with physical therapy but that is the only time that she walks. She currently states that her pain is a 2/10. She mentions that she had some vomiting/gagging after this fall but that has resolved and she has no further nausea or abdominal pain. She denies diarrhea, constipation, chest pain, shortness of breath, fevers, chills, rashes, wounds, headaches or dysuria. She has been fully vaccinated against COVID-19 and influenza this year. Her last bowel movement was yesterday and was normal for her. Review of Systems Review of Systems: All systems reviewed & are unremarkable except as noted in HPI and below [facility] Past Medical History Medical History (Updated 11/06/20 @ 09:54 by Faina Kurtz PA-C) Arm fracture, left Arthritis Cataracts, bilateral CVA (cerebral vascular accident) 02/2019, with residual left sided arm/leg deficits Diabetes HLD (hyperlipidemia) Hypertension Myocardial infarction Shingles Surgical History Surgical History H/O cataract extraction bilaterally H/O colectomy due to diverticular bleed; patient denies this History of cardiac catheterization History of intestinal surgery Hx of CABG 4 vessels Hx of cholecystectomy Family History Family History Father Cerebrovascular accident Mother Colon cancer Sibling Esophageal cancer Alzheimers disease Social History Social History (Updated 11/06/20 @ 09:53 by Faina Kurtz PA-C) Social History: Patient is single and has never . She requested to be a DNR. 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 She quit smoking when she had her heart attack in 1997. She smoked for about 30 years and had 1PPD. She drinks one drink a year at [facility] Smoking packs per day: 1 Smoking cigarettes per day: 20.0 Years smoked: 30 Smoking pack-years: 30.00 Smoking status: Current every day smoker Tobacco type: cigarettes Second hand tobacco smoke exposure: No Smoking end date: 03/03/97 Alcohol intake: never Substance use: never Substance use type: does not use Gender identity (if verbalized by the patient): Female Spiritual care concerns: No Agree to blood products: Yes Meds Home Medications and Allergies Home Medications Medication Instructions Recorded Confirmed Type aspirin 162.5 mg capsule,extended 162.5 mg PO DAILY 12/18/18 10/09/19 History release 24 hr atenolol 25 mg tablet 50 mg PO BID 12/18/18 10/09/19 History Januvia 100 mg PO DAILY 02/22/19 10/09/19 History ezetimibe 10 mg PO DAILY 02/22/19 10/09/19 History lisinopril 40 mg PO DAILY 30 Days #30 tablet 02/25/19 10/09/19 Rx ergocalciferol (vitamin D2) 50,000 unit PO Mo@0900 #0 cap 03/20/19 10/09/19 Rx [Vitamin D2] escitalopram oxalate 5 mg PO QAM #0 tablet 03/20/19 10/09/19 Rx amlodipine 2.5 mg PO QAM #30 tablet 09/20/19 10/09/19 Rx Allergies Allergy/AdvReac Type Severity Re
--- NOTE | 2020-11-06 08:47 | ADMGEN ---
This patient, Marily St, was admitted to [facility] Surg Room 304-02. Patient oriented to hospital policies and general routines including ID bracelet, bed and alarms, visiting hours, pain management, procedures, bathroom and other care routines, personal items, smoking policy, room service/diet, and visiting hours. Information on how to activate the Rapid Response Team has been discussed. Patient/Family are encouraged to report perceived risks to care and to ask questions if they do not understand what they are told or what they should do.
[2020-11-06] MEDS: SODIUM CHLORIDE 0.9% IV 1,000 ML 125 ML IV CONT (10:17)
[2020-11-06 10:31] LABS: Anion Gap 12 mmol/L (8-16); Blood Urea Nitrogen 17 mg/dL (7-17); Calcium 9.7 mg/dL (8.4-10.2); Carbon Dioxide 25 mmol/L (22-30); Chloride 104 mmol/L (98-107); Estimated CRCL calculation 48 ml/min; Estimated Glomerular Filt Rate > 60; Glucose 175 mg/dL (65-110); Potassium 4.1 mmol/L (3.4-5.0); Sodium 141 mmol/L (137-145)
[2020-11-06 11:55] LABS: Glucose Point of Care 153 mg/dl (65-105)
[2020-11-06 16:16] LABS: Glucose Point of Care 121 mg/dl (65-105)
[2020-11-06] MEDS: atenoloL 25 MG TABLET PO (17:30)
[2020-11-06] MEDS: atenoloL 12.5 MG TABLET PO (17:30)
--- NOTE | 2020-11-06 17:35 | PM.CNOR ---
Assessment and Plan Assessment and plan (1) Closed subcapital fracture of left femur: Qualifiers: Encounter type: initial encounter Qualified Code(s): S72.012A - Unspecified intracapsular fracture of left femur, initial encounter for closed fracture Code(s): S72.012A - Unspecified intracapsular fracture of left femur, initial encounter for closed fracture Status: Acute (2) CVA (cerebral vascular accident): Code(s): I63.9 - Cerebral infarction, unspecified Status: Acute Assessment and Plan: Nondisplaced fracture with valgus impaction. Risk of late displacement. I recommend stabilization of the fracture with percutaneous cannulated screws. We discussed the risks, benefits, and alternatives to surgery. Proceed with percutaneous pinning of left hip femoral neck fracture. She may need 3-6 weeks of [facility] to assist with safe transfers. She is a high fall risk. Anticipate partial weight bearing for 4 weeks, then WBAT. History of Present Illness HPI Consult date: 11/06/20 Chief complaint: closed left femoral neck fracture Narrative: Patient complains of acute hip pain. Fell from standing height. Admitted through the emergency room for definitive managmenet. No previous hip pain. Comfortable at rest. No numbness, tingling, or other associated symptoms. Review of Systems Review of Systems: Denies loss of consciousness. History of stroke with left-sided hemiparesis. Very minimal ambulator; primarily transfers independently and uses a wheelchair at assisted living. Able to walk with physical therapy assistance. All systems reviewed & are unremarkable except as noted in HPI and below PMFSH Past Medical History Medical History Arm fracture, left Arthritis Cataracts, bilateral CVA (cerebral vascular accident) 02/2019, with residual left sided arm/leg deficits Diabetes HLD (hyperlipidemia) Hypertension Myocardial infarction Shingles Surgical History Surgical History H/O cataract extraction bilaterally H/O colectomy due to diverticular bleed; patient denies this History of cardiac catheterization History of intestinal surgery Hx of CABG 4 vessels Hx of cholecystectomy Family History Family History Father Cerebrovascular accident Mother Colon cancer Sibling Esophageal cancer Alzheimers disease Social History Social History Social History: Patient is single and has never . She requested to be a DNR. 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 She quit smoking when she had her heart attack in 1997. She smoked for about 30 years and had 1PPD. She drinks one drink a year at [facility] Smoking packs per day: 1 Smoking cigarettes per day: 20.0 Years smoked: 30 Smoking pack-years: 30.00 Smoking status: Former smoker Tobacco type: cigarettes Second hand tobacco smoke exposure: No Smoking end date: 03/03/97 Alcohol intake: never Substance use: never Substance use type: does not use Gender identity (if verbalized by the patient): Female Spiritual care concerns: No Agree to blood products: Yes Meds Home Medications and Allergies Home Medications Medication Instructions Recorded Confirmed Type aspirin 162.5 mg capsule,extended 162.5 mg PO DAILY 12/18/18 11/06/20 History release 24 hr atenolol 25 mg tablet 37.5 mg PO BID 12/18/18 11/06/20 History Januvia 100 mg PO DAILY 02/22/19 11/06/20 History ezetimibe 10 mg PO DAILY 02/22/19 11/06/20 History lisinopril 40 mg PO DAILY 30 Days #30 tablet 02/25/19 11/06/20 Rx ergocalciferol (vitamin D2) 50,000 unit PO Mo@0900 #0 cap 03/20/19 11/06/20 Rx [Vitamin D2] escitalopram oxalate 5 mg PO QAM #0 tablet 03/20/19
[2020-11-06 23:17] LABS: Glucose Point of Care 132 mg/dl (65-105)
[2020-11-07] VITALS (24 sets, daily range): BP systolic 119–185; BP diastolic 62–88; PULSE 64–81; RESP 10–20; TEMP 36.3–37.6; O2SAT 81–99
[2020-11-07] MEDS: LACTATED RINGERS 1,000 ML 30 ML IV CONT (06:30)
[2020-11-07 06:38] LABS: Glucose Point of Care 135 mg/dl (65-105)
--- NOTE | 2020-11-07 06:51 | WPDANESEPPF ---
Anes - Initial Pre Proc Eval Procedure: Operation Date: 11/07/20 07:30 Proposed Procedures p Hip Pinning Cannulated Screws - Carlos Henderson MD Date/Time: 11/07/20 06:51 Surgeon: Faina Kurtz PA-C Pre Op Diagnosis: closed left femoral neck fracture Patient Data Age: 80 Gender: F Height: 1.6 m Weight: 50 kg Last Vital Signs Temp 37.6 C H 11/07/20 06:36 Pulse 73 11/07/20 06:36 Resp 16 11/07/20 06:36 BP 179/62 H 11/07/20 06:36 Pulse Ox 92 11/07/20 06:36 Allergies Allergy/AdvReac Type Severity Reaction Status Date / Time metformin Allergy Unknown Unknown Verified 11/06/20 10:12 Jfodvok-Vdl-Jfo Reductase Allergy Unknown Unknown Verified 11/06/20 10:12 Inhibitor Home Medications Medication Instructions Recorded Confirmed Type aspirin 162.5 mg capsule,extended 162.5 mg PO DAILY 12/18/18 11/06/20 History release 24 hr atenolol 25 mg tablet 37.5 mg PO BID 12/18/18 11/06/20 History Januvia 100 mg PO DAILY 02/22/19 11/06/20 History ezetimibe 10 mg PO DAILY 02/22/19 11/06/20 History lisinopril 40 mg PO DAILY 30 Days #30 tablet 02/25/19 11/06/20 Rx ergocalciferol (vitamin D2) 50,000 unit PO Mo@0900 #0 cap 03/20/19 11/06/20 Rx [Vitamin D2] escitalopram oxalate 5 mg PO QAM #0 tablet 03/20/19 11/06/20 Rx amlodipine 10 mg PO DAILY 11/06/20 11/06/20 History famotidine 20 mg PO DAILY 11/06/20 11/06/20 History Laboratory Tests 11/06/20 11/06/20 11/06/20 10:11 11:52 14:22 Sodium 141 mmol/L mmol/L (137-145) Potassium 4.1 mmol/L mmol/L (3.4-5.0) Chloride 104 mmol/L mmol/L (98-107) Carbon Dioxide 25 mmol/L mmol/L (22-30) Anion Gap 12 mmol/L mmol/L (8-16) BUN 17 mg/dL mg/dL (7-17) Creatinine 0.60 mg/dL L mg/dL (0.7-1.0) Estim Creat Clear Calc 48 ml/min ml/min Estimated GFR > 60 (59 - ) Glucose 175 mg/dL H mg/dL (65-110) POC Capillary Glucose 153 mg/dl H mg/dl (65-105) Calcium 9.7 mg/dL mg/dL (8.4-10.2) Blood Type O Positive Antibody Screen Negative 11/06/20 11/06/20 11/07/20 16:02 20:00 06:34 Sodium Potassium Chloride Carbon Dioxide Anion Gap BUN Creatinine Estim Creat Clear Calc Estimated GFR Glucose POC Capillary Glucose 121 mg/dl H mg/dl 132 mg/dl H mg/dl 135 mg/dl H mg/dl (65-105) (65-105) (65-105) Calcium Blood Type Antibody Screen Patient hx anesthesia problems: none Family hx anesthesia problems: none Results Review: All pre-operative results and documents have been reviewed as part of the pre-operative evaluation. [facility] Past Medical History Medical History Arm fracture, left Arthritis Cataracts, bilateral CVA (cerebral vascular accident) 02/2019, with residual left sided arm/leg deficits Diabetes HLD (hyperlipidemia) Hypertension Myocardial infarction Shingles Surgical History Surgical History H/O cataract extraction bilaterally H/O colectomy due to diverticular bleed; patient denies this History of cardiac catheterization History of intestinal surgery Hx of CABG 4 vessels Hx of cholecystectomy Family History Family History Father Cerebrovascular accident Mother Colon cancer Sibling Esophageal cancer Alzheimers disease Social History Social History Social History: Patient is single and has never . She requested to be a DNR. 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 She quit smoking when she had her heart attack in 1997. She smoked for about 30 years and h
--- NOTE | 2020-11-07 07:24 | WPDHPUPDATE1 ---
History and Physical Update Update Date/Time: 11/07/20 07:24 History and Physical has been reviewed, including an updated exam of the patient. There are NO changes in the patient's condition. Risks, benefits, and alternatives have been discussed and questions answered. Patient agrees to proceed with procedure.
[2020-11-07] MEDS: ceFAZolin 2 GM/D5W 50 ML 2 GM/50 ML BAG IVPB (07:28)
[2020-11-07] MEDS: BUPIVACAINE HCL 0.5% PF 30 ML VIAL INFILTRATE (08:11)
[2020-11-07 09:06] LABS: Glucose Point of Care 109 mg/dl (65-105)
--- NOTE | 2020-11-07 09:22 | W.PM.PROC2 ---
Procedure Note - Detailed Date of Procedure 11/07/20 Pre-op Diagnosis closed left femoral neck fracture Post-op Diagnosis same Procedure Performed Percutaneous pinning, left hip valgus impacted femoral neck fracture. Surgeon Carlos Henderson MD Inside Steward/Stewardess Marie Quintero PA-C Anesthesia general Description of Procedure Preoperative antibiotics were given. The patient was brought to the operating room. In general anesthetic was administered. The patient was carefully placed on the fracture table. By planar fluoroscopy was used to confirm maintenance of reduction and treatment of reduction as necessary. The hip was prepped and draped in usual sterile fashion with a sterile curtain. A stab incision was created at the inferior trochanter. The guide pin was placed into the center of the femoral neck inferiorly. Two additional guide pins were placed superiorly were inverted triangle shape. Measurements were taken and the outer cortex was drilled. Three partially-threaded cannulated screws were placed. The crease incisions were closed with interrupted 4-0 Monocryl suture followed by Steri-Strips. The sterile dressing was applied. The patient was transferred to the recovery room in stable condition and extubated. There were no complications. Implants 7.3 mm cannulated Synthes screws x 3. Estimated Blood Loss -5.0 Urine Output -200.0 Drains No Pathology none sent Complications No immediate complications Condition stable Disposition PACU
--- NOTE | 2020-11-07 11:12 | PC.NURSE ---
Returned from OR per bed @ 1050. Report received from [employer] [facility] @ 2274.
[2020-11-07] MEDS: amLODIPine BESYLATE 5 MG TABLET 10 MG PO (12:07)
[2020-11-07] MEDS: atenoloL 12.5 MG TABLET PO ×2 (12:07→18:32)
[2020-11-07] MEDS: FAMOTIDINE 20 MG TABLET PO (12:08)
[2020-11-07] MEDS: lisinopriL 20 MG TABLET 40 MG PO (12:08)
[2020-11-07] MEDS: EZETIMIBE 10 MG TABLET PO (12:08)
[2020-11-07] MEDS: atenoloL 25 MG TABLET PO ×2 (12:08→18:31)
[2020-11-07] MEDS: DOCUSATE SODIUM 100 MG CAPSULE PO ×2 (12:48→18:31)
[2020-11-07] MEDS: ENOXAPARIN 30 MG/0.3 ML SYRINGE SUB-Q (12:48)
[2020-11-07 12:52] LABS: Basophils Absolute Auto 0.1 K/mm3 (0.0-0.1); Basophils Percent Auto 0.4 % (0.2-1.2); Eosinophils Absolute Auto 0.3 K/mm3 (0-0.3); Eosinophils Percent Auto 1.4 % (0-4.4); Hematocrit 45.4 % (37.0-47.0); Immature Granulocyte Absolute 0.12 K/mm3 (0.00-0.031); Immature Granulocyte Percent A 0.6 % (0-0.5); Lymphocytes Absolute Auto 2.07 K/mm3 (0.9-3.2); Mean Corpuscular Hemoglobin 29.8 pg (26-34); Mean Corpuscular Volume 90.3 fl (80-100); Mean Platelet Volume 10.7 fl (7.4-10.4); Monocytes Absolute Auto 1.3 K/mm3 (0.1-0.6); Monocytes Percent Auto 6.7 % (2.6-8.5); Neutrophils Percent Auto 79.9 % (45.5-73.1); Platelet Count Result 255 k/mm3 (150-375); Red Blood Count 5.03 M/mm3 (4.2-5.4); Red Cell Distribution Width 13.2 % (11.5-14.5); White Blood Count 18.8 K/mm3 (4.5-10.0)
--- NOTE | 2020-11-07 12:56 | PM.IMPN ---
Progress Note: A&P Assessment and Plan (1) Subcapital fracture of left hip: Code(s): S72.012A - Unspecified intracapsular fracture of left femur, initial encounter for closed fracture Status: Acute Assessment and Plan: Patient presented the ER for fall and hip x-ray showing a subcapital fracture of the proximal left femur -status post percutaneous pinning of the left hip postop day 0 -continue pain medications -PT and OT will be ordered after ortho has evaluated the patient and plan of treatment has been set -patient is wheelchair bound most of the time but can transfer on her own. She does walk occasionally with physical therapy -Lovenox for DVT prophylaxis (2) Leukocytosis: Code(s): D72.829 - Elevated white blood cell count, unspecified Status: Acute Assessment and Plan: Noted on admission, thought to be reactionary -CBC pending for today -patient did had some vomiting prior to admission -UA does not appear to be infectious -chest x-ray a shows atelectasis but concerns for pneumonia -monitor daily labs (3) T2DM (type 2 diabetes mellitus): Code(s): E11.9 - Type 2 diabetes mellitus without complications Status: Acute Assessment and Plan: Last glucose 184 -A1c pending -continue sliding scale insulin -hold home Januvia (4) Depression: Code(s): F32.9 - Major depressive disorder, single episode, unspecified Status: Acute Assessment and Plan: Chronic and stable -continue a escitalopram (5) History of CVA (cerebrovascular accident): Code(s): Z86.73 - Personal history of transient ischemic attack (TIA), and cerebral infarction without residual deficits Status: Acute Assessment and Plan: With chronic left-sided weakness -okay to restart aspirin tomorrow morning (6) Rib fracture: Code(s): S22.39XA - Fracture of one rib, unspecified side, initial encounter for closed fracture Status: Acute Assessment and Plan: Patient is acutely tender to the left ribs. Rib x-ray unable to determine the chronicity rib fractures to the left rib. -continue with pain medications Time Spent With Patient Time with patient: 25 - 35 minutes Subjective Date/time seen: 11/07/20 12:56 Interval history: Pt is a 80-year-old female here for hip fracture. Patient was seen today and eating lunch with no complaints. She says she feels a little pain to her left hip but overall doing okay. Pt denies nausea, vomiting, fevers, chills, constipation, diarrhea, chest pain, sob, or abdominal pain. Review of Systems Review of Systems: All systems reviewed & are unremarkable except as noted in HPI and below Exam Narrative: General:Well developed well nourished patient HEENT: Normocephalic, atraumatic, PERRL, Sclerae anicteric, oral mucosa moist. Neck: Supple, no pain to palpation Resp: CTA Heart: RRR with no murmurs Abd: Soft, nontender. No pain to palpation. Positive bowel sounds Skin: Warm and dry Extremities: Pain to palpation to the left hip. No notable rotation. Sensation intact. Weakness that is chronic to the left lower extremity Neuro: Alert and Oriented x 4. CN 2-12 intact. Significant weakness to the left upper extremity and left lower extremity that is chronic. Objective Data Vital Signs Vital Signs: Vital Signs - 24 hr 11/06/20 14:00 11/06/20 17:30 11/06/20 22:00 Temperature 98.7 F 98.4 F Pulse Rate 74 74 60 Respiratory Rate 16 18 Blood Pressure 162/67 H 163/54 H Pulse Oximetry 92 95 11/07/20 06:00 11/07/20 06:36 11/07/20 08:53 Temperature 98.3 F 99.7 F H 98.3 F Pulse Rate 69 73 69 Respiratory Rate 18 16 10 L Blood Pressure 185/71 H 179/62 H 119/65 Pulse Oximetry 92 92 99 11/07/20 09:05 11/07/20 09:20 11/07/20 09:35 Temperature Pulse Rate 75 80 81 Respiratory Rate 10 L 12 12 Blood Pressure 153/76 H 169/80 H 168/88 H Pulse Oximetry 99 98 98 11/07/20 09:38
[2020-11-07 13:00] LABS: Glucose Point of Care 184 mg/dl (65-105)
[2020-11-07 13:14] LABS: Alanine Aminotransferase 22 U/L (4-35); Albumin Level 4.1 g/dL (3.5-5.1); Alkaline Phosphatase 74 U/L (38-126); Anion Gap 10 mmol/L (8-16); Aspartate Amino Transferase 39 U/L (14-36); Blood Urea Nitrogen 13 mg/dL (7-17); Calcium 8.6 mg/dL (8.4-10.2); Carbon Dioxide 23 mmol/L (22-30); Chloride 105 mmol/L (98-107); Estimated CRCL calculation 57 ml/min; Estimated Glomerular Filt Rate > 60; Glucose 170 mg/dL (65-110); Potassium 4.3 mmol/L (3.4-5.0); Sodium 138 mmol/L (137-145)
[2020-11-07 13:42] LABS: Hemoglobin A1C 5.9 % (<5.7)
--- NOTE | 2020-11-07 14:08 | PCPTNOTE ---
Attempted PT eval. Pt refused as she wanted to sleep. Will try again tomorrow.
[2020-11-07 16:53] LABS: Glucose Point of Care 182 mg/dl (65-105)
[2020-11-07 22:13] LABS: Glucose Point of Care 154 mg/dl (65-105)
[2020-11-08] VITALS (7 sets, daily range): BP systolic 156–167; BP diastolic 57–70; PULSE 63–68; RESP 16; TEMP 36.6–37.1; O2SAT 90–93
[2020-11-08 06:42] LABS: Hematocrit 39.3 % (37.0-47.0); Hemoglobin 13.2 g/dL (12.0-15.0); Mean Corpuscular HGB Conc 33.6 g/dl (32-36); Mean Corpuscular Hemoglobin 30.1 pg (26-34); Mean Corpuscular Volume 89.7 fl (80-100); Platelet Count Result 242 k/mm3 (150-375); Red Blood Count 4.38 M/mm3 (4.2-5.4); Red Cell Distribution Width 13.2 % (11.5-14.5); White Blood Count 13.7 K/mm3 (4.5-10.0)
[2020-11-08 06:58] LABS: Anion Gap 7 mmol/L (8-16); Blood Urea Nitrogen 11 mg/dL (7-17); Calcium 8.8 mg/dL (8.4-10.2); Carbon Dioxide 27 mmol/L (22-30); Chloride 104 mmol/L (98-107); Estimated CRCL calculation 48 ml/min; Estimated Glomerular Filt Rate > 60; Glucose 132 mg/dL (65-110); Potassium 3.2 mmol/L (3.4-5.0); Sodium 138 mmol/L (137-145)
[2020-11-08 08:59] LABS: Glucose Point of Care 168 mg/dl (65-105)
[2020-11-08] MEDS: atenoloL 12.5 MG TABLET PO ×2 (09:07→17:23)
[2020-11-08] MEDS: ASPIRIN 81 MG ENTERIC TABLET PO (09:09)
[2020-11-08] MEDS: POTASSIUM CHLORIDE 20 MEQ TABLET 40 MEQ PO (09:09)
[2020-11-08] MEDS: lisinopriL 20 MG TABLET 40 MG PO (09:10)
[2020-11-08] MEDS: EZETIMIBE 10 MG TABLET PO (09:10)
[2020-11-08] MEDS: amLODIPine BESYLATE 5 MG TABLET 10 MG PO (09:10)
[2020-11-08] MEDS: atenoloL 25 MG TABLET PO ×2 (09:10→17:23)
[2020-11-08] MEDS: FAMOTIDINE 20 MG TABLET PO (09:10)
[2020-11-08] MEDS: DOCUSATE SODIUM 100 MG CAPSULE PO ×2 (09:11→17:22)
[2020-11-08] MEDS: ENOXAPARIN 30 MG/0.3 ML SYRINGE SUB-Q (09:11)
--- NOTE | 2020-11-08 09:50 | PM.PNORT ---
Progress Note: A&P Assessment and Plan (1) Closed subcapital fracture of left femur: Qualifiers: Encounter type: initial encounter Qualified Code(s): S72.012A - Unspecified intracapsular fracture of left femur, initial encounter for closed fracture Code(s): S72.012A - Unspecified intracapsular fracture of left femur, initial encounter for closed fracture Status: Acute (2) History of CVA (cerebrovascular accident): Code(s): Z86.73 - Personal history of transient ischemic attack (TIA), and cerebral infarction without residual deficits Status: Acute Assessment and Plan: POD #1 Percutaneous pinning, left hip valgus impacted femoral neck fracture. Patient tolerated procedure well. Pain manageable with pain medication. No pain at rest. Pain with motion. No numbness or tingling. Was able to wiggle toes. She may need [facility] assist with [facility] transfers. She is a high fall risk. Anticipate partial weight bearing for 4 weeks, then WBAT. Discharge planning in progress. Ortho instructions: Anticipate D/C to SNF/rehab Xray 2 weeks post op. f/u in office at 4 weeks post op. Wound Care: Remove Mepilex dressing 7 days post op. Remove steri-strips at 14 days post op. May shower. No soaking. PT: Partial weight bearing for 4 weeks then WBAT. Will need walker and assistance. High fall risk. DVT prophylaxis: continue Lovenox for 30 days total Pain medication: Tylenol Subjective Subjective Date/Time Seen: 11/08/20 09:50 POD #1 Percutaneous pinning, left hip valgus impacted femoral neck fracture. Patient progressing well. Mild pain with motion. No pain at rest. Able to wiggle toes and flex at the hip. No distal numbness or tingling. Complains of also left sided rib pain. No other complaints at this time. Review of Systems Review of Systems: All systems reviewed & are unremarkable except as noted in HPI and below Exam Narrative: Pleasant 80 y/o female. Wound healing. Dressing intact. No drainage, erythema, warmth, ecchymosis. Lower legs in a less flexed position today. No lower extremity deformity. Const: General: no acute distress Eyes: General: appearance normal, both eyes and all related structures Resp: Effort & Inspection: normal respiratory effort GI: GI Palp: Yes Soft to palpation and No Guarding due to palpation present (GI) Urinary Catheter: Urinary Catheter: patent and draining and urine clear Skin: General skin exam: no rashes or lesions noted Neuro: Speech: normal speech Other: Wiggles toes well. Capillary refill brisk. Distal light touch sensation intact. Dorsalis pedis pulse palpable. Light touch sensation intact. Extrem: Other: No edema. Psych: Mental Status: mental status grossly normal Objective Data Vital Signs Vital Signs: Vital Signs - 24 hr 11/07/20 10:05 11/07/20 10:20 11/07/20 10:34 Temperature 98.0 F Pulse Rate 70 70 66 Respiratory Rate 14 16 14 Blood Pressure 166/84 H 166/73 H 156/65 H Pulse Oximetry 94 94 95 11/07/20 10:50 11/07/20 10:55 11/07/20 11:05 Temperature 97.7 F 97.4 F L Pulse Rate 72 65 Respiratory Rate 16 12 Blood Pressure 156/74 H 165/70 H Pulse Oximetry 97 93 96 11/07/20 11:35 11/07/20 12:07 11/07/20 12:08 Temperature 97.8 F Pulse Rate 71 70 70 Respiratory Rate 16 Blood Pressure 155/68 H Pulse Oximetry 91 11/07/20 14:00 11/07/20 18:31 11/07/20 18:32 Temperature 97.7 F Pulse Rate 68 72 72 Respiratory Rate 16 Blood Pressure 153/63 H Pulse Oximetry 94 11/07/20 20:00 11/07/20 22:00 11/07/20 23:59 Temperature 98.2 F 97.9 F Pulse Rate 67 67 64 Respiratory Rate 20 20 18 Blood Pressure 151/81 H 144/76 H Pulse Oximetry 92 92 91 11/08/20 04:08 11/08/20 06:00 11/08/20 09:07 Temperature 98.8 F 98.8 F Pulse Rate 63 63 68 Respiratory Rate 16 16 Blood Pressure 160/70 H 160/70 H Pulse Oximetry 92 92 11/08/20 09:10 Temperature Pulse Rate 68 Respi
--- NOTE | 2020-11-08 11:04 | PM.IMPN ---
Progress Note: A&P Assessment and Plan (1) Subcapital fracture of left hip: Code(s): S72.012A - Unspecified intracapsular fracture of left femur, initial encounter for closed fracture Status: Acute Assessment and Plan: Patient presented the ER for fall and hip x-ray showing a subcapital fracture of the proximal left femur -status post percutaneous pinning of the left hip postop day 1 -continue pain medications as needed. Pain is controlled -PT and OT ordered. If she does well she can go to [place] but if she needs further therapy needs, she will need to go to SNF -patient is wheelchair bound most of the time but can transfer on her own -Lovenox for DVT prophylaxis (2) Leukocytosis: Code(s): D72.829 - Elevated white blood cell count, unspecified Status: Acute Assessment and Plan: Improving, thought to be reactionary -UA does not appear to be infectious -chest x-ray a shows atelectasis but concerns for pneumonia -monitor daily labs -no infx suspected (3) T2DM (type 2 diabetes mellitus): Code(s): E11.9 - Type 2 diabetes mellitus without complications Status: Acute Assessment and Plan: Last glucose 168 -A1c 5.9 -continue sliding scale insulin -hold home Januvia (4) Depression: Code(s): F32.9 - Major depressive disorder, single episode, unspecified Status: Acute Assessment and Plan: Chronic and stable -continue a escitalopram (5) History of CVA (cerebrovascular accident): Code(s): Z86.73 - Personal history of transient ischemic attack (TIA), and cerebral infarction without residual deficits Status: Acute Assessment and Plan: With chronic left-sided weakness -continue aspirin (6) Rib fracture: Code(s): S22.39XA - Fracture of one rib, unspecified side, initial encounter for closed fracture Status: Acute Assessment and Plan: Patient is acutely tender to the left ribs. Rib x-ray unable to determine the chronicity rib fractures to the left rib. -continue with pain medications Subjective Date/time seen: 11/08/20 11:04 Interval history: Pt is a 80-year-old female here for hip fracture. Patient was seen today and has no complaints. She has no pain to her hip today. Pt denies nausea, vomiting, fevers, chills, constipation, diarrhea, chest pain, sob, or abdominal pain. She has not had a BM since tuesday. Exam Narrative: General:Well developed well nourished patient HEENT: Normocephalic, atraumatic, PERRL, Sclerae anicteric, oral mucosa moist. Neck: Supple, no pain to palpation Resp: CTA Heart: RRR with no murmurs Abd: Soft, nontender. No pain to palpation. Positive bowel sounds Skin: Warm and dry Extremities: left hip incision site clean and dry without erythema, dehiscence or discharge. Weakness that is chronic to the left lower extremity Neuro: Alert and Oriented x 4. CN 2-12 intact. Significant weakness to the left upper extremity and left lower extremity that is chronic. Objective Data Vital Signs Vital Signs: Vital Signs - 24 hr 11/07/20 11:05 11/07/20 11:35 11/07/20 12:07 Temperature 97.4 F L 97.8 F Pulse Rate 65 71 70 Respiratory Rate 12 16 Blood Pressure 165/70 H 155/68 H Pulse Oximetry 96 91 11/07/20 12:08 11/07/20 14:00 11/07/20 18:31 Temperature 97.7 F Pulse Rate 70 68 72 Respiratory Rate 16 Blood Pressure 153/63 H Pulse Oximetry 94 11/07/20 18:32 11/07/20 20:00 11/07/20 22:00 Temperature 98.2 F Pulse Rate 72 67 67 Respiratory Rate 20 20 Blood Pressure 151/81 H Pulse Oximetry 92 92 11/07/20 23:59 11/08/20 04:08 11/08/20 06:00 Temperature 97.9 F 98.8 F 98.8 F Pulse Rate 64 63 63 Respiratory Rate 18 16 16 Blood Pressure 144/76 H 160/70 H 160/70 H Pulse Oximetry 91 92 92 11/08/20 09:07 11/08/20 09:10 Temperature Pulse Rate 68 68 Respiratory Rate Blood Pressure Pulse Oximetry Intake/Output Intake/Out
[2020-11-08] MEDS: ESCITALOPRAM OXALATE 5 MG TABLET PO (11:31)
[2020-11-08 12:58] LABS: Glucose Point of Care 188 mg/dl (65-105)
[2020-11-08 18:18] LABS: Glucose Point of Care 188 mg/dl (65-105)
[2020-11-08] MEDS: oxyCODONE HCL (*CRX) 2.5 MG TAB IR PO (18:55)
[2020-11-08 21:02] LABS: Glucose Point of Care 134 mg/dl (65-105)
[2020-11-09 06:00] VITALS: BP 172/72; PULSE 62; RESP 16; TEMP 36.4; O2SAT 92
[2020-11-09] MEDS: hydrALAZINE HCL 20 MG/ML VIAL 10 MG IV PUSH (06:37)
[2020-11-09 06:57] LABS: Anion Gap 6 mmol/L (8-16); Blood Urea Nitrogen 12 mg/dL (7-17); Calcium 8.8 mg/dL (8.4-10.2); Carbon Dioxide 26 mmol/L (22-30); Chloride 104 mmol/L (98-107); Estimated CRCL calculation 57 ml/min; Estimated Glomerular Filt Rate > 60; Glucose 134 mg/dL (65-110); Magnesium 2.1 mg/dL (1.6-2.3); Potassium 3.5 mmol/L (3.4-5.0); Sodium 136 mmol/L (137-145)
[2020-11-09 08:12] LABS: Glucose Point of Care 133 mg/dl (65-105)
[2020-11-09] MEDS: ENOXAPARIN 30 MG/0.3 ML SYRINGE SUB-Q (09:42)
[2020-11-09] MEDS: ESCITALOPRAM OXALATE 5 MG TABLET PO (09:42)
[2020-11-09] MEDS: DOCUSATE SODIUM 100 MG CAPSULE PO (09:42)
[2020-11-09] MEDS: amLODIPine BESYLATE 5 MG TABLET 10 MG PO (09:43)
[2020-11-09 09:44] VITALS: PULSE 64
[2020-11-09] MEDS: atenoloL 12.5 MG TABLET PO (09:44)
[2020-11-09 09:45] VITALS: PULSE 64
[2020-11-09] MEDS: atenoloL 25 MG TABLET PO (09:45)
[2020-11-09] MEDS: ASPIRIN 81 MG ENTERIC TABLET PO (09:45)
[2020-11-09] MEDS: lisinopriL 20 MG TABLET 40 MG PO (09:45)
[2020-11-09] MEDS: EZETIMIBE 10 MG TABLET PO (09:45)
[2020-11-09] MEDS: hydrALAZINE 10 MG TABLET PO ×2 (09:46→12:48)
[2020-11-09] MEDS: FAMOTIDINE 20 MG TABLET PO (09:46)
--- NOTE | 2020-11-09 10:23 | PM.DS ---
DS: Admitting Diagnosis Discharge Date 11/09/20 Admitting Diagnosis hip fx DS: Discharge Diagnosis Discharge Diagnosis (1) Subcapital fracture of left hip: Code(s): S72.012A - Unspecified intracapsular fracture of left femur, initial encounter for closed fracture Status: Acute Assessment and Plan: Patient presented the ER for fall and hip x-ray showing a subcapital fracture of the proximal left femur -status post percutaneous pinning of the left hip on 11/07/20 -pain is controlled -pt discharged to SNF -patient is wheelchair bound most of the time but can transfer on her own -Lovenox for DVT prophylaxis (2) Leukocytosis: Code(s): D72.829 - Elevated white blood cell count, unspecified Status: Acute Assessment and Plan: Improving, thought to be reactionary -UA does not appear to be infectious -chest x-ray a shows atelectasis but concerns for pneumonia -no infx suspected (3) T2DM (type 2 diabetes mellitus): Code(s): E11.9 - Type 2 diabetes mellitus without complications Status: Acute Assessment and Plan: Last glucose 141 -A1c 5.9 -continue home medications (4) Depression: Code(s): F32.9 - Major depressive disorder, single episode, unspecified Status: Acute Assessment and Plan: Chronic and stable -continue a escitalopram (5) History of CVA (cerebrovascular accident): Code(s): Z86.73 - Personal history of transient ischemic attack (TIA), and cerebral infarction without residual deficits Status: Acute Assessment and Plan: With chronic left-sided weakness -continue aspirin (6) Rib fracture: Code(s): S22.39XA - Fracture of one rib, unspecified side, initial encounter for closed fracture Status: Acute Assessment and Plan: Patient is acutely tender to the left ribs. Rib x-ray unable to determine the chronicity rib fractures to the left rib. -continue with pain medications DS: Summary Hospital Course Hospital Course: Date of service 11/09 patient is an 80-year-old female with chronic hemiplegia on the left side due to previous stroke who presented emergency room for fall to her left side with immediate pain to the left hip and left side. initial white blood cell count ER 21.6, hemoglobin 14.9, hematocrit 43.9, platelets 308. BMP relatively normal the exception of CO2 18 in renal glucose 234. Hip x-ray showed impacted subcapital fracture of the proximal left femur. she did have evidence of left rib fracture which is likely acute due to pain. Head CT shows no acute pathology. patient was admitted to hospital service and underwent a percutaneous pinning on 11/07/20. patient did well and the procedure and her pain was controlled. Although she is wheelchair-bound, she usually is able to transfer on her own. It was thought that she would benefit from SNF at discharge to get back to her prior level of function. She was started on Lovenox for DVT prophylaxis. She was educated about the worrisome signs and symptoms to come back to emergency room for and was discharged in stable condition. Status at Discharge Functional status at discharge: wheelchair bound Time Spent with Patient Time attestation: Total time spent providing and/or coordinating discharge services: Exam Narrative: General:Well developed well nourished patient HEENT: Normocephalic, atraumatic, PERRL, Sclerae anicteric, oral mucosa moist. Neck: Supple, no pain to palpation Resp: CTA Heart: RRR with no murmurs Abd: Soft, nontender. No pain to palpation. Positive bowel sounds Skin: Warm and dry Extremities: left hip incision site clean and dry without erythema, dehiscence or discharge. Weakness that is chronic to the left lower extremity Neuro: Alert and Oriented x 4. CN 2-12 intact. Significant weakness to the left upper extremity and left lower extremity that is chronic. DS: Data Data Completed and Pending Labs
[2020-11-09 11:06] VITALS: BP 119/59; PULSE 77; RESP 20; TEMP 36.4; O2SAT 96
[2020-11-09 11:48] LABS: EDCOVIDSCREEN Negative (Negative)
[2020-11-09 12:08] LABS: Glucose Point of Care 141 mg/dl (65-105)
== END 2020-11-09 14:30 | DRG 481 ==
LOC: ANHED 06:10 → ANH3MEDSUR 09:28
PROVIDERS: Orthopaedic Surgery; Admitting Provider Internal Medicine; Emergency Provider General Practice; Visit Provider Physician Assistant
PROC: 0QH734Z Insertion of Internal Fixation Device into Left Upper Femur, Percutaneous Approach (ICD-10-PCS; principal; 2020-11-07 07:30)
DX: S72.012A Unspecified intracapsular fracture of left femur, initial encounter for closed fracture (principal); S22.39XA Fracture of one rib, unspecified side, initial encounter for closed fracture; I69.354 Hemiplegia and hemiparesis following cerebral infarction affecting left non-dominant side; W18.39XA Other fall on same level, initial encounter; Y93.E8 Activity, other personal hygiene; Z20.822 Contact with and (suspected) exposure to COVID-19; D72.829 Elevated white blood cell count, unspecified; E11.9 Type 2 diabetes mellitus without complications; F32.A Depression, unspecified; Z66 Do not resuscitate; I25.2 Old myocardial infarction; Z79.84 Long term (current) use of oral hypoglycemic drugs; Z79.82 Long term (current) use of aspirin; Z87.891 Personal history of nicotine dependence; Z98.42 Cataract extraction status, left eye; Z98.41 Cataract extraction status, right eye
CPT/HCPCS: 36415; 70450; 71101; 72192; 73502; 80048; 80053; 81001; 82948; 83036; 83735; 85025; 85027; 86850; 86900; 86901; 87426; 93005; 96374; 97110; 97162; 97165; 97530; 97542; 99285; A9270; C1713; C1769; C9803; J0131; J0360; J0690; J1650; J2405; J3010; J7030; J7120

== ENCOUNTER 2024-09-17 19:20 | Emergency (ER) | payer MEDICARE, OTHER, SELFPAY ==
[2024-09-17] VITALS (11 sets, daily range): BP systolic 96–129; BP diastolic 44–73; PULSE 64–70; RESP 16–18; TEMP 36.3; O2SAT 83–93
--- NOTE | ~2024-09-17 | CT_ITS ---
CLINICAL INDICATION: Fall. COMPARISON: 11/06/2020. TECHNIQUE: Computed tomography (CT) of the pelvis was performed without intravenous contrast. The dos e-length product was 174.71 mGy-cm. FINDINGS/OBSERVATIONS: Subacute fracture involving the bilateral superior pubic rami with overlap of the fracture fragments on the right and only minimal displacement along the mid body of the pubic ramus on the left. An additional fracture is identified within the mid body of the right pubic ramus, with only minimall y displacement. Only trace callus formation is identified. Screw fixation of the left femoral head is identified. IMPRESSION: Bilateral superior pubic rami fracture and bilateral mid body pubic rami fractures. Reviewed, dictated and finalized at location A. IMPRESSION: Bilateral superior pubic rami fracture and bilateral mid body pubic rami fractu res.
--- NOTE | ~2024-09-17 | XR_ITS ---
HISTORY: fall, pain COMPARISON: None TECHNIQUE: 2 views of the left femur were performed FINDINGS: No acute or subacute fracture. Significant degenerative disease is identified within the tibiofemoral joint space. Screw fixation of the femoral acetabular joint space is present. Significant vascular calcifications are noted. Soft tissues are unremarkable without radiopaque foreign body. Age-appropriate mineralization. IMPRESSION: Degenerative disease, without acute fracture. Reviewed, dictated and finalized at location A.
--- NOTE | ~2024-09-17 | CT_ITS ---
History: Fall PROCEDURE: CT thoracic and lumbar spines without intravenous contrast. COMPARISON: None TECHNIQUE: Multiple contiguous axial images of the thoracic and lumbar spines were performed without the adminis tration of intravenous contrast. 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 Alignment is otherwise maintained. Age-appropriate degenerative disease is identified with osteophyte formation, disc space narrowing, f acet arthropathy and vacuum phenomena. No acute compression fractures are present. No soft tissue abnormality is noted. 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 Reviewed, dictated and finalized at location A. 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
--- OUTSIDE RECORDS SUMMARY | 2024-09-17 19:23 | XMS_ITS ---
Author Name Auto Generated, Auto Generated Organization [email or web address] [facility] ices Address [address] [place] [address] Phone [phone] Care Team Providers Care Decay Control Operator Name Role Phone Wolf Adams [phone] Functional Status No Results Mental Status No Results Allergies and Intolerances Name Onset Date Reaction Severity [id number] Reductase Inhibitors (Allergy) S un Nov 09 17:17:00 EDT 2020 metformin (Allergy) Sun Nov 09 17:16:00 EDT 2020 Encounters Program Name Primary Diagnosis Admission Date/Time Dis charge Date/Time Assisted Living Area Hemiplegia and hemiparesis following cerebral infarction affecting left non-dominant side TueMar 05 06:45:00 EST 2024 [facility] TueMar 06 19:00:00 EST 2024 Immunizations Name Dates Status TST-PPD intradermal TueMar 09 01:00:00 EST 2024 Completed TST-PPD intradermal TueMar 13 01:00:00 EST 2024 Completed TST-PPD intradermal TueMar 16 01:00:00 EST 2024 Completed TST-PPD intradermal TueMar 20 01:00:00 EST 2024 Completed influenza, trivalent, adjuvanted TueMar 26 01:0 0:00 EST 2024 Completed Pneumococcal conjugate PCV20 , polysaccharide [id number] conjugate, adjuvant, PF TueMar 26 01:00:00 EST 2024 Completed COVID-19, mRNA, LNP-S, PF, t ris-sucrose, 30 mcg/0.3 mL TueMar 26 01:00:00 EST 2024 Completed COVID-19, mRNA, LNP-S, PF, t ris-sucrose, 30 mcg/0.3 mL TueApr 03 01:00:00 EST 2024 Completed Pneumococcal conjugate PCV20 , polysaccharide [id number] conjugate, adjuvant, PF TueApr 10 01:00:00 EST 2024 Completed Medications Medication Directions Start Date End Date Blood Pressure Kit n/a KIT Other 2 Time s Daily for 3 Days Indication: vaccine TueMar 27 01:00:00 EST 2024Mar 30 00:59:00 EST 2024 Comirnaty (12y up)(PF) 30 mcg/0.3 mL intramuscular syringe 0.3 mL SYRINGE (ML) Intramuscular 1 Time Daily for 1 Day Indication: Vaccination TueApr 03 01:00:00 EST 2024Apr 04 00:59:00 EST 2024 Prevnar 20 (PF) 0.5 mL intramuscular syringe 0.5 mL SYRINGE (ML) Intramuscular 1 Time Daily for 1 Day Indication: Vaccination TueApr 10 01:00:00 EST 2024Apr 11 00:59:00 EST 2024 Blood Pressure Kit n/a KIT Other 2 Time s Daily for 3 Days Indication: vaccine TueApr 03 15:00:00 EST 2024Apr 06 14:59:00 EST 2024 Blood Pressure Kit n/a KIT Other 2 Time s Daily for 3 Days Indication: vaccine TueApr 10 15:00:00 EST 2024Apr 13 14:59:00 EST 2024 Prevnar 20 (PF) 0.5 mL intramuscular syringe 0.5 mL SYRINGE (ML) Intramuscular 1 Time Daily for 1 Day Indication: Vaccination TueMar 26 01:00:00 EST 2024Mar 27 00:59:00 EST 2024 Fluad Triv (65y up)(PF) 45 mcg (15 mcg x 3)/0.5 mL IM syringe 0.5 mL SYRINGE (ML) Intramuscular 1 Time Daily for 1 Day Indication: Vaccination TueMar 26 01:00:00 EST 2024Mar 27 00:59:00 EST 2024 Comirnaty (12y up)(PF) 30 mcg/0.3 mL intramuscular syringe 0.3 mL SYRINGE (ML) Intramuscular 1 Time Daily for 1 Day Indication: Vaccination TueMar 26 01:00:00 EST 2024Mar 27 00:59:00 EST 2024 amLODIPine 10 mg tablet 1 tablet TABLET Oral 1 Time Daily Indication: HTN TANKAGE GRINDER OPERATOR supervision x1 TueMar 06 01:00:00 EST 2024 Blood Pressure Kit 1 KIT Other 2 Times Monthly Indication: VS TANKAGE GRINDER OPERATOR to obtain TueMar 11 01:00:00 EST 2024 hydrALAZINE 10 mg tablet 1 tablet TABLET Oral 3 Times Daily Indication: Hypertension TANKAGE GRINDER OPERATOR supervision x1, x3, x4 TueMar 06 13:47:00 EST 2024 aspirin 325 mg tablet 0.5 tablet TABLET Oral 1 Time Daily Indication: heart health TANKAGE GRINDER OPERATOR Supervision x1 TueMar 05 01:00:00 EST 2024 atenoloL 25 mg tablet 1.5 tablets TABLET Oral 2 Times Daily Indication: HypertensionCNA Supervision x1 and x4 TueMar 05 01:00:00 EST 2024 cranberry 500 mg capsule 1 capusle CAPSU LE Oral 1 Time Daily Indication: Supplement TANKAGE GRINDER OPERATOR supervision x1 TueMar 05 01:00:00 EST 2024 escitalopram 5 mg tablet 1 tablet TABLET Oral 1 Time Daily Indication: depression TANKAGE GRINDER OPERATOR supervision x1 TueMar 05 01:00:00 EST 2024 ezetimibe 10 mg tablet 1 tablet TABLET O ral 1 Time Daily Indication: Hyperlipidemia TANKAGE GRINDER OPERATOR Supervision x1 TueMar 05 01:00:00 EST 2024 famotidine 20 mg tablet 1 tablet TABLET Oral 1 Time Daily Indication: GERD TANKAGE GRINDER OPERATOR Supervision x1 TueMar 05 01:00:00 EST 2024 hydrALAZINE 10 mg tablet 1 tablet TABLET Oral 3 Times Daily Indication: Hypertension TANKAGE GRINDER OPERATOR supervision x1, x3, x4 TueMar 05 01:00:00 2024Mar 06 13:48:00 EST 2024 Januvia 100 mg tablet 1 tablet TABLET Or al 1 Time Daily Indication: Diabetes TANKAGE GRINDER OPERATOR supervision x1 TueMar 05 01:00:00 EST 2024 lisinopriL 40 mg tablet 1 tablet TABLET Oral 1 Time Daily Indication: Hypertension TANKAGE GRINDER OPERATOR supervision x1 TueMar 05 01:00:00 EST 2024 TubersoL 5 tub. unit/0.1 mL intradermal injection solution 0.1 ml VIAL (ML) Intradermal 1 Time Weekly for 2 Weeks Indication: TB 1st injection on admission, then one week after. Read between 48 and 72 hours TueMar 06 15:00:00 EST 2024Mar 20 14:59:00 EST 2024 TubersoL 5 tub. unit/0.1 mL intradermal injection solution Read Results VIAL (ML) Other 1 Time Weekly for 2 Weeks Indication: TB read Read results between 48-72 hours after 1st and 2nd (1 week apart). Any reading of 10mm or greater results in a positive test, an x-ray will need to be ordered as a follow up. TueMar 09 01:00:00 EST 2024Mar 23 00:59:00 EST 2024 hydrALAZINE 10 mg tablet 10mg TABLET Ora l 3 Times Daily HTN TueNov 26 15:00:00 EDT 2020Dec 11 01:00:00 EDT 2020 aspirin 325 mg tablet 0.5 tab TABLET Ora l 1 Time Daily TueDec 07 09:00:00 EDT 2020Dec 11 01:00:00 EDT 2020 Tradjenta 5 mg tablet 1 TAB TABLET Oral 1 Time Daily TueNov 15 09:00:00 EDT 2020Dec 11 01:00:00 EDT 2020 TUBErsoL 5 tub. unit/0.1 mL intradermal injection solution 0.1 ml VIAL (ML) Intradermal 1 Time Weekly for 2 Weeks TueNov 10 17:00:00 EDT 2020Nov 24 16:59:00 EDT 2020 TUBErsoL 5 tub. unit/0.1 mL intradermal injection solution Read Results VIAL (ML) Other 1 Time Weekly for 2 Weeks TueNov 10 17:00:00 ED2020Nov 24 16:59:00 EDT 2020 aspirin 81 mg chewable tablet 81mg TABLET,CHEWABLE Oral 1 Time Daily for 27 Days DVT proph TueNov 09 17:00:00 ED2020Dec 06 16:59:00 EDT 2020 acetaminophen 325 mg tablet 650mg TABLET Oral PRN Every 6 Hours Pain TueNov 09 17:00:00 EDT 2020Dec 11 01:00:00 EDT 2020 enoxaparin 30 mg/0.3 mL subcutaneous syringe 30mg/0.3mL SYRINGE (ML) Subcutaneous 1 Time Daily for 27 Days DVT proph TueNov 09 17:00:00 EDT 2020 Sat Dec 06 04:01:00 EDT 2020 hydrALAZINE 10 mg tablet 10mg TABLET Ora l 4 Times Daily HTN TueNov 09 17:00:00 ED2020Nov 26 15:07:00 EDT 2020 Januvia 100 mg tablet 100mg TABLET Oral 1 Time Daily DM TueNov 09 17:00:00 EDT 2020 08 18:39:00 EDT 2020 ezetimibe 10 mg tablet 10mg TABLET Oral 1 Time Daily High Cholesterol TueNov 09 17:00:00 ED2020Dec 11 01:00:00 EDT 2020 lisinopriL 40 mg tablet 40mg TABLET Oral 1 Time Daily HTN TueNov 09 17:00:00 2020Dec 11 01:00:00 EDT 2020 Vitamin D2 1,250 mcg (50,000 unit) capsule 50,000 Unit CAPSULE Oral 1 Time Weekly Vitamin D deficiency TueNov 09 17:00:00 2020Dec 11 01:00:00 EDT 2020 escitalopram 5 mg tablet 5mg TABLET Oral 1 Time Daily Depression TueNov 09 17:00:00 ED2020Dec 11 01:00:00 EDT 2020 famotidine 20 mg tablet 20mg TABLET Oral 1 Time Daily GERD TueNov 09 17:00:00 EDT 2020Dec 11 01:00:00 EDT 2020 amLODIPine 10 mg tablet 10mg TABLET Oral 1 Time Daily HTN TueNov 09 17:00:00 T 2020Dec 11 01:00:00 EDT 2020 atenoloL 25 mg tablet 1.5 tablets (37.5m g) TABLET Oral 2 Times Daily HTN TueNov 09 19:00:00 EDT 2020Dec 11 01:00:00 EDT 2020 Problems Active Concerns * Unspecified intracapsular fracture of left femur, subsequent encounter for closed fracture with routine healing* Code: * Start Date: TueNov 09 00:00:00 EDT 2020 * End Date: TueMar 06 00:00:00 EST 2024 * Text: * Personal history of nicotine dependence* Code: * Start Date: TueNov 09 00:00:00 EDT 2020 * End Date: * Text: * Presence of aortocoronary bypass graft* Code: * Start Date: TueNov 09 00:00:00 EDT 2020 * End Date: * Text: * Major depressive disorder, single episode, unspecified* Code: * Start Date: TueNov 09 00:00:00 EDT 2020 * End Date: * Text: * Fracture of one rib, left side, subsequent encounter for fracture with routine healing* Code: * Start Date: TueNov 09 00:00:00 EDT 2020 * End Date: TueMar 06 00:00:00 EST 2024 * Text: * Hemiplegia and hemiparesis following cerebral infarction affecting left non- dominant side* Code: * Start Date: TueNov 09 00:00:00 EDT 2020 * End Date: * Text: * Atherosclerotic heart disease of [place] coronary artery without angina pectoris* Code: * Start Date: TueNov 09 00:00:00 EDT 2020 * End Date: * Text: * Type 2 diabetes mellitus without complications* Code: * Start Date: TueNov 09 00:00:00 EDT 2020 * End Date: * Text: * Presence of other bone and tendon implants* Code: * Start Date: TueNov 09 00:00:00 EDT 2020 * End Date: * Text: * Unspecified fall, subsequent encounter* Code: * Start Date: TueNov 09 00:00:00 EDT 2020 * End Date: TueMar 06 00:00:00 EST 2024 * Text: * Mixed hyperlipidemia* Code: * Start Date: TueNov 09 00:00:00 EDT 2020 * End Date: * Text: * Essential (primary) hypertension* Code: * Start Date: TueNov 09 00:00:00 EDT 2020 * End Date: * Text: * Gastro-esophageal reflux disease without esophagitis* Code: * Start Date: TueNov 09 00:00:00 EDT 2020 * End Date: * Text: * Vitamin D deficiency, unspecified* Code: * Start Date: TueNov 09 00:00:00 EDT 2020 * End Date: * Text: * Generalized anxiety disorder* Code: * Start Date: TueNov 09 00:00:00 EDT 2020 * End Date: * Text: * Unspecified hearing loss, unspecified ear* Code: * Start Date: TueNov 09 00:00:00 EDT 2020 * End Date: * Text: * skilled nursing (current) use of aspirin* Code: * Start Date: TueNov 09 00:00:00 EDT 2020 * End Date: * Text: * terminal system operator (current) use of anticoagulants* Code: * Start Date: TueNov 09 00:00:00 EDT 2020 * End Date: * Text: * terminal system operator (current) use of oral hypoglycemic drugs* Code: * Start Date: TueNov 09 00:00:00 EDT 2020 * End Date: * Text: * Personal history of (healed) traumatic fracture* Code: * Start Date: TueNov 06 00:00:00 EDT 2020 * End Date: * Text: * Old myocardial infarction* Code: * Start Date: TueNov 09 00:00:00 EDT 2020 * End Date: * Text: * Muscle weakness (generalized)* Code: * Start Date: TueMar 07 00:00:00 EST 2024 * End Date: * Text: * Unsteadiness on feet* Code: * Start Date: TueMar 07 00:00:00 EST 2024 * End Date: * Text: * Other fatigue* Code: * Start Date: TueMar 07 00:00:00 EST 2024 * End Date: * Text: * Other abnormalities of gait and mobility* Code: * Start Date: TueMar 07 00:00:00 EST 2024 * End Date: * Text: * Need for assistance with personal care* Code: * Start Date: TueMar 07 00:00:00 EST 2024 * End Date: * Text: * History of falling* Code: * Start Date: TueMar 05 00:00:00 EST 2024 * End Date: * Text: * Other disorders of plasma-protein metabolism, not elsewhere classified* Code: * Start Date: TueMar 20 00:00:00 EST 2024 * End Date: * Text: Vital Signs Vital Sign Measurement Date Systolic Blood Pressure 103.00 mm[Hg] Rust Sep 15 11:02:00 EDT 2024 Diastolic Blood Pressure 57.00 mm[Hg] Rust Sep 15 11:02:00 EDT 2024 Pulse Oximetry 93.00 % Rust Sep 15 11:02 :00 EDT 2024 Heart Rate 77.00 /min Rust Sep 15 11:02 :00 EDT 2024 Body temperature 97.80 [degF] Rust Sep 15 11:0 2:00 EDT 2024 Respiratory rate 18.00 /min Rust Sep 15 11:0 2:00 EDT 2024 Systolic Blood Pressure 103.00 mm[Hg] Rust Sep 15 10:45:00 EDT 2024 Diastolic Blood Pressure 57.00 mm[Hg] Rust Sep 15 10:45:00 EDT 2024 Pulse Oximetry 93.00 % Rust Sep 15 10:45 :00 EDT 2024 Heart Rate 77.00 /min Rust Sep 15 10:45 :00 EDT 2024 Body temperature 97.80 [degF] Rust Sep 15 10:4 5:00 EDT 2024 Respiratory rate 18.00 /min Rust Sep 15 10:4 5:00 EDT 2024 Systolic Blood Pressure 107.00 mm[Hg] Rust Sep 08 17:45:29 EDT 2024 Diastolic Blood Pressure 56.00 mm[Hg] Rust Sep 08 17:45:29 EDT 2024 Pulse Oximetry 95.00 % Rust Sep 08 17:45 :29 EDT 2024 Body weight 104.80 [lb_av] Rust Sep 08 17:45 :29 EDT 2024 Heart Rate 59.00 /min Rust Sep 08 17:45 :29 EDT 2024 Body temperature 98.00 [degF] Rust Sep 08 17:4 5:29 EDT 2024 Respiratory rate 18.00 /min Rust Sep 08 17:4 5:29 EDT 2024 Systolic Blood Pressure 128.00 mm[Hg] TueAug 22 20:47:30 EDT 2024 Diastolic Blood Pressure 54.00 mm[Hg] TueAug 22 20:47:30 EDT 2024 Pulse Oximetry 98.00 % TueAug 22 20:47 :30 EDT 2024 Respiratory rate 18.00 /min TueAug 22 20:4 7:30 EDT 2024 Body weight 99.00 [lb_av] TueAug 22 20:47 :30 EDT 2024 Heart Rate 76.00 /min TueAug 22 20:47 :30 EDT 2024 Body temperature 98.00 [degF] TueAug 22 20:4 7:30 EDT 2024 Systolic Blood Pressure 124.00 mm[Hg] TueAug 08 16:28:35 EDT 2024 Diastolic Blood Pressure 51.00 mm[Hg] TueAug 08 16:28:35 EDT 2024 Pulse Oximetry 90.00 % TueAug 08 16:28 :35 EDT 2024 Body weight 102.00 [lb_av] TueAug 08 16:28 :35 EDT 2024 Heart Rate 52.00 /min TueAug 08 16:28 :35 EDT 2024 Body temperature 97.60 [degF] TueAug 08 16:2 8:35 EDT 2024 Respiratory rate 18.00 /min TueAug 08 16:2 8:35 EDT 2024 Systolic Blood Pressure 124.00 mm[Hg] TueAug 08 16:25:45 EDT 2024 Diastolic Blood Pressure 51.00 mm[Hg] TueAug 08 16:25:45 EDT 2024 Pulse Oximetry 90.00 % TueAug 08 16:25 :45 EDT 2024 Heart Rate 52.00 /min TueAug 08 16:25 :45 EDT 2024 Body temperature 97.60 [degF] TueAug 08 16:2 5:45 EDT 2024 Respiratory rate 18.00 /min TueAug 08 16:2 5:45 EDT 2024 Systolic Blood Pressure 108.00 mm[Hg] TueJul 23 16:17:40 EDT 2024 Diastolic Blood Pressure 54.00 mm[Hg] TueJul 23 16:17:40 EDT 2024 Pulse Oximetry 95.00 % TueJul 23 16:17 :40 EDT 2024 Body weight 101.00 [lb_av] TueJul 23 16:17 :40 EDT 2024 Heart Rate 55.00 /min TueJul 23 16:17 :40 EDT 2024 Body temperature 97.70 [degF] TueJul 23 16:1 7:40 EDT 2024 Respiratory rate 18.00 /min TueJul 23 16:1 7:40 EDT 2024 Systolic Blood Pressure 107.00 mm[Hg] TueJul 09 22:44:49 EDT 2024 Diastolic Blood Pressure 47.00 mm[Hg] TueJul 09 22:44:49 EDT 2024 Pulse Oximetry 52.00 % TueJul 09 22:44 :49 EDT 2024 Body weight 103.20 [lb_av] TueJul 09 22:44 :49 EDT 2024 Heart Rate 90.00 /min TueJul 09 22:44 :49 EDT 2024 Body temperature 97.70 [degF] TueJul 09 22:4 4:49 EDT 2024 Respiratory rate 18.00 /min TueJul 09 22:4 4:49 EDT 2024 Systolic Blood Pressure 140.00 mm[Hg] TueJune 22 18:42:12 EDT 2024 Diastolic Blood Pressure 98.00 mm[Hg] TueJune 22 18:42:12 EDT 2024 Pulse Oximetry 94.00 % TueJune 22 18:42 :12 EDT 2024 Body weight 102.40 [lb_av] TueJune 22 18:42 :12 EDT 2024 Heart Rate 60.00 /min TueJune 22 18:42 :12 EDT 2024 Body temperature 98.10 [degF] TueJune 22 18:4 2:12 EDT 2024 Respiratory rate 18.00 /min TueJune 22 18:4 2:12 EDT 2024 Systolic Blood Pressure 107.00 mm[Hg] TueJune 08 19:49:22 EDT 2024 Diastolic Blood Pressure 54.00 mm[Hg] TueJune 08 19:49:22 EDT 2024 Pulse Oximetry 93.00 % TueJune 08 19:49 :22 EDT 2024 Heart Rate 52.00 /min TueJune 08 19:49 :22 EDT 2024 Body weight 101.00 [lb_av] TueJune 08 19:49 :22 EDT 2024 Body temperature 97.40 [degF] TueJune 08 19:4 9:22 EDT 2024 Respiratory rate 16.00 /min TueJune 08 19:4 9:22 EDT 2024 Systolic Blood Pressure 132.00 mm[Hg] TueMay 23 17:14:22 EDT 2024 Diastolic Blood Pressure 53.00 mm[Hg] TueMay 23 17:14:22 EDT 2024 Pulse Oximetry 92.00 % TueMay 23 17:14 :22 EDT 2024 Body weight 103.40 [lb_av] TueMay 23 17:14 :22 EDT 2024 Heart Rate 61.00 /min TueMay 23 17:14 :22 EDT 2024 Body temperature 96.20 [degF] TueMay 23 17:1 4:22 EDT 2024 Respiratory rate 20.00 /min TueMay 23 17:1 4:22 EDT 2024 Systolic Blood Pressure 140.00 mm[Hg] TueMay 22 08:33:00 EDT 2024 Diastolic Blood Pressure 97.00 mm[Hg] TueMay 22 08:33:00 EDT 2024 Pulse Oximetry 92.00 % TueMay 22 08:33 :00 EDT 2024 Heart Rate 52.00 /min TueMay 22 08:33 :00 EDT 2024 Body temperature 98.40 [degF] TueMay 22 08:3 3:00 EDT 2024 Respiratory rate 18.00 /min TueMay 22 08:3 3:00 EDT 2024 Systolic Blood Pressure 121.00 mm[Hg] TueMay 09 15:30:18 EDT 2024 Diastolic Blood Pressure 47.00 mm[Hg] TueMay 09 15:30:18 EDT 2024 Pulse Oximetry 91.00 % TueMay 09 15:30 :18 EDT 2024 Body weight 102.40 [lb_av] TueMay 09 15:30 :18 EDT 2024 Heart Rate 59.00 /min TueMay 09 15:30 :18 EDT 2024 Body temperature 97.60 [degF] TueMay 09 15:3 0:18 EDT 2024 Respiratory rate 18.00 /min TueMay 09 15:3 0:18 EDT 2024 Systolic Blood Pressure 130.00 mm[Hg] TueApr 22 16:53:59 EDT 2024 Diastolic Blood Pressure 59.00 mm[Hg] TueApr 22 16:53:59 EDT 2024 Pulse Oximetry 94.00 % TueApr 22 16:53 :59 EDT 2024 Body weight 100.80 [lb_av] TueApr 22 16:53 :59 EDT 2024 Heart Rate 56.00 /min TueApr 22 16:53 :59 EDT 2024 Body temperature 97.30 [degF] TueApr 22 16:5 3:59 EDT 2024 Respiratory rate 18.00 /min TueApr 22 16:5 3:59 EDT 2024 Body temperature 98.40 [degF] TueApr 13 08:4 4:28 EST 2024 Body temperature 97.50 [degF] TueApr 12 16:2 7:51 EST 2024 Body temperature 97.80 [degF] TueApr 12 09:1 5:28 EST 2024 Body temperature 97.60 [degF] TueApr 11 16:4 3:29 EST 2024 Body temperature 97.60 [degF] TueApr 11 09:5 5:42 EST 2024 Body temperature 98.10 [degF] TueApr 10 16:3 8:55 EST 2024 Systolic Blood Pressure 114.00 mm[Hg] TueApr 08 16:48:03 EST 2024 Diastolic Blood Pressure 49.00 mm[Hg] TueApr 08 16:48:03 EST 2024 Pulse Oximetry 94.00 % TueApr 08 16:48 :03 EST 2024 Body weight 100.40 [lb_av] TueApr 08 16:48 :03 EST 2024 Heart Rate 55.00 /min TueApr 08 16:48 :03 EST 2024 Body temperature 97.20 [degF] TueApr 08 16:4 8:03 EST 2024 Respiratory rate 18.00 /min TueApr 08 16:4 8:03 EST 2024 Body temperature 98.00 [degF] Fri Feb 28 09:0 8:28 EST 2024 Body temperature 97.80 [degF] Dalia Feb 27 17:2 1:16 EST 2024 Body temperature 98.00 [degF] Dalia Feb 27 09:4 1:12 EST 2024 Body temperature 98.20 [degF] Wed Feb 26 20:2 5:50 EST 2024 Body temperature 97.80 [degF] Wed Feb 26 09:5 6:27 EST 2024 Body temperature 97.60 [degF] Tue Feb 25 20:4 6:44 EST 2024 Body temperature 97.90 [degF] Dalia Feb 20 16:2 3:20 EST 2024 Body temperature 97.30 [degF] Dalia Feb 20 09:5 8:41 EST 2024 Body temperature 98.40 [degF] Wed Feb 19 16:5 4:04 EST 2024 Body temperature 98.10 [degF] Wed Feb 19 11:0 3:22 2024 Body temperature 98.40 [degF] Tue Feb 18 16:3 5:57 EST 2024 Body temperature 98.40 [degF] Tue Feb 18 16:3 4:50 EST 2024 Systolic Blood Pressure 128.00 mm[Hg] Sun b 16 17:43:23 EST 2024 Diastolic Blood Pressure 62.00 mm[Hg] Sun b 16 17:43:23 EST 2024 Pulse Oximetry 94.00 % Sun b 16 17:43 :23 EST 2024 Body weight 101.20 [lb_av] Sun b 16 17:43 :23 EST 2024 Heart Rate 60.00 /min Sun b 16 17:43 :23 EST 2024 Body temperature 97.00 [degF] Sun Feb 16 17:4 3:23 EST 2024 Respiratory rate 18.00 /min Sun b 16 17:4 3:23 EST 2024 Body Height 63.00 [in_i] Tue Feb 11 12:28 :31 EST 5 Systolic Blood Pressure 125.00 mm[Hg] TueMar 11 16:58:15 2024 Diastolic Blood Pressure 50.00 mm[Hg] TueMar 11 16:58:15 2024 Pulse Oximetry 92.00 % TueMar 11 16:58 :15 2024 Body weight 101.20 [lb_av] TueMar 11 16:58 :15 2024 Heart Rate 58.00 /min TueMar 11 16:58 :15 2024 Body temperature 97.10 [degF] TueMar 11 16:5 8:15 2024 Respiratory rate 18.00 /min TueMar 11 16:5 8:15 2024 Reason for Referral Past Medical History
--- OUTSIDE RECORDS SUMMARY | 2024-09-17 19:23 | XMS_ITS | Clinical Summary ---
Author Organization 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[employer] Gender Identity Not on file Sexual Orientation Not on file Plan of Treatment Health Maintenance Due Date Last Done Comments Hepatitis C Virus (HCV) Screening 1940 TdaP Immunization 1940 Pneumococcal Immunization (5 0+ years) (1 of 1 - PCV) 02/17/1988 Zoster Immunization (1 of 2) 02/17/1988 Respiratory Syncytial Virus (RSV) Immunization (Adult) (1 - 1-dose 75+ series) 2013 SARS-COV-2 Immunization ( season) 2023 12/19/2020, 03/31/2020, 03/10/2020 Influenza Immunization (#1) 2024 Hepatitis B Immunization Aged Out No longer eligible based on patient's age to complete this topic Human Papillomavirus (HPV) Immunization Aged Out No longer eligible b ased on patient's age to complete this topic Meningococcal Immunization (ACWY) Aged Out No longer eligible b ased on patient's age to complete this topic Rotavirus Immunization Aged Out No lo nger eligible based on patient's age to complete this topic
--- OUTSIDE RECORDS SUMMARY | 2024-09-17 19:23 | XMS_ITS | Patient Health Record ---
Author Organization [facility] [employer]. Address [address] [place] [address] Care Team Providers Care Salvationist Name Role Phone Sharonluis enriqueJonathon Primary Care Provider Allergies Allergen (clinical drug ingredient) Drug/Non Drug Allergy documented on EMR Reaction Allergy Type Onset Date Status Substance with 0-khaicww-3-methylgluta ryl-coenzyme A reductase inhibitor mechanism of action (substance) STATINSHMGCOA REDUCTASE INHIBITORS (uncoded) Unknown Allergy Active Substance with sulfonamide structure and antibacterial mechanism of action (substance) SULFA SULFONAMIDE ANTIBIOTICS (uncoded) Unknown Allergy Active metformin Metformin HCl Unknown Drug Allergy Act myron Reason For Referral No Information Medications Medication SIG (Take, Route, Frequency, Duration) Notes Start Date End Date Status Lisinopril 20 MG 1 tablet Orally Once a day; Duration: 90 days Active Zetia 10 MG 1 tablet Orally Once a day; Duration: 90 days Active Zetia 10mg TAKE 1 TABLET 10MG B ORAL Active Tricor 145mg TAKE 1 TABLET 145MG ORAL Active Vitamin D (Ergocalciferol) 50,000unit TAKE 1 CAPSULE BY OR ORAL Active Atenolol 50mg TAKE 1 TABLET 50MG B ORAL Active Lisinopril 20mg TAKE 1 TABLET BY BAKARI ORAL Active Azithromycin 250 MG 2 tablets on the day, then 1 tablet daily for 4 days Orally Once a day; Duration: 5 day(s) 10/24/2015 Not-Taking Aspirin Adult Low Strength 81mg take 2 tablet 162MG ORAL Active Atenolol 50mg TAKE 1 TABLET 50MG B ORAL Twice a day; Duration: 90 Active Vitamin D (Ergocalciferol) 73798 UNIT TAKE 1 CAPSULE BY ORAL ROUTE EVERY WEEK; Duration: 84 Active Januvia 100 MG 1 tablet Orally Once a day; Duration: 30 day(s) Active Farxiga 5 MG TAKE 1 TABLET EVERY MORNING BEFORE FOOD; Duration: 90 Not-Taking Azithromycin 250 MG [address] day, then 1 tablet daily for 4 days Orally Once a day; Duration: 5 day(s) 10/06/2015 Not-Taking Immunizations Vaccine Route Administration Date Status Comme nts Flulaval Medicare IM Intramuscular 11/30/2018 Administered Pneumococcal polysaccharide PPV23 (Pneumovax 23) IM Intramuscular 11/13/1997 Administered Pneumococcal polysaccharide PPV23 (Pneumovax 23) IM Intramuscular 11/30/2002 Administered Pneumococcal polysaccharide PPV23 (Pneumovax 23) IM Intramuscular 02/22/2008 Administered zzFluad (Influenza Vaccine, Adjuvanted) IM Intramuscular 11/11/2017 Administered zzFluvirin IM Intramuscular 12/19/2015 Administered zzInfluenza, High dose, injectable, preservative free (Fluzone) IM Intramuscular 01/06/2017 Pending Pneumococcal conjugate PCV 13 (Prevnar 13) Unknown 08/24/2013 Administered Social History Alcohol Screen (Audit-C) Question Answer Notes Did you have a drink containing alcohol in the p ast year? No Points 0 Interpretation Negative Problems Problem Type SNOMED Code ICD Code Onset Dates Problem Status W/U Status Risk Notes Problem Type 2 diabetes mellitus with other specified complication, without long-term current use of insulin (E11.69) Active confirmed Problem Type II diabetes mellitus without complication (411014540) Type 2 diabetes mellitus without complications (E11.9) 0 confirmed Stephen Problem Hyperlipidemia (59844667) Hyperlipidemia, unspecified (E78.5) 0 confirmed Stephen Problem Essential hypertension (01713998) Essential (primary) hypertension (I10) 0 confirmed Stephen Problem Chronic ischemic heart disease (315797606) Chronic ischemic heart disease, unspecified (I25.9) 0 confirmed Stephen Problem Myalgia (35917583) Myalgia (M79.1) 0 confi rmed Stephen Problem Swelling of head (584364086) Localized swelling, mass and lump, head (R22.0) 0 confirmed Stephen Problem Hyperlipidemia (47918993) Other and unspecified hyperlipidemia (E78.5) 0 confirmed Stephen Problem Type II diabetes mellitus without complication (564052425) DM w/o complication type II (E11.9) 0 confirmed Stephen Problem Chronic ischemic heart disease (031372818) Chronic ischemic heart disease (I25.9) 0 confirmed Stephen Problem Long-term current use of drug therapy (577350518) Encounter for long-term (current) use of other medications (Z79.899) 0 confirmed Stephen Problem Essential hypertension (25417602) Unspecified essential hypertension (I10) 0 confirmed Stephen Problem Vitamin D deficiency (01280549) Unspecified vitamin D deficiency (E55.9) 0 confirmed Stephen Problem Contact dermatitis caused by plants (disorder) (522038914) Contact dermatitis and other eczema due to plants (except food) (L25.5) 0 confirmed Stephen Problem Gastrointestinal hemorrhage (64388644) Hemorrhage of gastrointestinal tract, unspecified (K92.2) 0 confirmed Stephen Problem Hemorrhage of colon due to diverticulosis (548450055033175) Diverticulosis of colon with hemorrhage (K57.31) 0 confirmed Stephen Plan Of Treatment No Information Insurance Providers Payer Name Payer Address Payer Phone Subscriber Number Group Number Insured Name Patient Relationship to Insured Coverage Start Date Coverage End Date [employer] [place] [address] [address] [place] [id number] Self - patient is the insured 4 [employer] Benefit [address] [place] [address] [id number] [phone] Self - patient is the insured
--- OUTSIDE RECORDS SUMMARY | 2024-09-17 22:25 | XMS_ITS ---
Author Name Auto Generated, Auto Generated Organization [employer] [facility] ices Address [address] [place] [address] Phone [phone] Care Team Providers Care Feather Curling Machine Operator Name Role Phone Wolf Adams Functional Status No Results Mental Status No Results Allergies and Intolerances Name Onset Date Reaction Severity Vhjseub-UDT-QpC Reductase Inhibitors (Allergy) S un Nov 09 [...] 2024 Completed Pneumococcal conjugate PCV20 , polysaccharide [id number] conjugate, adjuvant, PF TueMar 26 01:00:00 EST 2024 Completed COVID-19, mRNA, LNP-S, PF, t ris-sucrose, 30 mcg/0.3 mL TueMar 26 01:00:00 EST 2024 Completed COVID-19, mRNA, LNP-S, PF, t ris-sucrose, 30 mcg/0.3 mL TueApr 03 01:00:00 EST 2024 Completed Pneumococcal conjugate PCV20 , polysaccharide [id number] conjugate, adjuvant, PF TueApr 10 01:00:00 EST [...] TABLET Oral 1 Time Daily Indication: HTN SIGNALS ANALYST supervision x1 TueMar 06 01:00:00 EST 2024 Blood Pressure Kit 1 KIT Other 2 Times Monthly Indication: VS SIGNALS ANALYST to obtain TueMar 11 01:00:00 EST 2024 hydrALAZINE 10 mg tablet 1 tablet TABLET Oral 3 Times Daily Indication: Hypertension SIGNALS ANALYST supervision x1, x3, x4 TueMar 06 13:47:00 EST 2024 aspirin 325 mg tablet 0.5 tablet TABLET Oral 1 Time Daily Indication: heart health SIGNALS ANALYST Supervision x1 TueMar 05 01:00:00 EST 2024 atenoloL 25 mg tablet 1.5 tablets TABLET Oral 2 Times Daily Indication: HypertensionCNA Supervision x1 and x4 TueMar 05 01:00:00 EST 2024 cranberry 500 mg capsule 1 capusle CAPSU LE Oral 1 Time Daily Indication: Supplement SIGNALS ANALYST supervision x1 TueMar 05 01:00:00 EST 2024 escitalopram 5 mg tablet 1 tablet TABLET Oral 1 Time Daily Indication: depression SIGNALS ANALYST supervision x1 TueMar 05 01:00:00 EST 2024 ezetimibe 10 mg tablet 1 tablet TABLET O ral 1 Time Daily Indication: Hyperlipidemia SIGNALS ANALYST Supervision x1 TueMar 05 01:00:00 EST 2024 famotidine 20 mg tablet 1 tablet TABLET Oral 1 Time Daily Indication: GERD SIGNALS ANALYST Supervision x1 TueMar 05 01:00:00 EST 2024 hydrALAZINE 10 mg tablet 1 tablet TABLET Oral 3 Times Daily Indication: Hypertension SIGNALS ANALYST supervision x1, x3, x4 TueMar 05 01:00:00 2024Mar 06 13:48:00 EST 2024 Januvia 100 mg tablet 1 tablet TABLET Or al 1 Time Daily Indication: Diabetes SIGNALS ANALYST supervision x1 TueMar 05 01:00:00 EST 2024 lisinopriL 40 mg tablet 1 tablet TABLET Oral 1 Time Daily Indication: Hypertension SIGNALS ANALYST supervision x1 TueMar 05 01:00:00 EST 2024 [...] * Text: * Atherosclerotic heart disease of [place] coronary artery without angina pectoris* Code: * [...] 2020 * End Date: * Text: * assisted (current) use of aspirin* Code: * Start Date: TueNov 09 00:00:00 EDT 2020 * End Date: * Text: * installment loan 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 (current) use of anticoagulants* Code: * Start Date: TueNov 09 00:00:00 EDT 2020 * End Date: * Text: * installment loan collector (current) use of oral hypoglycemic drugs* Code: [...] Measurement Date Systolic Blood Pressure 103.00 mm[Hg] [facility] Sep 15 11:02:00 EDT 2024 Diastolic Blood Pressure 57.00 mm[Hg] [facility] Sep 15 11:02:00 EDT 2024 Pulse Oximetry 93.00 % [facility] Sep 15 11:02 :00 EDT 2024 Heart Rate 77.00 /min [facility] Sep 15 11:02 :00 EDT 2024 Body temperature 97.80 [degF] [facility] Sep 15 11:0 2:00 EDT 2024 Respiratory rate 18.00 /min [facility] Sep 15 11:0 2:00 EDT 2024 Systolic Blood Pressure 103.00 mm[Hg] [facility] Sep 15 10:45:00 EDT 2024 Diastolic Blood Pressure 57.00 mm[Hg] [facility] Sep 15 10:45:00 EDT 2024 Pulse Oximetry 93.00 % [facility] Sep 15 10:45 :00 EDT 2024 Heart Rate 77.00 /min [facility] Sep 15 10:45 :00 EDT 2024 Body temperature 97.80 [degF] [facility] Sep 15 10:4 5:00 EDT 2024 Respiratory rate 18.00 /min [facility] Sep 15 10:4 5:00 EDT 2024 Systolic Blood Pressure 107.00 mm[Hg] [facility] Sep 08 17:45:29 EDT 2024 Diastolic Blood Pressure 56.00 mm[Hg] [facility] Sep 08 17:45:29 EDT 2024 Pulse Oximetry 95.00 % [facility] Sep 08 17:45 :29 EDT 2024 Body weight 104.80 [lb_av] [facility] Sep 08 17:45 :29 EDT 2024 Heart Rate 59.00 /min [facility] Sep 08 17:45 :29 EDT 2024 Body temperature 98.00 [degF] [facility] Sep 08 17:4 5:29 EDT 2024 Respiratory rate 18.00 /min [facility] Sep 08 17:4 5:29 EDT 2024 Systolic [...]
--- OUTSIDE RECORDS SUMMARY | 2024-09-17 22:26 | XMS_ITS ---
Author Name Auto Generated, Auto Generated Organization [facility] ices Address [address] [place] [address] Phone [phone] Care Team Providers Care De Icer Installer Name Role Phone Wolf Adams [phone] Functional Status No Results Mental Status No Results Allergies and Intolerances Name Onset Date Reaction Severity Ucbeqvo-WXV-HmB Reductase Inhibitors (Allergy) S un Nov 09 17:17:00 EDT 2020 metformin (Allergy) Sun Nov 09 17:16:00 EDT 2020 Encounters Program Name Primary Diagnosis Admission Date/Time Dis charge Date/Time Rehabilitation [facility] TueMar 06 19:00:00 EST 2024 Assisted Living Area Hemiplegia and hemiparesis following cerebral infarction affecting left non-dominant side TueMar 05 06:45:00 EST 2024 Immunizations Name Dates Status TST-PPD intradermal TueMar 09 01:00:00 EST 2024 Completed TST-PPD intradermal TueMar 13 01:00:00 EST 2024 Completed TST-PPD intradermal TueMar 16 01:00:00 EST 2024 Completed TST-PPD intradermal TueMar 20 01:00:00 EST 2024 Completed influenza, trivalent, adjuvanted TueMar 26 01:0 0:00 EST 2024 Completed Pneumococcal conjugate PCV20 , polysaccharide [id number] conjugate, adjuvant, PF TueMar 26 01:00:00 EST 2024 Completed COVID-19, mRNA, LNP-S, PF, t ris-sucrose, 30 mcg/0.3 mL TueMar 26 01:00:00 EST 2024 Completed COVID-19, mRNA, LNP-S, PF, t ris-sucrose, 30 mcg/0.3 mL TueApr 03 01:00:00 EST 2024 Completed Pneumococcal conjugate PCV20 , polysaccharide [id number] conjugate, adjuvant, PF TueApr 10 01:00:00 EST [...] TABLET Oral 1 Time Daily Indication: HTN TAX MANAGER PUBLIC supervision x1 TueMar 06 01:00:00 EST 2024 Blood Pressure Kit 1 KIT Other 2 Times Monthly Indication: VS TAX MANAGER PUBLIC to obtain TueMar 11 01:00:00 EST 2024 hydrALAZINE 10 mg tablet 1 tablet TABLET Oral 3 Times Daily Indication: Hypertension TAX MANAGER PUBLIC supervision x1, x3, x4 TueMar 06 13:47:00 EST 2024 aspirin 325 mg tablet 0.5 tablet TABLET Oral 1 Time Daily Indication: heart health TAX MANAGER PUBLIC Supervision x1 TueMar 05 01:00:00 EST 2024 atenoloL 25 mg tablet 1.5 tablets TABLET Oral 2 Times Daily Indication: HypertensionCNA Supervision x1 and x4 TueMar 05 01:00:00 EST 2024 cranberry 500 mg capsule 1 capusle CAPSU LE Oral 1 Time Daily Indication: Supplement TAX MANAGER PUBLIC supervision x1 TueMar 05 01:00:00 EST 2024 escitalopram 5 mg tablet 1 tablet TABLET Oral 1 Time Daily Indication: depression TAX MANAGER PUBLIC supervision x1 TueMar 05 01:00:00 EST 2024 ezetimibe 10 mg tablet 1 tablet TABLET O ral 1 Time Daily Indication: Hyperlipidemia TAX MANAGER PUBLIC Supervision x1 TueMar 05 01:00:00 EST 2024 famotidine 20 mg tablet 1 tablet TABLET Oral 1 Time Daily Indication: GERD TAX MANAGER PUBLIC Supervision x1 TueMar 05 01:00:00 EST 2024 hydrALAZINE 10 mg tablet 1 tablet TABLET Oral 3 Times Daily Indication: Hypertension TAX MANAGER PUBLIC supervision x1, x3, x4 TueMar 05 01:00:00 2024Mar 06 13:48:00 EST 2024 Januvia 100 mg tablet 1 tablet TABLET Or al 1 Time Daily Indication: Diabetes TAX MANAGER PUBLIC supervision x1 TueMar 05 01:00:00 EST 2024 lisinopriL 40 mg tablet 1 tablet TABLET Oral 1 Time Daily Indication: Hypertension TAX MANAGER PUBLIC supervision x1 TueMar 05 01:00:00 EST 2024 [...] * Text: * Atherosclerotic heart disease of [place] coronary artery without angina pectoris* Code: * [...] 2020 * End Date: * Text: * [facility] (current) use of aspirin* Code: * Start Date: TueNov 09 00:00:00 EDT 2020 * End Date: * Text: * watermelon inspector (current) use of anticoagulants* Code: * Start Date: TueNov 09 00:00:00 EDT 2020 * End Date: * Text: * watermelon inspector (current) use of oral hypoglycemic drugs* Code: [...] Measurement Date Systolic Blood Pressure 103.00 mm[Hg] [facility] Sep 15 11:02:00 EDT 2024 Diastolic Blood Pressure 57.00 mm[Hg] [facility] Sep 15 11:02:00 EDT 2024 Pulse Oximetry 93.00 % [facility] Sep 15 11:02 :00 EDT 2024 Heart Rate 77.00 /min [facility] Sep 15 11:02 :00 EDT 2024 Body temperature 97.80 [degF] [facility] Sep 15 11:0 2:00 EDT 2024 Respiratory rate 18.00 /min [facility] Sep 15 11:0 2:00 EDT 2024 Systolic Blood Pressure 103.00 mm[Hg] [facility] Sep 15 10:45:00 EDT 2024 Diastolic Blood Pressure 57.00 mm[Hg] [facility] Sep 15 10:45:00 EDT 2024 Pulse Oximetry 93.00 % [facility] Sep 15 10:45 :00 EDT 2024 Heart Rate 77.00 /min [facility] Sep 15 10:45 :00 EDT 2024 Body temperature 97.80 [degF] [facility] Sep 15 10:4 5:00 EDT 2024 Respiratory rate 18.00 /min [facility] Sep 15 10:4 5:00 EDT 2024 Systolic Blood Pressure 107.00 mm[Hg] [facility] Sep 08 17:45:29 EDT 2024 Diastolic Blood Pressure 56.00 mm[Hg] [facility] Sep 08 17:45:29 EDT 2024 Pulse Oximetry 95.00 % [facility] Sep 08 17:45 :29 EDT 2024 Body weight 104.80 [lb_av] [facility] Sep 08 17:45 :29 EDT 2024 Heart Rate 59.00 /min [facility] Sep 08 17:45 :29 EDT 2024 Body temperature 98.00 [degF] [facility] Sep 08 17:4 5:29 EDT 2024 Respiratory rate 18.00 /min [facility] Sep 08 17:4 5:29 EDT 2024 Systolic [...]
[2024-09-17] MEDS: ACETAMINOPHEN 500 MG TABLET 1000 MG PO (22:45)
--- NOTE | 2024-09-17 23:29 | ED_ITS ---
HPI - Fall General Chief Complaint: Fall Stated Complaint: back pain - fall Time Seen by Provider: 09/17/24 22:00 Source: patient Mode of arrival: EMS Limitations: no limitations History of Present Illness HPI Narrative: Patient is an 84-year-old female, with past medical history of CVA with left- sided hemiparesis, who presents the ED via EMS with report of a fall. Patient is a resident at [facility]. She reports she fell out of bed on Tuesday. Denied head injury or LOC. She is not on anticoagulation. Family member at bedside reports that [facility] performed imaging of her back and leg and was concerned for a fracture. Unsure what was fractured. She was sent here for further evaluation. Patient complains of pain to her left thigh and lower back. Denies numbness, bowel or bladder incontinence, saddle anesthesia, headache, dizziness, leg swelling. Related Data Home Medications ?Medication ?Instructions ?Recorded ?Confirmed ?Last Taken ?Type aspirin 162.5 mg capsule,extended 162.5 mg PO DAILY 12/18/18 01/14/21 02/25/19 History release 24 hr (Durlaza) atenolol 25 mg tablet 37.5 mg PO BID 12/18/18 01/14/21 02/25/19 History ezetimibe 10 mg tablet 10 mg PO DAILY 02/22/19 01/14/21 02/25/19 History sitagliptin phosphate 100 mg 100 mg PO DAILY 02/22/19 01/14/21 02/25/19 History tablet (Januvia) amlodipine 2.5 mg tablet 10 mg PO DAILY 11/06/20 01/14/21 Unknown History Allergies Allergy/AdvReac Type Severity Reaction Status Date / Time metformin Allergy Unknown Unknown Verified 01/14/21 13:43 Rqqsqpw-ZLH-XtO Reductase Allergy Unknown Unknown Verified 01/14/21 13:43 Inhibitor (Wdpwgxp-Ylt-Zsk Reductase Inhibitor) Review of Systems Review of Systems: All systems reviewed & are unremarkable except as noted in HPI. All systems reviewed & are unremarkable except as noted in HPI and below PMFSH Past Medical History Medical History CVA (cerebral vascular accident) 02/2019, with residual left sided arm/leg deficits Shingles Arm fracture, left Arthritis HLD (hyperlipidemia) Myocardial infarction Cataracts, bilateral Diabetes Hypertension Surgical History Surgical History History of hip surgery (~11/07/20) Percutaneous Pinning Lt Hip H/O cataract extraction bilaterally H/O colectomy due to diverticular bleed; patient denies this Hx of cholecystectomy History of intestinal surgery History of cardiac catheterization Hx of CABG 4 vessels Family History Family History Father Cerebrovascular accident Mother Colon cancer Sibling Esophageal cancer Alzheimers disease Social History Social History Social History: Patient is single and has never . She requested to be a DNR. 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 She quit smoking when she had her heart attack in 1997. She smoked for about 30 years and had 1PPD. She drinks one drink a year at [facility] Smoking packs per day: 1 Smoking cigarettes per day: 20.0 Years smoked: 30 Smoking pack-years: 30.00 Smoking status: Former smoker Tobacco type: cigarettes Second hand tobacco smoke exposure: No Smoking end date: 03/03/97 Alcohol intake: never Substance use: never Substance use type: does not use Living arrangements: alone Occupation/Education: retired Gender identity (if verbalized by the patient): Female Spiritual care concerns: No Agree to blood products: Yes Exam Narrative: GENERAL: Elderly, frail/thin, non-toxic, in no acute distress. HEAD: Normocephalic, atraumatic. RESPIRATORY: Airway patent, respirations nonlabored. CARDIOVASCULAR: Regular rate and rhythm. Peripheral pulses intact. ABDOMINAL: Soft, no tenderness, nondistended. Normoactive BS. MUSCULOSKELETAL: Moves all extremities. No gross deformities. Chronic left hemiparesis r/t previous CVA. Mild diffuse lumbosacral tenderness. No palpable bony deformities or step offs. No appreciable tenderness throughout L thigh/LLE. No swelling or bruising. SKIN: Warm, dry, normal color. NEURO: A&O X3. Speech clear. Cranial nerves II-XII grossly intact. No ataxic movements. PSYCHIATRIC: Appropriate mood and affect. Normal interaction. Course Vital Signs Vital signs: Vital Signs Temperature 97.4 F L 09/17/24 19:30 Pulse Rate 64 09/17/24 19:30 Respiratory Rate 16 09/17/24 19:30 Blood Pressure 101/53 L 09/17/24 19:30 Pulse Oximetry 92 09/17/24 19:30 Oxygen Delivery Room Air 09/17/24 19:30 Temperature 97.4 F L 09/17/24 19:30 Pulse Rate 92 09/18/24 00:45 Respiratory Rate 18 09/18/24 00:45 Blood Pressure 91/42 L 09/18/24 00:45 Pulse Oximetry 90 09/18/24 00:45 Oxygen Delivery Room Air 09/17/24 21:43 MDM - Fall MDM Narrative Medical decision making narrative: Patient presented to ED a few days status post accidental fall from bed. Reports pain to back and L leg. There was report of possible fx from imaging performed at senior care. Vital signs are stable upon arrival. Patient neurovascularly intact. No gross deformities on exam. Patient is wheelchair- bound/nonambulatory at baseline. Lives at assisted living. Imaging obtained here: Thoracic/lumbar CT negative for fracture X-ray of left femur negative Pelvic CT shows bilateral superior pubic rami fracture and bilateral mid body pubic rami fractures. Discussed case with Dr. Lujan, orthopedics, advised f/u in 1 week in office. Discussed imaging findings with patient and family at bedside. Patient to remain wheelchair-bound at this time. Feel safe for discharge back to assisted living. Will provide pain medication for home use as needed. Advised close follow-up with Orthopedics. Given strict return precautions. Discharged in stable condition. Medical Records Attestation: I reviewed the patient's medical records. Imaging Data Attestation: I personally reviewed and interpreted this imaging study as follows: Radiologist's impression: ITS Impressions Thoracic/Lumbar Spine CT 09/17/24 23:56 Impression: Degenerative disease, without acute fracture. Pelvis CT 09/18/24 00:00 IMPRESSION: Bilateral superior pubic rami fracture and bilateral mid body pubic rami fractures. Femur X-Ray 09/18/24 00:08 IMPRESSION: Degenerative disease, without acute fracture. Discharge Plan Discharge Clinical Impression: Multiple pelvic fractures Qualifiers: Encounter type: initial encounter Fracture type: closed Fracture alignment: without disruption of pelvic ring Qualified Code(s): S32.82XA - Multiple frac tures of pelvis without disruption of pelvic ring, initial encounter for closed fracture Accidental fall from bed Qualifiers: Encounter type: initial encounter Qualified Code(s): W06.XXXA - Fall from bed, initial encounter Patient Disposition: [facility] Condition: Stable Instructions: Antibiotic Form, Pelvic Fracture (ED) Additional Instructions: Follow-up with orthopedics for further evaluation. Call office tomorrow to make appointment. Recommend ice to areas of pain, Tylenol as needed for pain. Tramadol as needed for more severe pain. Return to the ED for worsening or severe pain, recurrent fall or injury, numbness, or any other symptoms of concern. Patient Language: [place] Prescriptions: New tramadol 50 mg tablet 25 mg PO Q6H PRN (Reason: pain) Qty: 10 0RF No Action atenolol 25 mg tablet 37.5 mg PO BID Rx Instructions: take for 90 days, start date 10/25/2020 Durlaza 162.5 mg capsule,extended release 24hr 162.5 mg PO DAILY ergocalciferol (vitamin D2) [Vitamin D2] 1,250 mcg (50,000 unit) Capsule 50,000 unit PO Mo@0900 Qty: 0 0RF Rx Instructions: patient takes on Mondays escitalopram oxalate 10 mg Tablet 5 mg PO QAM Qty: 0 0RF Januvia 100 mg Tablet 100 mg PO DAILY ezetimibe 10 mg tablet 10 mg PO DAILY lisinopril 40 mg tablet 40 mg PO DAILY 30 Days Qty: 30 0RF amlodipine 2.5 mg tablet 10 mg PO DAILY aspirin 81 mg capsule 81 mg PO DAILY Qty: 30 0RF hydralazine 10 mg Tablet 10 mg PO QID Qty: 120 0RF Follow-up/Referrals: PHYSICIAN,CERTIFIED SKI PATROLLER [Primary Care Provider] - Monico Lujan MD [Physician] - (ORTHOPEDICS) Time of Disposition: 01:18
[2024-09-18] VITALS (9 sets, daily range): BP systolic 87–107; BP diastolic 38–53; PULSE 77–92; RESP 18; O2SAT 90–95
== END 2024-09-18 04:19 ==
PROVIDERS: Emergency Provider Physician Assistant
DX: S32.592A Other specified fracture of left pubis, initial encounter for closed fracture (principal); S32.591A Other specified fracture of right pubis, initial encounter for closed fracture; I69.954 Hemiplegia and hemiparesis following unspecified cerebrovascular disease affecting left non-dominant side; I10 Essential (primary) hypertension; I25.2 Old myocardial infarction; E78.5 Hyperlipidemia, unspecified; E11.9 Type 2 diabetes mellitus without complications; M19.90 Unspecified osteoarthritis, unspecified site; Z66 Do not resuscitate; Z95.1 Presence of aortocoronary bypass graft; Z87.891 Personal history of nicotine dependence; Z98.42 Cataract extraction status, left eye; Z98.41 Cataract extraction status, right eye; Z90.49 Acquired absence of other specified parts of digestive tract; Z79.84 Long term (current) use of oral hypoglycemic drugs; Z79.82 Long term (current) use of aspirin; Z79.899 Other long term (current) drug therapy; W06.XXXA Fall from bed, initial encounter
CPT/HCPCS: 72128; 72131; 72192; 73552; 99284; A9270